=== PATIENT | male | born 1945 | race Caucasian/White ===

== ENCOUNTER 2020-07-27 12:04 | Emergency (ER) | payer MEDICARE, SELFPAY ==
--- NOTE | ~2020-07-27 | CT_ITS ---
EXAMINATION: CT brain wo con EXAM DATE: 07/27/2020 14:05 INDICATION: Increasing confusion, altered mental status. History dementia and Parkinson's. TECHNIQUE: Spiral CT of the head was performed without contrast. Axial, coronal and sagittal images were reviewed. The dose-length product (DLP) for this examination was 756.67 mGy-cm. The exposure w as tailored according to patient size, and iterative reconstruction (ASIR) was used as additional dos e reduction technique. There is no prior study for comparison. FINDINGS: There is no acute intraparenchymal hemorrhage. No evidence of intraparenchymal brain mass lesion. No evidence of acute infarction. Please note that initial head CT has limited sensitivity f or small or acute infarctions. There is moderate periventricular and subcortical hypodensity, nonspec ific but probably related to small vessel ischemic disease. There is ventricular prominence out of proportion to sulci which is suspected most likely central atrophy rather than hydrocephalus. Normal pressure hydrocephalus cannot be excluded (clinical triad ataxia/gait disturbance, dementia, urinary incontinence). There is intracranial carotid arteriosclerosis. There are no extra-axial collectio ns. There is no mass effect or midline shift. The orbits are unremarkable. Soft tissue is unremark able. Mild to moderate right maxillary sinus mucoperiosteal thickening. IMPRESSION: 1. No acute intracranial findings. 2. Chronic age related findings. Reviewed, dictated and finalized at location A.
[2020-07-27 12:11] VITALS: BP 148/83; PULSE 72; RESP 16; TEMP 36.6; O2SAT 99
[2020-07-27 12:29] LABS: Basophils Absolute Auto 0.05 K/mm3 (0.00-0.10); Basophils Percent Auto 0.6 % (0.0-1.0); Eosinophils Absolute Auto 0.24 K/mm3 (0.02-0.50); Eosinophils Percent Auto 2.7 % (1.0-6.0); Hematocrit 45.4 % (37.0-46.0); Immature Granulocyte Absolute 0.02 K/mm3 (0.00-0.00); Immature Granulocyte Percent A 0.2 % (0.0-0.0); Lymphocytes Absolute Auto 2.09 K/mm3 (1.10-4.50); Lymphocytes Percent Auto 23.7 % (18.0-42.0); Mean Corpuscular Hemoglobin 29.6 pg (27.0-31.0); Mean Corpuscular Volume 89.5 fL (78.0-102.0); Mean Platelet Volume 9.6 fl (8.7-11.0); Monocytes Absolute Auto 0.69 K/mm3 (0.10-0.90); Monocytes Percent Auto 7.8 % (2.0-11.0); Neutrophils Absolute Auto 5.7 K/mm3 (1.7-7.2); Platelet Count Result 205 K/mm3 (150-420); Red Blood Count 5.07 M/mm3 (4.70-6.10); Red Cell Distribution Width 13.1 % (11.6-14.4); White Blood Count 8.8 K/mm3 (4.8-10.8)
[2020-07-27 12:42] LABS: Alanine Aminotransferase 38 U/L (16-63); Albumin Level 3.5 g/dL (3.4-5.0); Alkaline Phosphatase 101 U/L (46-116); Anion Gap 6 mmol/L (8-16); Aspartate Amino Transferase 22 U/L (15-37); Bilirubin,Total 0.4 mg/dL (0.00-1.00); Blood Urea Nitrogen 16 mg/dL (7-18); Calcium 8.9 mg/dL (8.5-10.1); Carbon Dioxide 28 mmol/L (21-32); Chloride 101 mmol/L (98-108); Estimated CRCL calculation 56 ml/min; Estimated Glomerular Filt Rate > 60; Glucose 102 mg/dL (70-99); Osmolality Calculated 281 mOsm/kg (285-295); Potassium 3.9 mmol/L (3.5-5.1); Sodium 135 mmol/L (136-145); Total Protein 7.9 g/dL (6.4-8.2)
[2020-07-27 13:46] LABS: Add Urine Microscopic? YES; Appearance Urine Clear (Clear); Bilirubin Urine Negative (Negative); Blood Urine 2+ (Negative); Color Urine Yellow (Yellow); Glucose Urine UA Negative (Negative); Ketones Urine Negative (Negative); Leukocyte Esterase Ur Negative (Negative); Nitrate Urine Negative (Negative); Protein Urine Negative (Negative); Specific Grav Ur 1.025 (1.010-1.020); Urobilinogen Urine 0.2 mg/dL (0.2-1.0)
[2020-07-27 13:50] VITALS: BP 116/60; PULSE 67; RESP 18; O2SAT 96
[2020-07-27 13:52] LABS: Bacteria Urine None seen /hpf; Squamous Epithelial Cell Urine Rare /hpf (Few); WBC Urine 0-3 /hpf (0-3)
[2020-07-27 13:53] LABS: Mucus Urine Few /lpf
[2020-07-27 14:36] VITALS: BP 135/98; PULSE 66; RESP 18
--- NOTE | 2020-07-27 14:36 | ED.WEAKNESS ---
HPI - Weakness General Chief complaint: Altered Mental Status Stated complaint: ambulance Time Seen by Provider: 07/27/20 12:20 Source: patient and family Mode of arrival: ambulatory Limitations: no limitations History of Present Illness HPI Narrative: Patient is brought in by . He has a history of dementia and evidently pooped in the bedroom. Mrs. Rod is concerned because he has not done this before. She was worried his mental status might have changed. Other than this he has evidently been well. Evidently he made quite a mess. He never complained of any discomfort, or said anything to alert her of this behavior. He has had no symptoms at home to precede this. She is worried his dementia has gotten worse. Related Data Home Medications Medication Instructions Recorded Confirmed aspirin [Jonny Childrens Aspirin] 81 mg PO QPM 07/27/20 07/27/20 carbidopa-levodopa 1 tablet PO TID 07/27/20 07/27/20 desmopressin 0.4 mg PO QPM 07/27/20 07/27/20 donepezil 10 mg PO BID 07/27/20 07/27/20 mirtazapine 15 mg PO HS 07/27/20 07/27/20 rosuvastatin [Crestor] 10 mg PO QPM 07/27/20 07/27/20 sertraline 150 mg PO DAILY 07/27/20 07/27/20 tamsulosin 0.4 mg PO BID 07/27/20 07/27/20 Review of Systems Constitutional: Constitutional: Reports no additional constitutional complaints Eyes: Eyes: Reports no additional eye complaints ENT: Reports system reviewed and no additional complaints, except as documented Cardiovascular: Cardiovascular: Reports no additional cardiovascular complaints Respiratory: Respiratory: Reports no additional respiratory complaints Gastrointestinal: Gastrointestinal: Reports no additional gastrointestinal complaints Genitourinary: Genitourinary: Reports no additional male genitourinary complaints Musculoskeletal: Musculoskeletal: Reports no additional musculoskeletal complaints Integumentary/Breasts: Skin/Breast: Reports system reviewed and no additional complaints, except as docu Neurologic: Reports system reviewed and no additional complaints, except as documented Psychiatric: Psychiatric: Reports no additional psychiatric complaints Endocrine: Endocrine: Reports no additional endocrine complaints Hematologic/Lymphatic: Hematologic/Lymphatic: Reports no additional hematologic/lymphatic complaints Allergic/Immunologic: Allergic/Immunologic: Reports no additional allergic/immunologic complaints [facility] Past Medical History Medical History Alzheimer disease Dementia Hernia Hyperlipidemia Parkinson disease Renal calculi Surgical History Surgical History Stented coronary artery Family History Family History Father No problems noted. Social History Social History (Updated 07/27/20 @ 19:54 by Kulwant Alejandre MD) Smoking status: Former smoker Tobacco type: cigarettes Alcohol intake: never Substance use: never Living arrangements: with family Sexual Orientation (if Verbalized by the Patient): Straight or Heterosexual Exam Const: General: no acute distress Orientation/consciousness: patient oriented x3 HENMT: Head: normal to inspection Ears: TM's normal bilaterally General nose exam: Normal external nose present Face and sinus: normal facial exam Mouth: Yes Normal oral and palatal mucosa present Throat: posterior oropharynx normal Eyes: Conjunctivae: conjunctivae normal Neck: Neck: normal visual inspection Chest: Chest palpation & inspection: normal inspection of the chest Resp: Effort & Inspection: normal respiratory effort Auscultation: clear to auscultation bilaterally Cardio: Rate: regular rate Rhythm: regular rhythm GI: GI Palp: Yes Soft to palpation (nontender ) Back/Spine/Pelvis: Back: no CVA tenderness Skin: General skin exam: normal color Neuro: General: patient oriented x3 Extrem: General: norm
== END 2020-07-27 14:51 | disposition home or self-care (01) ==
PROVIDERS: Emergency Provider Emergency Medicine; PCP Internal Medicine
DX: G30.9 Alzheimer's disease, unspecified (principal); E78.5 Hyperlipidemia, unspecified; Z87.891 Personal history of nicotine dependence
CPT/HCPCS: 36415; 70450; 80053; 81001; 85025; 99282; 99284

== ENCOUNTER 2020-08-22 21:15 | Emergency (ER) | payer MEDICARE, SELFPAY ==
--- NOTE | ~2020-08-22 | CT_ITS ---
EXAMINATION: CT brain wo con DATE: 08/22/2020 22:05 INDICATION: Confusion post unwitnessed fall. TECHNIQUE: Computed tomography (CT) of the head was performed without intravenous contrast. Sagittal and coronal reconstructions were performed. The mA was adjusted according to patient size. Iterative reconstruction technique was employed. The dose-length product was 1362.00 mGy-cm. COMPARISON: head CT dated 07/27/2020 FINDINGS: Prominent motion artifact which moderately limits evaluation. No fracture. No acute intracranial hemo rrhage, acute infarction or abnormal extra axial fluid collection. There is moderate scattered white matter hypoattenuation consistent with chronic small vessel ischemic disease. Again seen is symmetric enlargement of the ventricles which is disproportionate to the relatively mild increased prominence of the sulci which could be related to either central predominant cerebral atrophy or normal pressure hydrocephalus. No mass/mass effect. Mucosal thickening in the right maxillary and bilateral ethmoid sinuses. The orbits and mastoid air cells are normal. IMPRESSION: 1. Motion artifact moderately limiting evaluation. 2. No fracture or acute intracranial process. 3.. Moderate scattered white matter hypoattenuation consistent with chronic small vessel ischemic dis ease. 4. Unchanged disproportionate enlargement of the ventricles relative to the sulci which could be due to central predominant atrophy or normal pressure hydrocephalus (NPH: clinical triad ataxia/gait dist urbance, dementia, urinary incontinence). Reviewed, dictated and finalized at location A. IMPRESSION: 1. Motion artifact moderately limiting evaluation. 2. No fracture or acute intracranial process. 3.. Moderate scattered white matter hypoattenuation consistent with chronic sma ll vessel ischemic disease. 4. Unchanged disproportionate enlargement of the ventricles relative to the sul ci which could be due to central predominant atrophy or normal pressure hydroce phalus (NPH: clinical triad ataxia/gait disturbance, dementia, urinary incontin ence).
--- NOTE | ~2020-08-22 | CT_ITS ---
EXAMINATION: CT pelvis wo con DATE: 08/22/2020 22:06 INDICATION: Left hip pain post fall TECHNIQUE: High resolution computed tomography (CT) of the pelvis was performed without intravenous c ontrast. Additional sagittal and coronal reconstructions were performed. Automated exposure control a nd iterative reconstruction technique were employed. The dose-length product was 828.19 mGy-cm. COMPARISON: 05/22/2013 FINDINGS: Transcervical fracture of the proximal left femur with proximal migration resulting in varus angulati on as well as external rotation resulting in posterior angulation. The femoral head remains normally centered within the left acetabulum with mild left hip osteoarthritis. No other fractures identified. Mild to moderate right hip osteoarthritis. Mild lumbar spondylosis. Normal appendix. Moderate amount of stool in the distal colon. Large fat-containing right inguinal hernia which extends to the base o f the scrotum. Postoperative change of prior left inguinal hernia repair. IMPRESSION: 1. Displaced and angulated transcervical fracture of the proximal left femur. Reviewed, dictated and finalized at location A.
--- NOTE | ~2020-08-22 | CT_ITS ---
EXAMINATION: CT cervical spine wo con DATE: 08/22/2020 22:05 INDICATION: Unwitnessed fall with head injury TECHNIQUE: Computed tomography (CT) of the cervical spine was performed without intravenous contrast. Automated exposure control and iterative reconstruction technique were employed. The dose-length pro duct was 128.29 mGy-cm. COMPARISON: None FINDINGS: Alignment is normal. Anterior fusion at C5-C6. Unfused vertebral body heights are normal. No fracture . Moderate osteoarthritis at the atlantoaxial articulation with some heterotopic ossification along t he stabilizing ligaments. Moderate disc height loss at C6-C7. Mild disc height loss at C3-C4 and C4-C 5. Cervical soft tissues are unremarkable. Visual is apices of the lungs are clear. The following dis c levels are specifically discussed: C2-C3: Disc is bulging. Heterotopic ossification along the posterior longitudinal ligament. There is mild bilateral uncovertebral joint osteoarthritis. There is mild right and severe left facet joint os teoarthritis. There is no neural foraminal stenosis. There is mild central canal stenosis. C3-C4: Small posterior disc osteophyte complex. There is moderate right and severe left uncovertebral joint osteoarthritis. There is moderate right and severe left facet joint osteoarthritis. There is m ild right and moderate left neural foraminal stenosis. There is mild central canal stenosis. C4-C5: Disc is bulging. There is moderate bilateral uncovertebral joint osteoarthritis. There is mode rate bilateral facet joint osteoarthritis. There is mild right and minimal left neural foraminal sten osis. There is mild central canal stenosis. C5-C6: Disc space and uncovertebral joints are fused with posterior osteophytes. There is mild bilate ral facet joint osteoarthritis. There is mild right and moderate left neural foraminal stenosis. Ther e is mild central canal stenosis. C6-C7: Disc is mildly bulging. There is severe bilateral uncovertebral joint osteoarthritis. There is mild to moderate bilateral facet joint osteoarthritis. There is moderate right and mild to moderate left neural foraminal stenosis. There is mild central canal stenosis. C7-T1: The disc does not extend beyond the endplate margin. There is no uncovertebral joint osteoarth ritis. There is moderate bilateral facet joint osteoarthritis. There is no neural foraminal stenosis. There is no central canal stenosis. IMPRESSION: 1. Moderate cervical spondylosis with anterior fusion at C5-C6. No acute osseous abnormality. Reviewed, dictated and finalized at location A. IMPRESSION: 1. Moderate cervical spondylosis with anterior fusion at C5-C6. No acute osseou s abnormality.
[2020-08-22] MEDS: fentaNYL CITRATE INJ (*CRX) 100 MCG/2 ML VIAL 50 MCG IV PUSH (21:15)
--- NOTE | 2020-08-22 21:26 | ED.GENADULT ---
HPI - General Adult General Chief complaint: Fall Stated complaint: AMB Source: EMS Mode of arrival: EMS Limitations: dementia History of Present Illness HPI narrative: Jim is a 75M with a PMH of alzheimer dementia, HLD, and Parkinson's that was brought to the ED by EMS after an unwitnessed fall. He was walking in the hallway when he wasn't suppose to be and fell. He was put in a wheelchair then his bed. At that time there was reportedly no pain. However, he later started having pain so EMS was called. He is only oriented to self so further history is obtainable. Related Data Home Medications Medication Instructions Recorded Confirmed carbidopa-levodopa 2 tablet PO QID 07/27/20 08/22/20 sertraline 150 mg PO DAILY 07/27/20 08/22/20 tamsulosin 0.8 mg PO DAILY 07/27/20 08/22/20 tuberculin PPD [Tubersol] 0.1 tb unit INTRADERMAL ONCE 08/22/20 08/22/20 Allergies Allergy/AdvReac Type Severity Reaction Status Date / Time No Known Allergies Allergy Verified 08/22/20 21:48 Review of Systems Review of Systems: ROS unobtainable: Yes unobtainable due to mental status [facility] Past Medical History Medical History Alzheimer disease Dementia Hernia Hyperlipidemia Parkinson disease Renal calculi Surgical History Surgical History Stented coronary artery Family History Family History Father No problems noted. Social History Social History Smoking status: Former smoker Tobacco type: cigarettes Alcohol intake: never Substance use: never Gender identity (if verbalized by the patient): Male Exam Const: Other: Oriented to self only. Screaming in pain when he moved before pain meds. HENMT: Other: Normocephalic, atrauamtic. Has c-collar on placed by EMS Eyes: Conjunctivae: conjunctivae normal Pupils: Equal, round and reactive pupils present Neck: Other: In c-collar Resp: Effort & Inspection: normal respiratory effort Auscultation: clear to auscultation bilaterally Cardio: Rate: regular rate Rhythm: regular rhythm GI: GI Palp: Yes Soft to palpation, No Tenderness to palpation present (GI) and No Guarding due to palpation present (GI) Skin: General skin exam: normal color Rashes: no rashes Neuro: General: moves all extremities Other: Oriented to self. Extrem: Other: Left hip and thigh are swollen, TTP and warm to the touch Psych: Mental Status: mental status grossly normal Course Course Emergency Course: He was given 50mcg for pain control, CTs, labs. Given his altered mental status getting a CT was very difficult. We tried 2.5 of Haldol and 1mg of Ativan with little effect. After several minutes when he had not calmed down he was given another dose of fentanyl which did calm him down enough for the CT scan. I spoke with his and DPOA that wanted us to consult [facility]. I called and spoke with Xuan at [phone]. I spoke with Dr. Walsh at 2300 and Roseanna Washington at [phone] who accepted the patient for transfer. Jim was transferred to [facility] for a higher level of care. Vital Signs Vital signs: Vital Signs Temperature 99.0 F 08/22/20 21:28 Pulse Rate 70 08/22/20 21:28 Respiratory Rate 20 08/22/20 21:28 Blood Pressure 181/91 H 08/22/20 21:28 Pulse Oximetry 92 08/22/20 21:28 Temperature 99.8 F H 08/23/20 00:06 Pulse Rate 81 08/23/20 00:06 Respiratory Rate 18 08/23/20 00:06 Blood Pressure 148/89 H 08/23/20 00:06 Pulse Oximetry 96 08/23/20 00:06 Medical Decision Making Vital Signs Vital Signs: Vital Signs Temperature 99.0 F 08/22/20 21:28 Pulse Rate 70 08/22/20 21:28 Respiratory Rate 20 08/22/20 21:28 Blood Pressure 181/91 H 08/22/20 21:28 Pulse Oximetry 92 08/22/20 21:28 [facility]
[2020-08-22 21:28] VITALS: BP 181/91; PULSE 70; RESP 20; TEMP 37.2; O2SAT 92
[2020-08-22] MEDS: HALOPERIDOL LACTATE 5 MG/ML VIAL IV PUSH (21:45)
[2020-08-22] MEDS: LORazepam INJ (*CRX) 2 MG/ML VIAL 1 MG IV PUSH (21:45)
[2020-08-22] MEDS: fentaNYL CITRATE INJ (*CRX) 100 MCG/2 ML VIAL 50 MCG NASAL (21:45)
[2020-08-22 22:28] LABS: Basophils Absolute Auto 0.04 K/mm3 (0.00-0.10); Basophils Percent Auto 0.4 % (0.0-1.0); Eosinophils Absolute Auto 0.12 K/mm3 (0.02-0.50); Eosinophils Percent Auto 1.2 % (1.0-6.0); Hematocrit 41.8 % (37.0-46.0); Hemoglobin 13.5 g/dL (12.4-15.3); Immature Granulocyte Absolute 0.05 K/mm3 (0.00-0.00); Immature Granulocyte Percent A 0.5 % (0.0-0.0); Lymphocytes Absolute Auto 1.83 K/mm3 (1.10-4.50); Lymphocytes Percent Auto 17.7 % (18.0-42.0); Mean Corpuscular HGB Conc 32.3 g/dL (32.0-36.0); Mean Corpuscular Hemoglobin 29.3 pg (27.0-31.0); Mean Corpuscular Volume 90.9 fL (78.0-102.0); Mean Platelet Volume 10.1 fl (8.7-11.0); Monocytes Absolute Auto 0.67 K/mm3 (0.10-0.90); Monocytes Percent Auto 6.5 % (2.0-11.0); Neutrophils Absolute Auto 7.7 K/mm3 (1.7-7.2); Neutrophils Percent Auto 73.7 % (50.0-70.0); Platelet Count Result 191 K/mm3 (150-420); White Blood Count 10.4 K/mm3 (4.8-10.8)
[2020-08-22 22:38] LABS: Prothrombin Time 10.4 Seconds (9.50-12.10)
--- NOTE | 2020-08-22 22:42 | PC.NURSE ---
Report received, pt. resting, ERP Dr. Shanks spoke c pts. (POA) and she wishes to have spouse transferred to [place] for ortho care and surgery if possible. Dr. Shanks called [place] and spoke c house supv. Govea, will await call back from Ortho.
[2020-08-22 22:44] VITALS: BP 131/68; PULSE 81; RESP 20; O2SAT 96
[2020-08-22 22:48] LABS: Alanine Aminotransferase 8 U/L (16-63); Alkaline Phosphatase 90 U/L (46-116); Anion Gap 9 mmol/L (8-16); Aspartate Amino Transferase 19 U/L (15-37); Bilirubin,Total 0.4 mg/dL (0.00-1.00); Blood Urea Nitrogen 15 mg/dL (7-18); Calcium 8.8 mg/dL (8.5-10.1); Carbon Dioxide 26 mmol/L (21-32); Chloride 99 mmol/L (98-108); Estimated CRCL calculation 58 ml/min; Estimated Glomerular Filt Rate > 60; Glucose 128 mg/dL (70-99); NT Pro B Type Natriuretic Pept 72 pg/mL (0-125); Osmolality Calculated 280 mOsm/kg (285-295); Potassium 3.9 mmol/L (3.5-5.1); Sodium 134 mmol/L (136-145); Total Protein 7.9 g/dL (6.4-8.2); Troponin I 7.6 ng/L (0.00-60.4)
[2020-08-23 00:06] VITALS: BP 148/89; PULSE 81; RESP 18; TEMP 37.7; O2SAT 96
== END 2020-08-23 00:46 | disposition short-term general hospital (02) ==
PROVIDERS: Emergency Provider Family Medicine; PCP Internal Medicine
DX: S72.002A Fracture of unspecified part of neck of left femur, initial encounter for closed fracture (principal); W19.XXXA Unspecified fall, initial encounter; E78.5 Hyperlipidemia, unspecified; G20 Parkinson's disease; Z87.891 Personal history of nicotine dependence
CPT/HCPCS: 36415; 70450; 72125; 72192; 80053; 83880; 84484; 85025; 85610; 96374; 96375; 99285; J1630; J2060; J3010

== ENCOUNTER 2020-08-22 23:32 | Inpatient (IN) | payer MEDICARE, SELFPAY ==
--- NOTE | ~2020-08-22 | XR_ITS ---
EXAMINATION: XR hip LT 2V w AP pelvis DATE: 08/23/2020 07:40 INDICATION: Left hip fracture. TECHNIQUE: An anteroposterior view of the pelvis and 2 views of left hip were obtained. COMPARISON: CT pelvis 08/22/2020 FINDINGS: There is a transcervical fracture of left femoral neck. The distal fracture fragment demons trates 21 degrees varus angulation and 2.2 cm anterior displacement. There is moderate osteoarthritis of the hips. There are surgical clips from left-sided hernia repair. IMPRESSION: 1. Transcervical fracture of left femoral neck. 2. Moderate osteoarthritis of the hips. Reviewed, dictated and finalized at location A.
--- NOTE | ~2020-08-22 | XR_ITS ---
EXAMINATION: XR surgery orthopedic DATE: 08/23/2020 15:17 INDICATION: Left hip ORIF TECHNIQUE: 2 fluoroscopic images of the left hip were obtained during procedure performed by Dr. Ana leung. Radiologist was not present for the imaging or procedure. The amount of fluoroscopy time used du ring this procedure was 1.0 minutes. COMPARISON: 08/23/2020 FINDINGS: Interval reduction and internal fixation with 3 cannulated lag screws of a transcervical fracture of the proximal left femur which is now in essentially anatomic alignment. Mild to moderate left hip ost eoarthritis. Postoperative change of prior left inguinal hernia repair. IMPRESSION: 1. Essentially anatomic alignment post open reduction internal fixation of a transcervical fracture o f the proximal left femur. Reviewed, dictated and finalized at location A. IMPRESSION: 1. Essentially anatomic alignment post open reduction internal fixation of a tr anscervical fracture of the proximal left femur.
[2020-08-23] VITALS (18 sets, daily range): BP systolic 118–156; BP diastolic 67–96; PULSE 63–87; RESP 12–24; TEMP 36.6–37.3; O2SAT 92–100; BMI 28.5; BMI 31.0
--- NOTE | 2020-08-23 01:46 | PC.NURSE ---
This patient, Jim Rod, was admitted to [facility] Surg Room 322-01 @ 01:20 as a direct admission from [facility] via EMS stretcher. Patient/family oriented to hospital policies and general routines including ID bracelet, bed and alarms, visiting hours, pain management, procedures, bathroom and other care routines, personal items, smoking policy, room service/diet, and visiting hours. Information on how to activate the Rapid Response Team has been discussed. Patient/Family are encouraged to report perceived risks to care and to ask questions if they do not understand what they are told or what they should do.
--- NOTE | 2020-08-23 03:06 | PM.IMHP ---
H&P: HPI History of Present Illness Date/Time: 08/23/20 03:06 this is a 75-year-old male patient who resides at [facility] in [facility]. The patient has a past medical history of Alzheimer's dementia and Parkinson's. The patient was brought to the emergency room after an unwitnessed fall. The patient is walking the hallway when he was not supposed to be any fell. He has put to wheelchair and then into his bed. The patient reportedly had no pain. The patient is nonverbal and is not able answer questions for me. The patient was orientated to himself at [facility]. Dr. cintron was the ER doctor at [facility] who called report to me. Cervical spine CT was read as moderate cervical spondylosis with anterior fusion at C5 and C6.Pelvis CT displaced and angulated trans cervical fracture proximal left femur. Artifact moderately limiting evaluation. No fracture or acute intracranial process. Moderate scattered white matter hypoattenuation consistent with chronic small vessel ischemic disease. Unchanged just proportionate enlargement of the ventricles related to the sulci which could be due to central predominant atrophy or normal pressure hydrocephalus. had been notified from [facility]. He agreed to consult on the patient. Patient is being admitted to inpatient services on the date of service of 08/23/2020. Chief Complaint: Left hip pain Review of Systems Review of Systems: ROS unobtainable: Yes unobtainable due to mental status [facility] Past Medical History Medical History (Updated 08/23/20 @ 03:20 by Roseanna Washington NP) Alzheimer disease BPH (benign prostatic hyperplasia) Dementia Hernia Hyperlipidemia Parkinson disease Renal calculi Thoracic aneurysm without mention of rupture Surgical History Surgical History Hx of cervical spinal arthrodesis Stented coronary artery Family History Family History Father No problems noted. 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 Darling Rod's listed as his spouse. Patient resides at a residential. Smoking status: Unknown if ever smoked Tobacco type: cigarettes Alcohol intake: unknown Substance use: unknown Gender identity (if verbalized by the patient): Male Spiritual care concerns: No Meds Home Medications and Allergies Home Medications Medication Instructions Recorded Confirmed Type carbidopa-levodopa 2 tablet PO QID 07/27/20 08/23/20 History sertraline 150 mg PO DAILY 07/27/20 08/23/20 History tamsulosin 0.8 mg PO DAILY 07/27/20 08/23/20 History Allergies Allergy/AdvReac Type Severity Reaction Status Date / Time No Known Allergies Allergy Verified 08/23/20 02:35 Vital Signs Vital Signs - 24 hr 08/23/20 01:20 08/23/20 02:39 Temperature 37.3 C Pulse Rate 87 Respiratory Rate 20 Blood Pressure 133/79 Pulse Oximetry 94 94 Exam Const: General: cooperative, healthy appearing, comfortable, no acute distress and well developed Nutritional Appearance: average body habitus and well nourished Orientation/consciousness: oriented to person Limitations: altered mental status HENMT: Head: normal to inspection, No palpable skull fracture present, normocephalic and atraumatic Ears: hearing grossly normal bilaterally and external ears normal General nose exam: Normal external nose present, Normal nares present and No nasal polyps present Eyes: General: appearance normal, both eyes and all related structures Alignment and Position: alignment normal Periorbital: periorbital findings normal Eyelids: eyelids normal Conjunctivae: conjunctivae normal Sclera: sclerae normal Cornea: corneas normal Pupils: Equal, round and reactive pupils present EOM: EOMs inta
[2020-08-23] MEDS: DEXTROSE 5%/0.9% SOD CHL 1,000 ML 100 ML IV CONT (03:48)
[2020-08-23 03:58] LABS: Add Urine Microscopic? YES; Appearance Urine Cloudy (Clear); Bilirubin Urine Negative (Negative); Blood Urine 2+ (Negative); Color Urine Yellow (Yellow); Glucose Urine UA Negative (Negative); Ketones Urine Negative (Negative); Leukocyte Esterase Ur Negative LEU/UL (NEGATIVE); Mucus Urine Rare /lpf; Nitrate Urine Negative (Negative); Protein Urine 1+ mg/dL (Negative); RBC Urine 51-75 /hpf (0-2); Specific Grav Ur 1.021 (1.001-1.035); Squamous Epithelial Cell Urine Rare /hpf (Few); Urobilinogen Urine Negative mg/dL (<2.0); WBC Urine 0-3 /hpf (0-3)
[2020-08-23 06:05] LABS: Basophils Percent Auto 0.4 % (0.2-1.2); Eosinophils Absolute Auto 0.1 K/mm3 (0-0.3); Eosinophils Percent Auto 1.2 % (0-4.4); Hematocrit 36.7 % (42.0-52.0); Hemoglobin 12.3 g/dL (14.0-18.0); Immature Granulocyte Absolute 0.03 K/mm3 (0.00-0.031); Immature Granulocyte Percent A 0.3 % (0-0.5); Lymphocytes Absolute Auto 1.57 K/mm3 (0.9-3.2); Lymphocytes Percent Auto 14.8 % (18.3-44.2); Mean Corpuscular HGB Conc 33.5 g/dl (32-36); Mean Corpuscular Hemoglobin 28.9 pg (26-34); Mean Corpuscular Volume 86.4 fl (80-100); Mean Platelet Volume 9.9 fl (7.4-10.4); Monocytes Absolute Auto 0.8 K/mm3 (0.1-0.6); Monocytes Percent Auto 7.1 % (2.6-8.5); Neutrophils Absolute Auto 8.1 K/mm3 (1.3-6.7); Neutrophils Percent Auto 76.2 % (45.5-73.1); Platelet Count Result 176 k/mm3 (150-375); Red Blood Count 4.25 M/mm3 (4.6-6.20); Red Cell Distribution Width 12.8 % (11.5-14.5); White Blood Count 10.6 K/mm3 (4.5-10.0)
[2020-08-23 06:48] LABS: Anion Gap 3 mmol/L (8-16); Blood Urea Nitrogen 13 mg/dL (9-20); Calcium 8.2 mg/dL (8.4-10.2); Carbon Dioxide 27 mmol/L (22-30); Chloride 103 mmol/L (98-107); Estimated CRCL calculation 87 ml/min; Estimated Glomerular Filt Rate > 60; Glucose 128 mg/dL (75-110); Magnesium 1.9 mg/dL (1.6-2.3); Potassium 3.7 mmol/L (3.4-5.0); Sodium 133 mmol/L (137-145)
--- NOTE | 2020-08-23 07:09 | PM.CNOR ---
Assessment and Plan Assessment and plan (1) Closed displaced fracture of left femoral neck: Code(s): S72.002A - Fracture of unspecified part of neck of left femur, initial encounter for closed fracture Status: Acute Assessment and Plan: 75-year-old gentleman with Alzheimer's dementia status post fall yesterday with left hip femoral neck fracture on CT scan. Awaiting plain radiographs to assist with fracture orientation. Decision for operative versus non operative care by family. Advantage of operative care reviewed which includes pain control, ability to care for patient with hygiene and mobility. Patient may not be independent ambulator based on ability to rehab and perform therapy. Operative risks reviewed as well. Risk of non operative treatment including pneumonia, skin ulceration, DVT, PE reviewed. We will discuss further after radiographs of the left hip performed. Continue with pain control and mechanical DVT prophylaxis in the interim. History of Present Illness HPI Consult date: 08/23/20 Requesting physician: Tonny Shanks DO Consult reason: fracture Chief complaint: Left hip fracture Narrative: 75-year-old gentleman [facility] resident with Alzheimer's who was found down in the hallway. Complained of left hip pain for and was evaluated at [facility] Emergency Room. Found to have left hip fracture. Transferred here for further evaluation and care. Prior to injury patient was ambulatory with assistance. By report, oriented to self only. Apparently family considering hospice decision. Review of Systems Constitutional: Constitutional: Denies fever(s) Eyes: Eyes: Denies blurry vision ENT: Reports Normal hearing present Cardiovascular: Cardiovascular: Denies chest pain and Denies dyspnea Respiratory: Respiratory: Denies dyspnea and Denies wheezing Gastrointestinal: Gastrointestinal: Denies abdominal pain Genitourinary: Genitourinary: Denies urinary urgency Musculoskeletal: Musculoskeletal: Reports as per HPI and Denies numbness Integumentary/Breasts: Skin/Breast: Denies changing lesions and Denies sores Neurologic: Reports Normal hearing present, Denies behavioral changes, Denies numbness and Denies convulsions Psychiatric: Psychiatric: Reports as per HPI Endocrine: Endocrine: Denies heat intolerance Hematologic/Lymphatic: Hematologic/Lymphatic: Denies easy bleeding Allergic/Immunologic: Allergic/Immunologic: Denies wheezing PMFSH Past Medical History Medical History Alzheimer disease BPH (benign prostatic hyperplasia) Dementia Hernia Hyperlipidemia Parkinson disease Renal calculi Thoracic aneurysm without mention of rupture Surgical History Surgical History Hx of cervical spinal arthrodesis Stented coronary artery Family History Family History Father No problems noted. 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 Darling Rod's listed as his spouse. Patient resides at a detention. Smoking status: Unknown if ever smoked Tobacco type: cigarettes Alcohol intake: unknown Substance use: unknown Gender identity (if verbalized by the patient): Male Spiritual care concerns: No Meds Home Medications and Allergies Home Medications Medication Instructions Recorded Confirmed Type carbidopa-levodopa 2 tablet PO QID 07/27/20 08/23/20 History sertraline 150 mg PO DAILY 07/27/20 08/23/20 History tamsulosin 0.8 mg PO DAILY 07/27/20 08/23/20 History Allergies Allergy/AdvReac Type Severity Reaction Status Date / Time No Known Allergies Allergy Verified 08/23/20 02:35 Vital Signs Vital Signs - 24 hr 08/23/20 01:20 08/23/20 02:39 08/23/20 06
--- NOTE | 2020-08-23 08:41 | WPDANESEPPF ---
Anes - Initial Pre Proc Eval Procedure: Operation Date: 08/23/20 15:30 Proposed Procedures p Left Hip Pinning - John Funk MD Date/Time: 08/23/20 08:41 Surgeon: Ej Mackey MD Pre Op Diagnosis: Left hip fracture Patient Data Age: 75 Gender: M Height: 1.8 m Weight: 101 kg Last Vital Signs Temp 37.2 C 08/23/20 06:09 Pulse 87 08/23/20 06:00 Resp 22 H 08/23/20 06:00 BP 131/77 08/23/20 06:00 Pulse Ox 93 08/23/20 06:00 Allergies Allergy/AdvReac Type Severity Reaction Status Date / Time No Known Allergies Allergy Verified 08/23/20 02:35 Home Medications Medication Instructions Recorded Confirmed Type carbidopa-levodopa 2 tablet PO QID 07/27/20 08/23/20 History sertraline 150 mg PO DAILY 07/27/20 08/23/20 History tamsulosin 0.8 mg PO DAILY 07/27/20 08/23/20 History Laboratory Tests 08/23/20 08/23/20 08/23/20 03:43 05:44 05:44 WBC 10.6 K/mm3 H K/mm3 (4.5-10.0) RBC 4.25 M/mm3 L M/mm3 (4.6-6.20) Hgb 12.3 g/dL L g/dL (14.0-18.0) Hct 36.7 % L % (42.0-52.0) MCV 86.4 fl fl (80-100) MCH 28.9 pg pg (26-34) MCHC 33.5 g/dl g/dl (32-36) RDW 12.8 % % (11.5-14.5) Plt Count 176 k/mm3 k/mm3 (150-375) MPV 9.9 fl fl (7.4-10.4) Immature Gran % (Auto) 0.3 % % (0-0.5) Neut % (Auto) 76.2 % H % (45.5-73.1) Lymph % (Auto) 14.8 % L % (18.3-44.2) [place] % (Auto) 7.1 % % (2.6-8.5) Eos % (Auto) 1.2 % % (0-4.4) Baso % (Auto) 0.4 % % (0.2-1.2) Lymph # (Auto) 1.57 K/mm3 K/mm3 (0.9-3.2) [place] # (Auto) 0.8 K/mm3 H K/mm3 (0.1-0.6) Eos # (Auto) 0.1 K/mm3 K/mm3 (0-0.3) Baso # (Auto) 0.0 K/mm3 K/mm3 (0.0-0.1) Abs Immat Gran (auto) 0.03 K/mm3 K/mm3 (0.00-0.031) Absolute Neuts (auto) 8.1 K/mm3 H K/mm3 (1.3-6.7) Absolute Nucleated RBC 0.0 K/mm3 K/mm3 (0.0-0.012) Nucleated RBC % 0.0 % % (0.0-0.2) Sodium 133 mmol/L L mmol/L (137-145) Potassium 3.7 mmol/L mmol/L (3.4-5.0) Chloride 103 mmol/L mmol/L (98-107) Carbon Dioxide 27 mmol/L mmol/L (22-30) Anion Gap 3 mmol/L L mmol/L (8-16) BUN 13 mg/dL mg/dL (9-20) Creatinine 0.80 mg/dL mg/dL (0.7-1.3) Estim Creat Clear Calc 87 ml/min ml/min Estimated GFR > 60 (59 - ) Glucose 128 mg/dL H mg/dL (75-110) Calcium 8.2 mg/dL L mg/dL (8.4-10.2) Magnesium 1.9 mg/dL mg/dL (1.6-2.3) Urine Color Yellow (Yellow) Urine Appearance Cloudy H (Clear) Urine pH 7.0 (5.0-9.0) Ur Specific [place] 1.021 (1.001-1.035) Urine Protein 1+ mg/dL H mg/dL (Negative) Urine Glucose (UA) Negative mg/dL mg/dL (Negative) Urine Ketones Negative mg/dL mg/dL (Negative) Ur Blood (Man) 2+ H (Negative) Urine Nitrate Negative (Negative) Urine Bilirubin Negative (Negative) Urine Urobilinogen Negative mg/dL mg/dL (<2.0) Ur Leukocyte Esterase Negative BLADE/UL BLADE/UL (NEGATIVE) Urine RBC 51-75 /hpf H /hpf (0-2) Urine WBC 0-3 /hpf /hpf (0-3) Ur Squamous Epith Cells Rare /hpf /hpf (Few) Urine Mucus Rare /lpf /lpf Patient hx anesthesia problems: none Family hx anesthesia problems: none PMFSH Past Medical History Medical History (Updated 08/23/20 @ 08:46 by Tahir Oliveros MD) Alzheimer disease Aortic aneurysm without rupture BPH (benign prostatic hyperplasia) CAD (coronary artery disease) Cardiomyopathy Dementia Hernia Hyperlipidemia Parkinson disease Renal calculi Thoracic aneurysm without mention of rupture Surgical History Surgical History (Reviewed 08/23/20 @ 07:12 by John Herrera
[2020-08-23] MEDS: fentaNYL CITRATE INJ (*CRX) 100 MCG/2 ML VIAL 25 MCG IV PUSH (11:08)
--- NOTE | 2020-08-23 11:45 | PM.IMPN ---
Progress Note: A&P Assessment and Plan (1) Closed displaced fracture of left femoral neck: Code(s): S72.002A - Fracture of unspecified part of neck of left femur, initial encounter for closed fracture Status: Acute Assessment and Plan: Ortho has been consulted. Further recommendations per Ortho. Continue with IV fluids in the patient is NPO at this time. Continue with pain medications as needed. 08/23/20 11:45 patient is 75-year-old male resident of [facility] patient was found in the corridor after he had fell and had difficulty getting up patient was seen at the [place] emergency depart and x-ray of the hip showed left hip fracture, unfortunately patient is poor historian nonverbal unable to provide any review of symptoms or history, patient was seen by orthopedic surgeon and discuss with family recommending surgical correction of the hip to help improve patient future ambulation, family has agreedvand patient taken to OR for the surgery, will follow-up and work with the patient for physical therapy and further recommendation to follow. (2) Parkinson disease: Code(s): G20 - Parkinson's disease Status: Chronic Assessment and Plan: The patient is NPO at this time for possible surgery his carbidopa levodopa but is on hold at this time. In the event that the patient does not go to surgery please restart his home medications. (3) BPH (benign prostatic hyperplasia): Code(s): N40.0 - Benign prostatic hyperplasia without lower urinary tract symptoms Status: Chronic Assessment and Plan: Patient's and on tamsulosin and he is npo at this point. (4) Dementia: Qualifiers: Alzheimer's disease onset: unspecified onset Dementia behavioral disturbance: with behavioral disturbance Dementia type: Alzheimer's Qualified Code(s): G30.9 - Alzheimer's disease, unspecified; F02.81 - Dementia in other diseases classified elsewhere with behavioral disturbance Code(s): F03.90 - Unspecified dementia without behavioral disturbance Status: Chronic Assessment and Plan: Patient is on sertraline. But he is NPO at this time. Subjective Date/time seen: 08/23/20 11:45 patient is 75-year-old male resident of [facility] patient was found in the corridor after he had fell and had difficulty getting up patient was seen at the [place] emergency depart and x-ray of the hip showed left hip fracture, unfortunately patient is poor historian nonverbal unable to provide any review of symptoms or history, patient was seen by orthopedic surgeon and discuss with family recommending surgical correction of the hip to help improve patient future ambulation, family has agreedvand patient taken to OR for the surgery, will follow-up and work with the patient for physical therapy and further recommendation to follow. Review of Systems Review of Systems: ROS unobtainable: Yes unobtainable due to medical condition Exam Narrative: Exam Narrative: Elderly frail Patient is comfortable, NAD HEENT: eyes are clear and none icteric LUNGS:CTA HEART: RR S1S2 ABD: BS+, Soft and nontender Lower extremities: no edema MS: Left lower extremity externally rotated SKIN: nonjaundiced Neuro: grossly intact. Objective Data Vital Signs Vital Signs: Vital Signs - 24 hr 08/23/20 01:20 08/23/20 02:39 08/23/20 06:00 Temperature 99.2 F 99.2 F Pulse Rate 87 87 Respiratory Rate 20 22 H Blood Pressure 133/79 131/77 Pulse Oximetry 94 94 93 08/23/20 06:09 Temperature 99 F Pulse Rate Respiratory Rate Blood Pressure Pulse Oximetry Intake/Output Intake/Output: Intake & Output 08/20/20 08/21/20 08/22/20 08/23/20 23:59 23:59 23:59 23:59 Intake Total 100 Output Total 500 Balance -400 Meds/Results Medications: Active Medications Generic Name Dose Route Start Last Admin Trade Name Freq PRN Reason Stop Dose Admin Fentanyl Citrate 25 mcg 08/23/20 03:23 08/23/20 1
[2020-08-23] MEDS: LACTATED RINGERS 1,000 ML 30 ML IV CONT (13:38)
--- NOTE | 2020-08-23 13:44 | WPDHPUPDATE1 ---
History and Physical Update Update Date/Time: 08/23/20 13:44 Discussed nonoperative and operative treatment options with the family and patient. Risks and benefits of each as well as alternatives were reviewed. All of the family and patient's questions were answered. The risks of surgery reviewed including but not limited to: Neurovascular damage, wound complication, infection, blood clot, pulmonary embolus, stroke, myocardial infarction, and anesthetic risks up to and including . Continued pain and possible dysfunction were explained. Specific risks of the procedure including later recurrence of deformity. No guarantees were offered. If hardware used, discussed risk of failure/ breakage and possible need for removal. If complications occur, the patient understands the need for further treatment, possible further surgery. Familyverbalizes understanding and wishes to proceed. PLAN: Reduction left hip fracture with internal fixation History and Physical has been reviewed, including an updated exam of the patient. There are NO changes in the patient's condition. Risks, benefits, and alternatives have been discussed with the family and questions answered. The advantage of stabilization and surgical fixation for the hip fracture versus risks involved with surgery and the risks involved with non operative hip fracture treatment were discussed in detail with the family and power of trust and estates attorney. Their questions were answered. Family and power of trust and estates attorney gree to proceed with procedure.
[2020-08-23] MEDS: ceFAZolin 2 GM/D5W 50 ML 2 GM/50 ML BAG IVPB (14:10)
[2020-08-23] MEDS: BUPIVACAINE/EPINEPHRINE 0.5% 30 ML VIAL INFILTRATE (14:45)
--- NOTE | 2020-08-23 15:20 | P.OP_ITS ---
Procedure Note - Detailed Date of procedure: 08/23/20 Pre-op diagnosis: Left hip fracture Post-op diagnosis: same Procedure performed: Left hip pinning Description of procedure: Indications: 75-year-old man fall onto left hip. Left hip femoral neck fracture. Patient and power of civil attorney discussed treatment options with surgery and non operative treatment including risks and benefits. They desire operative treatment. Implants used: [employer] 6.5 millimeter cannulated screw x3 What was done: Informed consent signed. Extremity marked in preoperative holding area. Patient received intravenous antibiotics. Brought to operating room and underwent general anesthetic by the Anesthesia Team. Positioned supine on the fracture table. Left leg placed into longitudinal traction. Right leg extended out of field. Image intensification brought in and confirmed reduction of fracture. Left hip prepped and draped in usual sterile surgical fashion using ChloraPrep skin solution. Image intensification used to guide the starting position and a longitudinal incision made with 10 blade knife over the lateral proximal femur. Blunt dissection carried down to the lateral femur. Bleeding controlled with electrocautery. First guide pin placed in the inferior center position of the femoral neck and head. Confirmed with image intensification. Two subsequent pins placed superior and anterior and superior and posterior to the 1st pin to create an inverted triangle type pattern. Pins confirmed with image intensification. Length of screw measured, reaming performed. Appropriate size screw placed with good compression and fixation noted for all 3 pins. Guide pins removed. Final image intensification confirmed reduction of fracture and placement of hardware with threads past the fracture line and no protrusion of the hip joint. Wound thoroughly irrigated with antibiotic solution. Fascia repaired with 2 0 Vicryl interrupted sutures. Subcutaneous tissue repaired with 3 0 Monocryl interrupted suture. Skin approximated with 3 0 Monocryl running suture. Sterile dressing applied. Patient awoken from anesthesia, extubated and returned to recovery room in stable condition. All sponge needle and instrument counts correct at the end of the case. Implants: Biomet 6.5 mm partially-threaded cannulated screw x3 Anesthesia: GLMA Surgeon: John Funk MD Arcade Game Technician: 1st secretary administrative assistant Estimated blood loss (mL): 50 Drains: No Packing: No Pathology: none sent Complications: None Condition: stable Disposition: PACU
[2020-08-23] MEDS: KCL 20 MEQ/D5/0.45% SOD CHL 1,000 ML 80 ML IV CONT (17:58)
[2020-08-23] MEDS: IBUPROFEN IV 800 MG/200 ML 800 MG/200 ML BAG 400 MG IVPB (17:59)
[2020-08-24] VITALS (7 sets, daily range): BP systolic 97–145; BP diastolic 60–86; PULSE 50–80; RESP 18–20; TEMP 36.4–37.5; O2SAT 94–99
[2020-08-24] MEDS: IBUPROFEN IV 800 MG/200 ML 800 MG/200 ML BAG 400 MG IVPB ×2 (00:34→09:05)
[2020-08-24 06:18] LABS: Hematocrit 39.2 % (42.0-52.0); Hemoglobin 12.6 g/dL (14.0-18.0); Mean Corpuscular HGB Conc 32.1 g/dl (32-36); Mean Corpuscular Hemoglobin 28.4 pg (26-34); Mean Corpuscular Volume 88.3 fl (80-100); Mean Platelet Volume 9.8 fl (7.4-10.4); Platelet Count Result 170 k/mm3 (150-375); Red Blood Count 4.44 M/mm3 (4.6-6.20); Red Cell Distribution Width 12.9 % (11.5-14.5); White Blood Count 8.3 K/mm3 (4.5-10.0)
[2020-08-24 06:34] LABS: Anion Gap 3 mmol/L (8-16); Blood Urea Nitrogen 11 mg/dL (9-20); Calcium 8.5 mg/dL (8.4-10.2); Carbon Dioxide 29 mmol/L (22-30); Chloride 105 mmol/L (98-107); Estimated CRCL calculation 98 ml/min; Estimated Glomerular Filt Rate > 60; Glucose 136 mg/dL (75-110); Potassium 4.1 mmol/L (3.4-5.0); Sodium 137 mmol/L (137-145)
--- NOTE | 2020-08-24 08:25 | PM.PNORT ---
Progress Note: A&P Assessment and Plan (1) Closed displaced fracture of left femoral neck: Code(s): S72.002A - Fracture of unspecified part of neck of left femur, initial encounter for closed fracture Status: Acute Assessment and Plan: POD #1: Left hip pinning PT/OT. WBAT. Walker. HIGH FALL RISk. Out of bed to chair. Ice lateral hip. Monitor dressing. Change tomorrow. Pain control. DVT prophylaxis. SCDs. Incentive Spirometry. Subjective Subjective Date/Time Seen: 08/24/20 08:25 POD #1: Left hip pinning No complaints this morning. Alert. Awaiting transfer to bed for clear liquid breakfast. PT/OT and nursing at bedside. Review of Systems Review of Systems: All systems reviewed & are unremarkable except as noted in HPI and below ROS unobtainable: Yes unobtainable due to mental status (Alzheimer disease ) Constitutional: Constitutional: Reports no additional constitutional complaints Exam Const: General: comfortable and no acute distress Resp: Effort & Inspection: normal respiratory effort Cardio: Rate: regular rate Rhythm: regular rhythm GI: Inspection: non-distended GI Palp: Yes Soft to palpation, No Tenderness to palpation present (GI) and No Guarding due to palpation present (GI) Skin: General skin exam: normal color Wounds: wounds noted (wound c/d/i ) Neuro: Cognition (Neuro): abnormal cognition (baseline ) Extrem: Left lower extremity: hip/thigh Details: tenderness (mild ) Location: of the hip Location: laterally, abnormal ROM (limited due to recent fracture ) and other (incision c/d/i ); no ecchymosis, no deformity and no unusual warmth, knee Details: normal ROM; no tenderness and no swelling, lower leg Details: normal to inspection; no tenderness, ankle Details: normal to inspection, no edema and normal ROM; no swelling and foot Details: normal capillary refill, vascular exam Details: dorsalis pedis pulse present and normal capillary refill and motor-sensory exam two point discrimination normal and light-touch normal Objective Data Vital Signs Vital Signs: Vital Signs - 24 hr 08/23/20 13:45 08/23/20 15:17 08/23/20 15:30 Temperature 37.2 C 37.3 C Pulse Rate 71 83 69 Respiratory Rate 18 20 20 Blood Pressure 156/90 H 149/68 H 136/67 Pulse Oximetry 100 100 98 08/23/20 15:45 08/23/20 16:00 08/23/20 16:15 Temperature Pulse Rate 71 77 71 Respiratory Rate 18 24 H 18 Blood Pressure 121/72 140/90 144/85 H Pulse Oximetry 95 92 94 08/23/20 16:30 08/23/20 16:45 08/23/20 17:00 Temperature Pulse Rate 69 70 71 Respiratory Rate 18 12 16 Blood Pressure 128/74 150/87 H 131/96 H Pulse Oximetry 92 93 94 08/23/20 17:30 08/23/20 18:24 08/23/20 20:00 Temperature Pulse Rate 75 65 Respiratory Rate 14 18 Blood Pressure 136/82 118/73 Pulse Oximetry 96 95 96 08/23/20 20:36 08/23/20 22:09 08/24/20 00:00 Temperature 36.6 C 36.6 C Pulse Rate 63 54 L Respiratory Rate 20 18 Blood Pressure 129/77 97/60 L Pulse Oximetry 96 97 97 08/24/20 04:00 08/24/20 06:24 08/24/20 08:00 Temperature 36.4 C L 36.6 C 36.4 C Pulse Rate 50 L 56 L 53 L Respiratory Rate 20 20 20 Blood Pressure 135/86 132/81 127/86 Pulse Oximetry 98 97 96 Intake/Output Intake/Output: Intake & Output 08/21/20 08/22/20 08/23/20 08/24/20 23:59 23:59 23:59 23:59 Intake Total 750 370 Output Total 670 1400 Balance 80 -1030 Meds/Results Medications: Active Medications Generic Name Dose Route Start Last Admin Trade Name Freq PRN Reason Stop Dose Admin Docusate Sodium 100 mg 08/23/20 17:00 08/23/20 18:11 Docusate Sodium 100 Mg Capsule PO Not Given BID CLAUDY Fentanyl Citrate 25 mcg 08/23/20 03:23 08/23/20 11:08 Fentanyl Citrate Inj (*Crx) 100 Mcg/2 Ml Vial IV PUSH 25 mcg Q4H PRN Administration Pain Rated 7-10 Fondaparinux 2.5 mg 08/24/20 09:00 Fondaparinux Sodium 2.5 Mg/0.5 Ml Syringe SUB-Q DAILY CLAUDY Potassium Chloride/Dextrose/Sod Cl
--- NOTE | 2020-08-24 08:54 | WPDANESPN ---
Anes - Prog Note Post-Op Date/Time: 08/24/20 08:54 Cardiovascular status: normal Respiratory status: normal Airway patency: baseline Mental status: baseline Post-Op hydration status: normal Vital Signs: Last Vital Signs Temp 36.4 C 08/24/20 08:00 Pulse 53 L 08/24/20 08:00 Resp 20 08/24/20 08:00 BP 127/86 08/24/20 08:00 Pulse Ox 96 08/24/20 08:00 Pain Score (VAS): 0 I/O: Intake & Output 08/23/20 08/24/20 08/24/20 23:59 07:59 15:59 Intake Total 600 370 Output Total 170 1400 Balance 430 -1030 Laboratory Tests 08/24/20 06:06 08/24/20 06:06 08/24/20 08/24/20 06:06 06:06 WBC 8.3 RBC 4.44 L Hgb 12.6 L Hct 39.2 L MCV 88.3 MCH 28.4 MCHC 32.1 RDW 12.9 Plt Count 170 MPV 9.8 Sodium 137 Potassium 4.1 Chloride 105 Carbon Dioxide 29 Anion Gap 3 L BUN 11 Creatinine 0.70 Estim Creat Clear Calc 98 Estimated GFR > 60 Glucose 136 H Calcium 8.5 Post-procedural complaints: none Patient Feedback: Patient satisfied with anesthetic care.
[2020-08-24] MEDS: FONDAPARINUX SODIUM 2.5 MG/0.5 ML SYRINGE SUB-Q (09:00)
--- NOTE | 2020-08-24 10:31 | PM.IMPN ---
Progress Note: A&P Assessment and Plan (1) Closed displaced fracture of left femoral neck: Code(s): S72.002A - Fracture of unspecified part of neck of left femur, initial encounter for closed fracture Status: Acute Assessment and Plan: 08/24/20 10:31 Ortho has been consulted. Further recommendations per Ortho. Continue with IV fluids in the patient is NPO at this time. Continue with pain medications as needed. 08/23/20 11:45 patient is 75-year-old male resident of [facility] patient was found in the corridor after he had fell and had difficulty getting up patient was seen at the [place] emergency depart and x-ray of the hip showed left hip fracture, unfortunately patient is poor historian nonverbal unable to provide any review of symptoms or history, patient was seen by orthopedic surgeon and discuss with family recommending surgical correction of the hip to help improve patient future ambulation, family has agreedvand patient taken to OR for the surgery, will follow-up and work with the patient for physical therapy and further recommendation to follow. 08/24 today patient is s/o ORIF left hip on 08/23/20, today patient is more alert but not communicative, patient is seen by his orthopedic surgeon recommending physical therapy, out of bed on the chair, dressing, will continue to monitor the patient as his symptoms progress further recommendation to follow. (2) Parkinson disease: Code(s): G20 - Parkinson's disease Status: Chronic Assessment and Plan: The patient is NPO at this time for possible surgery his carbidopa levodopa but is on hold at this time. In the event that the patient does not go to surgery please restart his home medications. (3) BPH (benign prostatic hyperplasia): Code(s): N40.0 - Benign prostatic hyperplasia without lower urinary tract symptoms Status: Chronic Assessment and Plan: Patient's and on tamsulosin and he is npo at this point. (4) Dementia: Qualifiers: Alzheimer's disease onset: unspecified onset Dementia behavioral disturbance: with behavioral disturbance Dementia type: Alzheimer's Qualified Code(s): G30.9 - Alzheimer's disease, unspecified; F02.81 - Dementia in other diseases classified elsewhere with behavioral disturbance Code(s): F03.90 - Unspecified dementia without behavioral disturbance Status: Chronic Assessment and Plan: Patient is on sertraline. But he is NPO at this time. Subjective Date/time seen: 08/24/20 10:31 Ortho has been consulted. Further recommendations per Ortho. Continue with IV fluids in the patient is NPO at this time. Continue with pain medications as needed. 08/23/20 11:45 patient is 75-year-old male resident of [facility] patient was found in the corridor after he had fell and had difficulty getting up patient was seen at the [place] emergency [facility] and x-ray of the hip showed left hip fracture, unfortunately patient is poor historian nonverbal unable to provide any review of symptoms or history, patient was seen by orthopedic surgeon and discuss with family recommending surgical correction of the hip to help improve patient future ambulation, family has agreedvand patient taken to OR for the surgery, will follow-up and work with the patient for physical therapy and further recommendation to follow. 08/24 today patient is s/o ORIF left hip on 08/23/20, today patient is more alert but not communicative, patient is seen by his orthopedic surgeon recommending physical therapy, out of bed on the chair, dressing, will continue to monitor the patient as his symptoms progress further recommendation to follow. Review of Systems Review of Systems: ROS unobtainable: Yes unobtainable due to medical condition Exam Narrative: Exam Narrative: Elderly frail Patient is comfortable, NAD HEENT: eyes are clear and none icteric LUNGS:CTA HEART: RR S1S2 ABD: BS+, Soft and nontender Lower extremities: n
[2020-08-24] MEDS: oxyCODONE HCL (*CRX) 5 MG TAB IR PO (13:32)
[2020-08-25] VITALS: BP 138/79; PULSE 70; RESP 20; TEMP 36.4; O2SAT 94
[2020-08-25 06:00] VITALS: BP 150/80; PULSE 75; RESP 22; TEMP 37.4; O2SAT 95
[2020-08-25 06:28] LABS: Hematocrit 37.1 % (42.0-52.0); Hemoglobin 12.2 g/dL (14.0-18.0); Mean Corpuscular HGB Conc 32.9 g/dl (32-36); Mean Corpuscular Hemoglobin 28.8 pg (26-34); Mean Corpuscular Volume 87.5 fl (80-100); Mean Platelet Volume 9.9 fl (7.4-10.4); Platelet Count Result 183 k/mm3 (150-375); Red Blood Count 4.24 M/mm3 (4.6-6.20); Red Cell Distribution Width 12.9 % (11.5-14.5); White Blood Count 7.1 K/mm3 (4.5-10.0)
[2020-08-25 06:43] LABS: Anion Gap 5 mmol/L (8-16); Blood Urea Nitrogen 11 mg/dL (9-20); Calcium 8.4 mg/dL (8.4-10.2); Carbon Dioxide 29 mmol/L (22-30); Chloride 103 mmol/L (98-107); Estimated CRCL calculation 87 ml/min; Estimated Glomerular Filt Rate > 60; Glucose 96 mg/dL (75-110); Potassium 3.5 mmol/L (3.4-5.0); Sodium 137 mmol/L (137-145)
[2020-08-25] MEDS: FONDAPARINUX SODIUM 2.5 MG/0.5 ML SYRINGE SUB-Q (08:01)
[2020-08-25] MEDS: oxyCODONE HCL (*CRX) 5 MG TAB IR PO (08:08)
--- NOTE | 2020-08-25 10:51 | PM.IMPN ---
Progress Note: A&P Assessment and Plan (1) Closed displaced fracture of left femoral neck: Code(s): S72.002A - Fracture of unspecified part of neck of left femur, initial encounter for closed fracture Status: Acute Assessment and Plan: 08/25/20 10:51 Ortho has been consulted. Further recommendations per Ortho. Continue with IV fluids in the patient is NPO at this time. Continue with pain medications as needed. 08/23/20 11:45 patient is 75-year-old male resident of skilled nursing patient was found in the corridor after he had fell and had difficulty getting up patient was seen at the [facility] and x-ray of the hip showed left hip fracture, unfortunately patient is poor historian nonverbal unable to provide any review of symptoms or history, patient was seen by orthopedic surgeon and discuss with family recommending surgical correction of the hip to help improve patient future ambulation, family has agreedvand patient taken to OR for the surgery, will follow-up and work with the patient for physical therapy and further recommendation to follow. 08/24 today patient is s/p ORIF left hip on 08/23/20, today patient is more alert but not communicative, patient is seen by his orthopedic surgeon recommending physical therapy, out of bed on the chair, dressing, will continue to monitor the patient as his symptoms progress further recommendation to follow. 08/25 patient is s/p ORIF left hip on 08/23/20, today patient is more alert sitting in the chair, I saw him working with physical therapy requiring 2 person assist, patient will require inpatient gentle therapy and patient will benefit going to SNF pending insurance authorization, patient will continue to work with physical therapy patient be seen by his surgeon and further recommendation to follow. (2) Parkinson disease: Code(s): G20 - Parkinson's disease Status: Chronic Assessment and Plan: The patient is NPO at this time for possible surgery his carbidopa levodopa but is on hold at this time. In the event that the patient does not go to surgery please restart his home medications. (3) BPH (benign prostatic hyperplasia): Code(s): N40.0 - Benign prostatic hyperplasia without lower urinary tract symptoms Status: Chronic Assessment and Plan: Patient's and on tamsulosin and he is npo at this point. (4) Dementia: Qualifiers: Alzheimer's disease onset: unspecified onset Dementia behavioral disturbance: with behavioral disturbance Dementia type: Alzheimer's Qualified Code(s): G30.9 - Alzheimer's disease, unspecified; F02.81 - Dementia in other diseases classified elsewhere with behavioral disturbance Code(s): F03.90 - Unspecified dementia without behavioral disturbance Status: Chronic Assessment and Plan: Patient is on sertraline. But he is NPO at this time. Subjective Date/time seen: 08/25/20 10:51 Ortho has been consulted. Further recommendations per Ortho. Continue with IV fluids in the patient is NPO at this time. Continue with pain medications as needed. 08/23/20 11:45 patient is 75-year-old male resident of skilled nursing patient was found in the corridor after he had fell and had difficulty getting up patient was seen at the [facility] and x-ray of the hip showed left hip fracture, unfortunately patient is poor historian nonverbal unable to provide any review of symptoms or history, patient was seen by orthopedic surgeon and discuss with family recommending surgical correction of the hip to help improve patient future ambulation, family has agreedvand patient taken to OR for the surgery, will follow-up and work with the patient for physical therapy and further recommendation to follow. 08/24 today patient is s/p ORIF left hip on 08/23/20, today patient is more alert but not communicative, patient is seen by his orthopedic surgeon recommending physical therapy, out of bed on the chair, dress
[2020-08-25 14:00] VITALS: BP 125/87; PULSE 102; RESP 18; TEMP 36.4; O2SAT 91; BMI 10.0
[2020-08-25 19:15] LABS: SARS-CoV-2 RNA PCR Negative
[2020-08-25 21:36] VITALS: BP 138/85; PULSE 72; RESP 20; TEMP 37.4; O2SAT 95
[2020-08-26 05:52] LABS: Hematocrit 36.3 % (42.0-52.0); Hemoglobin 12.1 g/dL (14.0-18.0); Mean Corpuscular HGB Conc 33.3 g/dl (32-36); Mean Corpuscular Hemoglobin 29.3 pg (26-34); Mean Corpuscular Volume 87.9 fl (80-100); Mean Platelet Volume 9.5 fl (7.4-10.4); Platelet Count Result 190 k/mm3 (150-375); Red Blood Count 4.13 M/mm3 (4.6-6.20); Red Cell Distribution Width 12.8 % (11.5-14.5); White Blood Count 6.7 K/mm3 (4.5-10.0)
[2020-08-26 06:00] VITALS: BP 134/86; PULSE 86; RESP 16; TEMP 36.6; O2SAT 99
[2020-08-26 06:38] LABS: Anion Gap 5 mmol/L (8-16); Blood Urea Nitrogen 12 mg/dL (9-20); Calcium 8.7 mg/dL (8.4-10.2); Carbon Dioxide 25 mmol/L (22-30); Chloride 105 mmol/L (98-107); Estimated CRCL calculation 98 ml/min; Estimated Glomerular Filt Rate > 60; Glucose 101 mg/dL (75-110); Potassium 3.5 mmol/L (3.4-5.0); Sodium 135 mmol/L (137-145)
[2020-08-26] MEDS: FONDAPARINUX SODIUM 2.5 MG/0.5 ML SYRINGE SUB-Q (08:25)
[2020-08-26] MEDS: DOCUSATE SODIUM 100 MG CAPSULE PO ×2 (08:25→16:38)
--- NOTE | 2020-08-26 10:38 | PM.IMPN ---
Progress Note: A&P Assessment and Plan (1) Closed displaced fracture of left femoral neck: Code(s): S72.002A - Fracture of unspecified part of neck of left femur, initial encounter for closed fracture Status: Acute Assessment and Plan: 08/26/20 10:38 Ortho was been consulted. Further recommendations per Ortho. Continue with IV fluids in the patient is NPO at this time. Continue with pain medications as needed. 08/23/20 11:45 patient is 75-year-old male resident of halfway patient was found in the corridor after he had fell and had difficulty getting up patient was seen at the [facility] and x-ray of the hip showed left hip fracture, unfortunately patient is poor historian nonverbal unable to provide any review of symptoms or history, patient was seen by orthopedic surgeon and discuss with family recommending surgical correction of the hip to help improve patient future ambulation, family has agreedvand patient taken to OR for the surgery, will follow-up and work with the patient for physical therapy and further recommendation to follow. 08/24 today patient is s/p ORIF left hip on 08/23/20, today patient is more alert but not communicative, patient is seen by his orthopedic surgeon recommending physical therapy, out of bed on the chair, dressing, will continue to monitor the patient as his symptoms progress further recommendation to follow. 08/25 patient is s/p ORIF left hip on 08/23/20, today patient is more alert sitting in the chair, I saw him working with physical therapy requiring 2 person assist, patient will require inpatient gentle therapy and patient will benefit going to SNF pending insurance authorization, patient will continue to work with physical therapy patient be seen by his surgeon and further recommendation to follow. 08/26 patient is s/p ORIF left hip on 08/23/20, today patient is sitting in the chair appears sad and nonverbal, I saw him working with physical therapy, was able stand up with minimal assist, patient will require inpatient gentle therapy and patient will benefit going to SNF pending insurance authorization, patient will continue to work with physical therapy patient will be seen by his surgeon and further recommendation to follow. (2) Parkinson disease: Code(s): G20 - Parkinson's disease Status: Chronic Assessment and Plan: The patient is NPO at this time for possible surgery his carbidopa levodopa but is on hold at this time. In the event that the patient does not go to surgery please restart his home medications. (3) BPH (benign prostatic hyperplasia): Code(s): N40.0 - Benign prostatic hyperplasia without lower urinary tract symptoms Status: Chronic Assessment and Plan: Patient's and on tamsulosin and he is npo at this point. (4) Dementia: Qualifiers: Alzheimer's disease onset: unspecified onset Dementia behavioral disturbance: with behavioral disturbance Dementia type: Alzheimer's Qualified Code(s): G30.9 - Alzheimer's disease, unspecified; F02.81 - Dementia in other diseases classified elsewhere with behavioral disturbance Code(s): F03.90 - Unspecified dementia without behavioral disturbance Status: Chronic Assessment and Plan: Patient is on sertraline. But he is NPO at this time. Subjective Date/time seen: 08/26/20 10:38 Ortho was been consulted. Further recommendations per Ortho. Continue with IV fluids in the patient is NPO at this time. Continue with pain medications as needed. 08/23/20 11:45 patient is 75-year-old male resident of halfway patient was found in the corridor after he had fell and had difficulty getting up patient was seen at the [facility] and x-ray of the hip showed left hip fracture, unfortunately patient is poor historian nonverbal unable to provide any review of symptoms or history, patient was seen by orthopedic surgeon and discuss with family recommending matthew
[2020-08-26 14:00] VITALS: BP 118/93; PULSE 89; RESP 16; TEMP 36.1; O2SAT 97
[2020-08-26] MEDS: oxyCODONE HCL (*CRX) 5 MG TAB IR PO (14:14)
[2020-08-26 21:33] VITALS: BP 145/93; PULSE 56; RESP 18; TEMP 37.3; O2SAT 98
[2020-08-27 05:41] VITALS: BP 147/79; PULSE 53; RESP 18; TEMP 37.2; O2SAT 94
[2020-08-27 05:55] LABS: Hematocrit 36.5 % (42.0-52.0); Hemoglobin 12.2 g/dL (14.0-18.0); Mean Corpuscular HGB Conc 33.4 g/dl (32-36); Mean Corpuscular Volume 86.7 fl (80-100); Mean Platelet Volume 9.6 fl (7.4-10.4); Platelet Count Result 196 k/mm3 (150-375); Red Blood Count 4.21 M/mm3 (4.6-6.20); Red Cell Distribution Width 12.7 % (11.5-14.5); White Blood Count 7.2 K/mm3 (4.5-10.0)
[2020-08-27 06:08] LABS: Anion Gap 5 mmol/L (8-16); Blood Urea Nitrogen 12 mg/dL (9-20); Calcium 8.8 mg/dL (8.4-10.2); Carbon Dioxide 25 mmol/L (22-30); Chloride 104 mmol/L (98-107); Estimated CRCL calculation 98 ml/min; Estimated Glomerular Filt Rate > 60; Glucose 101 mg/dL (75-110); Potassium 3.6 mmol/L (3.4-5.0); Sodium 134 mmol/L (137-145)
[2020-08-27] MEDS: DOCUSATE SODIUM 100 MG CAPSULE PO (08:36)
[2020-08-27] MEDS: FONDAPARINUX SODIUM 2.5 MG/0.5 ML SYRINGE SUB-Q (08:38)
[2020-08-27] MEDS: oxyCODONE HCL (*CRX) 5 MG TAB IR PO (08:53)
--- NOTE | 2020-08-27 13:59 | PM.DS ---
DS: Admitting Diagnosis Admitting Diagnosis Admitting Diagnosis: Fall DS: Discharge Diagnosis Discharge Diagnosis (1) Closed displaced fracture of left femoral neck: Code(s): S72.002A - Fracture of unspecified part of neck of left femur, initial encounter for closed fracture Status: Acute Assessment and Plan: 08/26/20 10:38 Ortho was been consulted. Further recommendations per Ortho. Continue with IV fluids in the patient is NPO at this time. Continue with pain medications as needed. 08/23/20 11:45 patient is 75-year-old male resident of [facility] patient was found in the corridor after he had fell and had difficulty getting up patient was seen at the [facility] and x-ray of the hip showed left hip fracture, unfortunately patient is poor historian nonverbal unable to provide any review of symptoms or history, patient was seen by orthopedic surgeon and discuss with family recommending surgical correction of the hip to help improve patient future ambulation, family has agreedvand patient taken to OR for the surgery, will follow-up and work with the patient for physical therapy and further recommendation to follow. 08/24 today patient is s/p ORIF left hip on 08/23/20, today patient is more alert but not communicative, patient is seen by his orthopedic surgeon recommending physical therapy, out of bed on the chair, dressing, will continue to monitor the patient as his symptoms progress further recommendation to follow. 08/25 patient is s/p ORIF left hip on 08/23/20, today patient is more alert sitting in the chair, I saw him working with physical therapy requiring 2 person assist, patient will require inpatient gentle therapy and patient will benefit going to SNF pending insurance authorization, patient will continue to work with physical therapy patient be seen by his surgeon and further recommendation to follow. 08/26 patient is s/p ORIF left hip on 08/23/20, today patient is sitting in the chair appears sad and nonverbal, I saw him working with physical therapy, was able stand up with minimal assist, patient will require inpatient gentle therapy and patient will benefit going to SNF pending insurance authorization, patient will continue to work with physical therapy patient will be seen by his surgeon and further recommendation to follow. (2) Parkinson disease: Code(s): G20 - Parkinson's disease Status: Chronic Assessment and Plan: The patient is NPO at this time for possible surgery his carbidopa levodopa but is on hold at this time. In the event that the patient does not go to surgery please restart his home medications. (3) BPH (benign prostatic hyperplasia): Code(s): N40.0 - Benign prostatic hyperplasia without lower urinary tract symptoms Status: Chronic Assessment and Plan: Patient's and on tamsulosin and he is npo at this point. (4) Dementia: Qualifiers: Alzheimer's disease onset: unspecified onset Dementia behavioral disturbance: with behavioral disturbance Dementia type: Alzheimer's Qualified Code(s): G30.9 - Alzheimer's disease, unspecified; F02.81 - Dementia in other diseases classified elsewhere with behavioral disturbance Code(s): F03.90 - Unspecified dementia without behavioral disturbance Status: Chronic Assessment and Plan: Patient is on sertraline. But he is NPO at this time. DS: Summary Hospital Course Reason for hospitalization: this is a 75-year-old male patient who resides at [facility] in [facility]. The patient has a past medical history of Alzheimer's dementia and Parkinson's. The patient was brought to the emergency room after an unwitnessed fall. The patient is walking the hallway when he was not supposed to be any fell. He has put to wheelchair and then into his bed. The patient reportedly had no pain. The patient is nonverbal and is not able answer questions for me. The patient was orientated
[2020-08-27 14:12] VITALS: BP 126/84; PULSE 72; RESP 18; TEMP 36.3; O2SAT 97
--- NOTE | 2020-08-27 16:02 | PM.PNORT ---
Progress Note: A&P Assessment and Plan (1) Closed displaced fracture of left femoral neck: Code(s): S72.002A - Fracture of unspecified part of neck of left femur, initial encounter for closed fracture Status: Acute Assessment and Plan: POD #4: Left hip pinning PT/OT. WBAT. Walker. HIGH FALL RISk. Out of bed to chair. Ice lateral hip. Monitor dressing. Daily gauze dressing. Pain control. DVT prophylaxis x28 days total. SCDs. Incentive Spirometry. Subjective Subjective Date/Time Seen: 08/27/20 16:02 Awaiting discharge. No complaints. Review of Systems Review of Systems: All systems reviewed & are unremarkable except as noted in HPI and below ROS unobtainable: Yes unobtainable due to mental status (Alzheimer disease ) Constitutional: Constitutional: Reports no additional constitutional complaints Exam Const: General: comfortable and no acute distress Resp: Effort & Inspection: normal respiratory effort Cardio: Rate: regular rate Rhythm: regular rhythm GI: Inspection: non-distended GI Palp: Yes Soft to palpation, No Tenderness to palpation present (GI) and No Guarding due to palpation present (GI) Skin: General skin exam: normal color Wounds: wounds noted (wound c/d/i ) Neuro: Cognition (Neuro): abnormal cognition (baseline ) Extrem: Left lower extremity: hip/thigh, knee, lower leg, ankle and foot Objective Data Vital Signs Vital Signs: Vital Signs - 24 hr 08/26/20 21:33 08/27/20 05:41 08/27/20 14:12 Temperature 37.3 C 37.2 C 36.3 C L Pulse Rate 56 L 53 L 72 Respiratory Rate 18 18 18 Blood Pressure 145/93 H 147/79 H 126/84 Pulse Oximetry 98 94 97 Intake/Output Intake/Output: Intake & Output 08/24/20 08/25/20 08/26/20 08/27/20 23:59 23:59 23:59 23:59 Intake Total 1640 740 730 240 Output Total 1400 Balance 240 740 730 240 Meds/Results Medications: Active Medications Generic Name Dose Route Start Last Admin Trade Name Freq PRN Reason Stop Dose Admin Docusate Sodium 100 mg 08/23/20 17:00 08/27/20 08:36 Docusate Sodium 100 Mg Capsule PO 100 mg BID CLAUDY Administration Fentanyl Citrate 25 mcg 08/23/20 03:23 08/23/20 11:08 Fentanyl Citrate Inj (*Crx) 100 Mcg/2 Ml Vial IV PUSH 25 mcg Q4H PRN Administration Pain Rated 7-10 Fondaparinux 2.5 mg 08/24/20 09:00 08/27/20 08:38 Fondaparinux Sodium 2.5 Mg/0.5 Ml Syringe SUB-Q 2.5 mg DAILY CLAUDY Administration Magnesium Hydroxide 30 ml 08/23/20 16:39 Magnesium Hydroxide Susp 30 Ml Udc PO BID PRN Constipation Oxycodone HCl 5 mg 08/23/20 16:39 08/27/20 08:53 Oxycodone Hcl (*Crx) 5 Mg Tab Ir PO 5 mg Q4H PRN Administration Pain Rated 4-6 Radiology Results: ITS Impressions Hip/Pelvis X-Ray 08/23/20 07:42 IMPRESSION: 1. Transcervical fracture of left femoral neck. 2. Moderate osteoarthritis of the hips. Intraoperative X-Ray 08/23/20 15:29 IMPRESSION: 1. Essentially anatomic alignment post open reduction internal fixation of a transcervical fracture of the proximal left femur. Labs Labs: Laboratory Results - last 24 hr 08/27/20 08/27/20 05:49 05:49 WBC 7.2 RBC 4.21 L Hgb 12.2 L Hct 36.5 L MCV 86.7 MCH 29.0 MCHC 33.4 RDW 12.7 Plt Count 196 MPV 9.6 Sodium 134 L Potassium 3.6 Chloride 104 Carbon Dioxide 25 Anion Gap 5 L BUN 12 Creatinine 0.70 Estim Creat Clear Calc 98 Estimated GFR > 60 Glucose 101 Calcium 8.8 Quality VTE Prophylaxis VTE prophylaxis: mechanical ordered
--- NOTE | 2020-08-27 17:39 | PC.NURSE ---
1435 report called to rodolfo at [facility] emergency department in [place].
--- NOTE | 2020-08-27 17:39 | PC.NURSE ---
notified of pt leaving for [facility]
== END 2020-08-27 17:15 | DRG 481 ==
PROVIDERS: Nurse Practitioner; Orthopaedic Surgery; Admitting Provider Internal Medicine; PCP Internal Medicine; Visit Provider Family Medicine
PROC: 0QS734Z Reposition Left Upper Femur with Internal Fixation Device, Percutaneous Approach (ICD-10-PCS; principal; 2020-08-23 15:30)
DX: F02.81 Dementia in other diseases classified elsewhere, unspecified severity, with behavioral disturbance (principal); S72.002A Fracture of unspecified part of neck of left femur, initial encounter for closed fracture; I42.9 Cardiomyopathy, unspecified; Z20.822 Contact with and (suspected) exposure to COVID-19; G30.9 Alzheimer's disease, unspecified; G20 Parkinson's disease; I25.10 Atherosclerotic heart disease of native coronary artery without angina pectoris; N40.0 Benign prostatic hyperplasia without lower urinary tract symptoms; E78.5 Hyperlipidemia, unspecified; I71.2 Thoracic aortic aneurysm, without rupture; W19.XXXA Unspecified fall, initial encounter; Z79.899 Other long term (current) drug therapy; Z87.442 Personal history of urinary calculi; Z95.5 Presence of coronary angioplasty implant and graft; Z98.1 Arthrodesis status
CPT/HCPCS: 36415; 73502; 80048; 81001; 83735; 85025; 85027; 97110; 97112; 97161; 97166; 97530; 97535; A9270; C9803; J0131; J0690; J1100; J1652; J1741; J2405; J2704; J3010; J3480; J7042; J7120; U0003; U0005

== ENCOUNTER 2020-09-10 09:16 | Outpatient (CLI) | payer MEDICARE, SELFPAY ==
--- NOTE | ~2020-09-10 | XR_ITS ---
XR knee LT 3V DATE: 09/10/2020 10:14 INDICATION: Fall. Knee pain TECHNIQUE: 3 views COMPARISON: None FINDINGS: Mild suprapatellar knee joint effusion. No fracture, dislocation, periosteal reaction or bone destruction is evident. There is mild to moderate loss of height of the medial compartment joint space. There is chondrocalci nosis at the knee joint, only lateral and to a greater extent medial compartments. IMPRESSION: Mild suprapatellar knee joint effusion , Calcinosis Mild loss of height of medial compartment joint space Reviewed, dictated and finalized at location A.
--- NOTE | ~2020-09-10 | XR_ITS ---
XR hip LT 2V w AP pelvis DATE: 09/10/2020 10:14 INDICATION: Fall. Pain. TECHNIQUE: AP pelvis. AP and lateral views of left hip COMPARISON: 08/23/2020 left hip and AP pelvis FINDINGS: There are 3 pins through the intertrochanteric area and femoral neck, terminating in left f emoral head, providing internal fixation for previously reported transcervical fracture of the left f emoral neck No pelvic fracture or bone destruction. The pubic symphysis and sacroiliac joints are intact. Postoperative change from left inguinal hernia repair. IMPRESSION: Status post left transcervical femoral fracture ORIF Reviewed, dictated and finalized at location A.
--- NOTE | ~2020-09-10 | XR_ITS ---
XR knee RT 3V DATE: 09/10/2020 10:14 INDICATION: Fall. Knee pain. TECHNIQUE: 3 views COMPARISON: None FINDINGS: No fracture, dislocation or joint effusion. . No periosteal reaction or bone destruction. There is mild loss of height of medial joint space. There is chondrocalcinosis at the medial and late ral compartments. IMPRESSION: Chondrocalcinosis Mild loss of height of medial joint space No fracture, dislocation or joint effusion Reviewed, dictated and finalized at location A.
== END 2020-09-10 09:17 | disposition home or self-care (01) ==
LOC: CHSIMG 09:19
PROVIDERS: PCP Internal Medicine; Visit Provider Orthopaedic Surgery
DX: Z47.89 Encounter for other orthopedic aftercare (principal); W19.XXXA Unspecified fall, initial encounter
CPT/HCPCS: 73502; 73562

== ENCOUNTER 2021-04-04 08:50 | Outpatient (NON) | payer MEDICARE, SELFPAY ==
[2021-04-04 09:09] LABS: Basophils Absolute Auto 0.07 K/mm3 (0.00-0.10); Eosinophils Absolute Auto 0.25 K/mm3 (0.02-0.50); Eosinophils Percent Auto 3.6 % (1.0-6.0); Hemoglobin 13.3 g/dL (12.4-15.3); Immature Granulocyte Absolute 0.02 K/mm3 (0.00-0.00); Immature Granulocyte Percent A 0.3 % (0.0-0.0); Lymphocytes Percent Auto 28.7 % (18.0-42.0); Mean Corpuscular HGB Conc 32.4 g/dL (32.0-36.0); Mean Corpuscular Hemoglobin 28.6 pg (27.0-31.0); Mean Corpuscular Volume 88.2 fL (78.0-102.0); Mean Platelet Volume 9.9 fl (8.7-11.0); Monocytes Absolute Auto 0.61 K/mm3 (0.10-0.90); Monocytes Percent Auto 8.8 % (2.0-11.0); Neutrophils Percent Auto 57.6 % (50.0-70.0); Platelet Count Result 230 K/mm3 (150-420); Red Blood Count 4.65 M/mm3 (4.70-6.10); Red Cell Distribution Width 13.7 % (11.6-14.4)
[2021-04-04 09:59] LABS: Alanine Aminotransferase 15 U/L (16-63); Albumin Level 3.1 g/dL (3.4-5.0); Alkaline Phosphatase 79 U/L (46-116); Anion Gap 11 mmol/L (8-16); Aspartate Amino Transferase < 10 U/L (15-37); Bilirubin,Total 0.2 mg/dL (0.00-1.00); Blood Urea Nitrogen 16 mg/dL (7-18); Calcium 8.9 mg/dL (8.5-10.1); Carbon Dioxide 26 mmol/L (21-32); Chloride 103 mmol/L (98-108); Estimated Glomerular Filt Rate > 60; Glucose 91 mg/dL (70-99); NT Pro B Type Natriuretic Pept 89 pg/mL (0-125); Osmolality Calculated 291 mOsm/kg (285-295); Potassium 4.6 mmol/L (3.5-5.1); Sodium 140 mmol/L (136-145); Total Protein 6.8 g/dL (6.4-8.2)
== END 2021-04-04 08:51 | disposition home or self-care (01) ==
LOC: CHSLAB 08:52
PROVIDERS: Visit Provider Internal Medicine
DX: I25.10 Atherosclerotic heart disease of native coronary artery without angina pectoris (principal); I71.2 Thoracic aortic aneurysm, without rupture; I50.9 Heart failure, unspecified
CPT/HCPCS: 36415; 80053; 83880; 85025

== ENCOUNTER 2021-09-03 06:32 | Outpatient (NON) | payer MEDICARE, SELFPAY ==
[2021-09-03 07:04] LABS: Basophils Absolute Auto 0.06 K/mm3 (0.00-0.10); Eosinophils Absolute Auto 0.28 K/mm3 (0.02-0.50); Eosinophils Percent Auto 4.5 % (1.0-6.0); Hematocrit 39.2 % (37.0-46.0); Hemoglobin 12.5 g/dL (12.4-15.3); Immature Granulocyte Absolute 0.02 K/mm3 (0.00-0.00); Immature Granulocyte Percent A 0.3 % (0.0-0.0); Lymphocytes Absolute Auto 1.98 K/mm3 (1.10-4.50); Lymphocytes Percent Auto 31.6 % (18.0-42.0); Mean Corpuscular HGB Conc 31.9 g/dL (32.0-36.0); Mean Corpuscular Hemoglobin 28.5 pg (27.0-31.0); Mean Corpuscular Volume 89.5 fL (78.0-102.0); Mean Platelet Volume 10.1 fl (8.7-11.0); Monocytes Absolute Auto 0.52 K/mm3 (0.10-0.90); Monocytes Percent Auto 8.3 % (2.0-11.0); Neutrophils Absolute Auto 3.4 K/mm3 (1.7-7.2); Neutrophils Percent Auto 54.3 % (50.0-70.0); Platelet Count Result 207 K/mm3 (150-420); Red Blood Count 4.38 M/mm3 (4.70-6.10); Red Cell Distribution Width 13.6 % (11.6-14.4); White Blood Count 6.3 K/mm3 (4.8-10.8)
[2021-09-03 07:26] LABS: Alanine Aminotransferase 15 U/L (16-63); Albumin Level 2.8 g/dL (3.4-5.0); Alkaline Phosphatase 74 U/L (46-116); Anion Gap 7 mmol/L (8-16); Aspartate Amino Transferase 10 U/L (15-37); Bilirubin,Total 0.3 mg/dL (0.00-1.00); Blood Urea Nitrogen 14 mg/dL (7-18); Calcium 8.4 mg/dL (8.5-10.1); Carbon Dioxide 26 mmol/L (21-32); Chloride 106 mmol/L (98-108); Cholesterol 197 mg/dL (0-200); Estimated Glomerular Filt Rate > 60; Free T4 Free Thyroxine 0.82 ng/dL (0.76-1.46); Glucose 93 mg/dL (70-99); HDL Direct 33 mg/dL (40-60); LDL Cholesterol Calculated 131 mg/dL (<130); Osmolality Calculated 288 mOsm/kg (285-295); Potassium 3.8 mmol/L (3.5-5.1); Sodium 139 mmol/L (136-145); Thyroid Stimulating Hormone 6.14 uIU/mL (0.36-3.74); Total Protein 6.7 g/dL (6.4-8.2); Triglycerides 167 mg/dL (0-150)
== END 2021-09-03 06:33 | disposition home or self-care (01) ==
LOC: CHSLAB 06:34
PROVIDERS: Visit Provider Internal Medicine
DX: E78.5 Hyperlipidemia, unspecified (principal); R31.9 Hematuria, unspecified; R53.83 Other fatigue
CPT/HCPCS: 36415; 80053; 80061; 84439; 84443; 85025

== ENCOUNTER 2021-10-03 07:02 | Outpatient (NON) | payer MEDICARE, SELFPAY ==
[2021-10-03 07:56] LABS: Basophils Absolute Auto 0.06 K/mm3 (0.00-0.10); Basophils Percent Auto 0.8 % (0.0-1.0); Eosinophils Absolute Auto 0.26 K/mm3 (0.02-0.50); Eosinophils Percent Auto 3.5 % (1.0-6.0); Hematocrit 43.2 % (37.0-46.0); Hemoglobin 13.6 g/dL (12.4-15.3); Immature Granulocyte Absolute 0.02 K/mm3 (0.00-0.00); Immature Granulocyte Percent A 0.3 % (0.0-0.0); Lymphocytes Absolute Auto 2.17 K/mm3 (1.10-4.50); Lymphocytes Percent Auto 29.2 % (18.0-42.0); Mean Corpuscular HGB Conc 31.5 g/dL (32.0-36.0); Mean Corpuscular Hemoglobin 28.5 pg (27.0-31.0); Mean Corpuscular Volume 90.6 fL (78.0-102.0); Monocytes Absolute Auto 0.65 K/mm3 (0.10-0.90); Monocytes Percent Auto 8.7 % (2.0-11.0); Neutrophils Absolute Auto 4.3 K/mm3 (1.7-7.2); Neutrophils Percent Auto 57.5 % (50.0-70.0); Platelet Count Result 246 K/mm3 (150-420); Red Blood Count 4.77 M/mm3 (4.70-6.10); Red Cell Distribution Width 13.6 % (11.6-14.4); White Blood Count 7.4 K/mm3 (4.8-10.8)
[2021-10-03 08:31] LABS: Alanine Aminotransferase 14 U/L (16-63); Albumin Level 3.4 g/dL (3.4-5.0); Alkaline Phosphatase 89 U/L (46-116); Anion Gap 11 mmol/L (8-16); Aspartate Amino Transferase 13 U/L (15-37); Bilirubin,Total 0.3 mg/dL (0.00-1.00); Blood Urea Nitrogen 16 mg/dL (7-18); Carbon Dioxide 28 mmol/L (21-32); Chloride 104 mmol/L (98-108); Cholesterol 245 mg/dL (0-200); Estimated Glomerular Filt Rate > 60; Free T4 Free Thyroxine 0.92 ng/dL (0.76-1.46); Glucose 92 mg/dL (70-99); HDL Direct 37 mg/dL (40-60); LDL Cholesterol Calculated 169 mg/dL (<130); Osmolality Calculated 297 mOsm/kg (285-295); Potassium 4.5 mmol/L (3.5-5.1); Sodium 143 mmol/L (136-145); Total Protein 7.4 g/dL (6.4-8.2); Triglycerides 193 mg/dL (0-150)
[2021-10-03 08:44] LABS: Add Urine Microscopic? YES; Appearance Urine Cloudy (Clear); Bilirubin Urine Negative (Negative); Blood Urine 3+ (Negative); Color Urine Yellow (Yellow); Glucose Urine UA Negative (Negative); Ketones Urine Negative (Negative); Leukocyte Esterase Ur 3+ LEU/UL (Negative); Nitrate Urine Positive (Negative); Protein Urine Trace (Negative); Urobilinogen Urine 0.2 mg/dL (0.2-1.0)
[2021-10-03 08:53] LABS: RBC Urine 21-50 /hpf (0-2)
[2021-10-03 08:54] LABS: Bacteria Urine 3+ /hpf; WBC Urine >75 /hpf (0-3)
== END 2021-10-03 07:03 | disposition home or self-care (01) ==
LOC: CHSLAB 07:07
PROVIDERS: Visit Provider Internal Medicine
DX: R53.82 Chronic fatigue, unspecified (principal); I25.10 Atherosclerotic heart disease of native coronary artery without angina pectoris; I42.0 Dilated cardiomyopathy; E78.5 Hyperlipidemia, unspecified; R82.90 Unspecified abnormal findings in urine
CPT/HCPCS: 36415; 80053; 80061; 81001; 84439; 84443; 85025; 87077; 87086; 87088; 87186

== ENCOUNTER 2021-10-15 06:37 | Outpatient (NON) | payer MEDICARE, SELFPAY ==
[2021-10-15 06:58] LABS: Appearance Urine Clear (Clear); Bilirubin Urine Negative (Negative); Color Urine Dark Yellow (Yellow); Glucose Urine UA Negative (Negative); Ketones Urine Negative (Negative); Leukocyte Esterase Ur Negative (Negative); Nitrate Urine Negative (Negative); Protein Urine Negative (Negative); Specific Grav Ur >= 1.030 (1.010-1.020); Urobilinogen Urine 0.2 mg/dL (0.2-1.0)
[2021-10-15 07:07] LABS: Add Urine Microscopic? YES; Blood Urine Trace-Intact (Negative)
[2021-10-15 07:08] LABS: Bacteria Urine Trace /hpf; Mucus Urine Few /lpf; Squamous Epithelial Cell Urine Rare /hpf (Few); WBC Urine 0-3 /hpf (0-3)
== END 2021-10-15 06:38 | disposition home or self-care (01) ==
PROVIDERS: Visit Provider Internal Medicine
DX: N39.0 Urinary tract infection, site not specified (principal)
CPT/HCPCS: 81001; 87086

== ENCOUNTER 2021-11-28 06:47 | Outpatient (NON) | payer MEDICARE, SELFPAY ==
[2021-11-28 08:29] LABS: Free T4 Free Thyroxine 0.94 ng/dL (0.76-1.46); Thyroid Stimulating Hormone 6.32 uIU/mL (0.36-3.74)
== END 2021-11-28 06:48 | disposition home or self-care (01) ==
LOC: CHSLAB 06:52
PROVIDERS: Visit Provider Internal Medicine
DX: E03.9 Hypothyroidism, unspecified (principal)
CPT/HCPCS: 36415; 84439; 84443; 84481

== ENCOUNTER 2022-01-23 06:31 | Outpatient (NON) | payer MEDICARE, SELFPAY ==
[2022-01-23 07:17] LABS: Free T3 2.03 pg/mL (2.18-3.98); Free T4 Free Thyroxine 0.92 ng/dL (0.76-1.46); Thyroid Stimulating Hormone 7.47 uIU/mL (0.36-3.74)
== END 2022-01-23 06:32 | disposition home or self-care (01) ==
LOC: CHSLAB 06:33
PROVIDERS: Visit Provider Internal Medicine
DX: E03.9 Hypothyroidism, unspecified (principal)
CPT/HCPCS: 36415; 84439; 84443; 84481

== ENCOUNTER 2022-03-25 06:29 | Outpatient (NON) | payer MEDICARE, SELFPAY ==
[2022-03-25 07:29] LABS: Anion Gap 8 mmol/L (8-16); Blood Urea Nitrogen 14 mg/dL (7-18); Carbon Dioxide 29 mmol/L (21-32); Chloride 107 mmol/L (98-108); Estimated Glomerular Filt Rate > 60; Glucose 91 mg/dL (70-99); NT Pro B Type Natriuretic Pept 103 pg/mL (0-125); Osmolality Calculated 298 mOsm/kg (285-295); Potassium 5.1 mmol/L (3.5-5.1); Sodium 144 mmol/L (136-145); Thyroid Stimulating Hormone 2.76 uIU/mL (0.36-3.74)
== END 2022-03-25 06:30 | disposition home or self-care (01) ==
LOC: CHSLAB 06:31
PROVIDERS: Visit Provider Internal Medicine
DX: G20 Parkinson's disease (principal); I25.10 Atherosclerotic heart disease of native coronary artery without angina pectoris; N40.0 Benign prostatic hyperplasia without lower urinary tract symptoms; R91.8 Other nonspecific abnormal finding of lung field; E03.9 Hypothyroidism, unspecified; R06.09 Other forms of dyspnea
CPT/HCPCS: 36415; 80048; 83880; 84443

== ENCOUNTER 2022-03-26 13:00 | Outpatient (CLI) | payer MEDICARE, SELFPAY ==
--- NOTE | ~2022-03-26 | US_ITS ---
EXAMINATION:US venous doppler LE BI INDICATION:Leg edema TECHNIQUE: Multiple grayscale, color flow and Doppler images of the right and left lower extremity de ep venous systems were obtained and reviewed. COMPARISON:No prior studies for comparison. FINDINGS: The common femoral, superficial femoral and popliteal veins demonstrate normal respiratory variation, augmentation and compressibility. Color flow is also seen within the posterior tibial, pe roneal, greater saphenous and profunda veins. IMPRESSION: 1: No lower extremity deep venous thrombosis. Reviewed, dictated and finalized at location A. MASSEUR
== END 2022-03-26 13:01 | disposition home or self-care (01) ==
LOC: CHSIMG 13:02
PROVIDERS: PCP Internal Medicine; Visit Provider Internal Medicine
DX: R60.0 Localized edema (principal)
CPT/HCPCS: 93970

== ENCOUNTER 2022-04-01 06:58 | Outpatient (NON) | payer MEDICARE, SELFPAY ==
[2022-04-01 08:21] LABS: Thyroid Stimulating Hormone 4.56 uIU/mL (0.36-3.74)
== END 2022-04-01 06:59 | disposition home or self-care (01) ==
LOC: CHSLAB 07:00
PROVIDERS: Visit Provider Internal Medicine
DX: E03.9 Hypothyroidism, unspecified (principal)
CPT/HCPCS: 36415; 84439; 84443

== ENCOUNTER 2022-04-29 07:02 | Outpatient (NON) | payer MEDICARE, SELFPAY ==
[2022-05-01 07:55] LABS: Valproic Acid <4.0 mg/L (50.0-100.0)
== END 2022-04-29 07:03 | disposition home or self-care (01) ==
LOC: CHSLAB 07:04
PROVIDERS: Visit Provider Internal Medicine
DX: Z79.899 Other long term (current) drug therapy (principal)
CPT/HCPCS: 36415; 80164

== ENCOUNTER 2022-08-06 01:02 | Day surgery (SDC) | payer MEDICARE, SELFPAY ==
[2022-07-30 13:48] VITALS: BMI 33.0
--- NOTE | 2022-07-30 14:59 | PC.NURSE ---
Report to the Outpatient Waiting Room, entrance under the green pavilion located off [facility], at time _0800_ on date _08/06/22_. Planned Procedure Time: _1000_. Time changes happen often and if your time is changed the preop area will call you the afternoon before. - You and your visitor will be asked to self-screen and do not enter if you have any COVID symptoms. - Only one visitor is requested with a max of two and NO children visitors are allowed at this time. - The patient visitor may be requested to leave or wait in car when not with patient due to distancing restrictions. - A mask is optional within the hospital at this time. Patients may have clear liquids (water, carbonated beverages, clear teas, apple juice) until 3 hours prior to surgery (0700 AM) with a maximum of 20 ounces. - No food from midnight until time of surgery Take the following medications with a SIP of water the morning of surgery: _CARBIDOPA-LEVODOPA, LEVOTHYROXINE, SERTRALINE & TYLENOL IF NEEDED_ DO NOT STOP ANY OF YOUR OTHER PRESCRIPTION MEDICATIONS PRIOR TO SURGERY ?EXCEPT THE FOLLOWING Medications to discontinue per physician ____N/A , Date to take last dose Please no make-up, nail citizen of [place], hairspray, perfume, deodorant, or body powder the day of surgery. No jewelry (including any body piercings) or valuables the day of surgery, leave them at home. Please take a shower or bath the night before, or the morning of, surgery with an antibacterial soap. Wear comfortable, loose fitting clothing. - Jewelry must be removed prior to entering the operating room. Rings and piercings that are not removed may be cut off. - The hospital will not accept responsibility for valuables. - Please leave all valuables, including medications, at home the day of surgery. If you are going home after surgery, a licensed electric lift truck driver must drive you home. - NO public transportation without another adult if you receive anesthesia. - We recommend that an adult stay with you for 24 hours following discharge. - We also recommend that you do not drive, make important decision, drink alcoholic beverages, or take any drugs that were not prescribed by your health care provider for at least 24 hours after your discharge time. Follow any additional instructions given to you from your surgeon. If you or anyone in your household have experienced Covid symptoms in the past week, please notify your surgeon or the nurse liaison at the phone number below for possible testing. Telephone instructions given to & FAXED TO _YADIEL ARIAS_and asked if any additional questions and then verbalized understanding. Patient advised to call surgeon office or pre surgery nurse liaison [phone] if any additional questions.
[2022-08-06] VITALS (8 sets, daily range): BP systolic 119–156; BP diastolic 82–123; PULSE 71–90; RESP 13–20; TEMP 36.2; O2SAT 92–100
--- NOTE | ~2022-08-06 | XR_ITS ---
EXAMINATION: XR teeth 1V DATE: 08/06/2022 11:54 INDICATION: Dental caries. TECHNIQUE: 11 views of the teeth were obtained. COMPARISON: None. FINDINGS: There are carious lesions of multiple teeth. IMPRESSION: 1. Carious lesions of multiple teeth. Reviewed, dictated and finalized at location A.
--- NOTE | 2022-08-06 08:11 | WPDANESEPPF ---
Anes - Initial Pre Proc Eval Procedure: Operation Date: 08/06/22 10:00 Proposed Procedures p Oral Exam Under Anesthesia, Extract Teeth # 3, 4, 5, 7, 8, 9, Possible Additional Teeth Extractions as Needed - Dayton Ochoa DMD Date/Time: 08/06/22 08:11 Surgeon: Dayton Ochoa DMD Pre Op Diagnosis: dental caries Patient Data Age: 77 Gender: M Height: 1.78 m Weight: 104.54 kg Allergies Allergy/AdvReac Type Severity Reaction Status Date / Time No Known Allergies Allergy Verified 08/06/22 09:17 Home Medications Medication Instructions Recorded Confirmed Type carbidopa 25 mg-levodopa 100 mg 2 tablet PO QID PARKINSONS 07/27/20 07/30/22 History disintegrating tablet sertraline 100 mg tablet 150 mg PO DAILY 07/27/20 07/30/22 History tamsulosin 0.4 mg capsule 0.8 mg PO DAILY BPH 07/27/20 07/30/22 History magnesium hydroxide 400 mg/5 mL 30 ml PO BID PRN Constipation #300 08/27/20 07/30/22 Rx oral suspension (Milk of Magnesia) mL acetaminophen 500 mg tablet 500 mg PO Q8H PRN Pain 07/30/22 07/30/22 History aluminum-mag hydroxide-simethicone 15 ml PO Q6H PRN INDGISTION 07/30/22 07/30/22 History 200 mg-200 mg-20 mg/5 mL oral susp levothyroxine 88 mcg tablet 88 mcg DAILY 07/30/22 07/30/22 History sertraline 50 mg tablet 50 mg DAILY 07/30/22 07/30/22 History Patient hx anesthesia problems: none Family hx anesthesia problems: none Results Review: All pre-operative results and documents have been reviewed as part of the pre-operative evaluation. [facility] Past Medical History Medical History Alzheimer disease Aortic aneurysm without rupture BPH (benign prostatic hyperplasia) CAD (coronary artery disease) Cardiomyopathy Dementia Fall from standing Hernia Hyperlipidemia Parkinson disease Renal calculi Thoracic aneurysm without mention of rupture Surgical History Surgical History Hx of cervical spinal arthrodesis Stented coronary artery Family History Family History Father No problems noted. 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 Darling Rod's listed as his spouse. Patient resides at a [facility]. Smoking status: Never smoker Tobacco type: cigarettes Second hand tobacco smoke exposure: No Alcohol intake: unknown Substance use: unknown Living arrangements: [facility] Additional living arrangements comments: [facility] VAL[facility] [phone] Gender identity (if verbalized by the patient): Male Sexual Orientation (if Verbalized by the Patient): Straight or Heterosexual Spiritual care concerns: No Anes - Eval Final PreProcedure Day of Procedure 08/06/22 08:11 Patient weight: obese Heart: regular rate and rhythm Lungs: clear to auscultation Airway: Mallampati scale class II Neurological: alert and oriented Last oral intake: >/= 8 hours ASA classification: IV Emergent: no Anesthetic plan: proceed Anesthesia type and monitoring: general ETT and standard monitoring Results Review: All pre-operative results and documents have been reviewed as part of the pre-operative evaluation. Informed Consent: The patient's anesthetic plan and its attendant risks and benefits were discussed with the patient/family/POA. Questions were solicited and answers provided to the satisfaction of the patient/family/POA.
[2022-08-06] MEDS: LACTATED RINGERS 1,000 ML 30 ML IV CONT ×2 (09:00→12:00)
--- NOTE | 2022-08-06 09:21 | WPDHPUPDATE1 ---
History and Physical Update Update Date/Time: 08/06/22 09:21 History and Physical has been reviewed, including an updated exam of the patient. There are NO changes in the patient's condition. Risks, benefits, and alternatives have been discussed and questions answered. Patient agrees to proceed with procedure.
--- NOTE | 2022-08-06 09:21 | PM.IMHP ---
H&P: HPI History of Present Illness Date/Time: 08/06/22 09:21 Chief Complaint: bad teeth PMFSH Past Medical History Medical History Alzheimer disease Aortic aneurysm without rupture BPH (benign prostatic hyperplasia) CAD (coronary artery disease) Cardiomyopathy Dementia Fall from standing Hernia Hyperlipidemia Parkinson disease Renal calculi Thoracic aneurysm without mention of rupture Surgical History Surgical History Hx of cervical spinal arthrodesis Stented coronary artery Family History Family History Father No problems noted. 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 Darling Rod's listed as his spouse. Patient resides at a longterm. Smoking status: Never smoker Tobacco type: cigarettes Second hand tobacco smoke exposure: No Alcohol intake: unknown Substance use: unknown Living arrangements: longterm Additional living arrangements comments: [facility] [phone] Gender identity (if verbalized by the patient): Male Sexual Orientation (if Verbalized by the Patient): Straight or Heterosexual Spiritual care concerns: No Meds Home Medications and Allergies Home Medications Medication Instructions Recorded Confirmed Type carbidopa 25 mg-levodopa 100 mg 2 tablet PO QID PARKINSONS 07/27/20 07/30/22 History disintegrating tablet sertraline 100 mg tablet 150 mg PO DAILY 07/27/20 07/30/22 History tamsulosin 0.4 mg capsule 0.8 mg PO DAILY BPH 07/27/20 07/30/22 History magnesium hydroxide 400 mg/5 mL 30 ml PO BID PRN Constipation #300 08/27/20 07/30/22 Rx oral suspension (Milk of Magnesia) mL acetaminophen 500 mg tablet 500 mg PO Q8H PRN Pain 07/30/22 07/30/22 History aluminum-mag hydroxide-simethicone 15 ml PO Q6H PRN INDGISTION 07/30/22 07/30/22 History 200 mg-200 mg-20 mg/5 mL oral susp levothyroxine 88 mcg tablet 88 mcg DAILY 07/30/22 07/30/22 History sertraline 50 mg tablet 50 mg DAILY 07/30/22 07/30/22 History Allergies Allergy/AdvReac Type Severity Reaction Status Date / Time No Known Allergies Allergy Verified 08/06/22 09:17 Assessment and Plan Assessment and plan (1) Non-restorable tooth: Code(s): K08.89 - Other specified disorders of teeth and supporting structures Status: Acute Assessment and Plan: exam under anesthesia and extractions as necessary
[2022-08-06] MEDS: ceFAZolin 2 GM/D5W 50 ML 2 GM/50 ML BAG IVPB (10:30)
[2022-08-06] MEDS: LIDOCAINE 2%-EPI (FOR DENTAL BLOCK) 1.7 ML CARTRIDGE INFILTRATE (11:14)
--- NOTE | 2022-08-06 11:18 | P.OP_ITS ---
Procedure Note - Detailed Date of Procedure 08/06/22 Pre-op Diagnosis dental caries Post-op Diagnosis Same Procedure Performed sr 2, 3, 10, 11, 12, 14, 23, 24, 25 ,26 Surgeon Dayton Ochoa, YANIRA Anesthesia General Description of Procedure Patient counter to the operating room under the care of the Anesthesia Service who induced general anesthesia. Patient was draped in usual manner for intraoral surgical procedure. Intraoral radiographs were taken. Oral cavity suctioned free of debris and throat pack placed. Local anesthetic administered. Teeth numbers 2 and 3 were removed after incision and elevation of the buccal flap. Tooth 3. Was section for removal. Wound was thoroughly irrigated packed with Gelfoam and then closed with 4-0 chromic gut suture in continuous fashion. Attention was turned to the left maxilla were an incision was made in a full- thickness flap fluid the buccal in the area of tooth 10. Through 14. Tooth 14. Was sectioned in the remaining teeth numbers 02/05/2012 in 14 within removed using a forceps technique without complication. Second curetted free of debris area) sterile saline. Gelfoam was placed in the socket of tooth 14. The wound was closed using 4-0 chromic gut suture in interrupted fashion. Attention was turned to the anterior mandible an incision was made in the area of tooth numbers 23 through 26 and a full thickness fat flap was elevated to the buckle. Teeth numbers 23 through 26 were then removed using forceps technique without complication. Second secured free of debris and irrigated copious amount sterile saline gingival tissues reapproximated using 4-0 chromic gut suture in interrupted fashion. Oral cavity suctioned free of debris throat pack was removed. Gauze packs placed. Care of the patient returned the issues Service who extubated the patient transferred to recovery in stable condition. Anesthesia general anesthesia and 5cc of 2% lidocaine and 1000 epinephrine. Complications none. Estimated blood loss 10cc
[2022-08-06] MEDS: fentaNYL CITRATE INJ (*CRX) 100 MCG/2 ML VIAL 25 MCG IV PUSH ×3 (11:49→11:59)
== END 2022-08-06 13:12 | disposition home or self-care (01) ==
PROVIDERS: PCP Internal Medicine; Visit Provider Dentist
PROC: (CPT 41899; principal; 2022-08-06 10:00)
DX: K02.9 Dental caries, unspecified (principal); G30.9 Alzheimer's disease, unspecified; F02.80 Dementia in other diseases classified elsewhere, unspecified severity, without behavioral disturbance, psychotic disturbance, mood disturbance, and anxiety; G20 Parkinson's disease; I25.10 Atherosclerotic heart disease of native coronary artery without angina pectoris; N40.0 Benign prostatic hyperplasia without lower urinary tract symptoms; I71.20 Thoracic aortic aneurysm, without rupture, unspecified; I42.9 Cardiomyopathy, unspecified; Z95.5 Presence of coronary angioplasty implant and graft; E66.9 Obesity, unspecified; Z68.33 Body mass index [BMI] 33.0-33.9, adult
CPT/HCPCS: D7240 ×10; 70300; A9270; J0330; J0690; J1100; J2405; J2704; J3010; J7120

== ENCOUNTER 2022-09-25 06:27 | Outpatient (NON) | payer MEDICARE, SELFPAY ==
[2022-09-25 06:50] LABS: Basophils Absolute Auto 0.07 K/mm3 (0.00-0.10); Basophils Percent Auto 0.8 % (0.0-1.0); Eosinophils Absolute Auto 0.26 K/mm3 (0.02-0.50); Eosinophils Percent Auto 3.1 % (1.0-6.0); Hematocrit 43.6 % (37.0-46.0); Hemoglobin 13.7 g/dL (12.4-15.3); Immature Granulocyte Absolute 0.02 K/mm3 (0.00-0.00); Immature Granulocyte Percent A 0.2 % (0.0-0.0); Mean Corpuscular HGB Conc 31.4 g/dL (32.0-36.0); Mean Corpuscular Hemoglobin 28.2 pg (27.0-31.0); Mean Corpuscular Volume 89.7 fL (78.0-102.0); Mean Platelet Volume 9.9 fl (8.7-11.0); Monocytes Absolute Auto 0.68 K/mm3 (0.10-0.90); Monocytes Percent Auto 8.2 % (2.0-11.0); Neutrophils Absolute Auto 4.9 K/mm3 (1.7-7.2); Neutrophils Percent Auto 58.7 % (50.0-70.0); Platelet Count Result 278 K/mm3 (150-420); Red Blood Count 4.86 M/mm3 (4.70-6.10); Red Cell Distribution Width 13.2 % (11.6-14.4); White Blood Count 8.3 K/mm3 (4.8-10.8)
[2022-09-25 07:19] LABS: Alanine Aminotransferase 21 U/L (16-63); Albumin Level 3.2 g/dL (3.4-5.0); Alkaline Phosphatase 81 U/L (46-116); Anion Gap 6 mmol/L (8-16); Aspartate Amino Transferase 15 U/L (15-37); Bilirubin,Total 0.3 mg/dL (0.00-1.00); Blood Urea Nitrogen 12 mg/dL (7-18); Calcium 8.9 mg/dL (8.5-10.1); Carbon Dioxide 28 mmol/L (21-32); Chloride 104 mmol/L (98-108); Cholesterol 229 mg/dL (0-200); Estimated Glomerular Filt Rate > 60; Free T3 2.01 pg/mL (2.18-3.98); Free T4 Free Thyroxine 0.99 ng/dL (0.76-1.46); Glucose 93 mg/dL (70-99); HDL Direct 39 mg/dL (40-60); LDL Cholesterol Calculated 155 mg/dL (<130); Osmolality Calculated 285 mOsm/kg (285-295); Potassium 4.4 mmol/L (3.5-5.1); Sodium 138 mmol/L (136-145); Thyroid Stimulating Hormone 3.69 uIU/mL (0.36-3.74); Triglycerides 174 mg/dL (0-150)
[2022-09-25 11:04] LABS: Appearance Urine Slightly Cloudy (Clear); Bilirubin Urine Negative (Negative); Blood Urine 1+ (Negative); Color Urine Light Yellow (Yellow); Glucose Urine UA Negative (Negative); Ketones Urine Negative (Negative); Leukocyte Esterase Ur 3+ LEU/UL (Negative); Nitrate Urine Positive (Negative); Protein Urine Negative (Negative); Urobilinogen Urine 0.2 mg/dL (0.2-1.0); pH Urine 6.5 (5.0-8.0)
[2022-09-25 11:10] LABS: Add Urine Microscopic? YES; Bacteria Urine 4+ /hpf; Squamous Epithelial Cell Urine Few /hpf (Few); WBC Urine 31-50 /hpf (0-3)
== END 2022-09-25 06:28 | disposition home or self-care (01) ==
LOC: CHSLAB 06:31
PROVIDERS: PCP Internal Medicine; Visit Provider Internal Medicine
DX: E78.2 Mixed hyperlipidemia (principal); R31.29 Other microscopic hematuria; E03.9 Hypothyroidism, unspecified
CPT/HCPCS: 36415; 80053; 80061; 81001; 84439; 84443; 84481; 85025; 87077; 87086; 87088; 87186

== ENCOUNTER 2022-10-09 06:36 | Outpatient (NON) | payer MEDICARE, SELFPAY ==
[2022-10-09 07:02] LABS: Add Urine Microscopic? YES; Appearance Urine Clear (Clear); Bilirubin Urine Negative (Negative); Blood Urine Trace-Intact (Negative); Color Urine Yellow (Yellow); Glucose Urine UA Negative (Negative); Ketones Urine Negative (Negative); Leukocyte Esterase Ur Negative LEU/UL (Negative); Nitrate Urine Negative (Negative); Protein Urine Negative (Negative); RBC Urine 0-2 /hpf (0-2); Specific Grav Ur 1.025 (1.010-1.020); Squamous Epithelial Cell Urine Rare /hpf (Few); Urobilinogen Urine 0.2 mg/dL (0.2-1.0); WBC Urine 0-3 /hpf (0-3)
[2022-10-09 07:05] LABS: Bacteria Urine Trace /hpf; Mucus Urine Few /lpf
== END 2022-10-09 06:37 | disposition home or self-care (01) ==
LOC: CHSLAB 06:38
PROVIDERS: Visit Provider Internal Medicine
DX: N39.0 Urinary tract infection, site not specified (principal)
CPT/HCPCS: 81001

== ENCOUNTER 2023-06-30 06:52 | Outpatient (NON) | payer MEDICARE, SELFPAY ==
[2023-06-30 07:06] LABS: Basophils Absolute Auto 0.04 K/mm3 (0.00-0.10); Basophils Percent Auto 0.4 % (0.0-1.0); Eosinophils Percent Auto 4.3 % (1.0-6.0); Hematocrit 39.8 % (37.0-46.0); Hemoglobin 12.4 g/dL (12.4-15.3); Immature Granulocyte Absolute 0.02 K/mm3 (0.00-0.00); Immature Granulocyte Percent A 0.2 % (0.0-0.0); Lymphocytes Absolute Auto 2.03 K/mm3 (1.10-4.50); Lymphocytes Percent Auto 21.8 % (18.0-42.0); Mean Corpuscular HGB Conc 31.2 g/dL (32.0-36.0); Mean Corpuscular Volume 89.8 fL (78.0-102.0); Mean Platelet Volume 10.1 fl (8.7-11.0); Monocytes Percent Auto 8.6 % (2.0-11.0); Neutrophils Percent Auto 64.7 % (50.0-70.0); Platelet Count Result 233 K/mm3 (150-420); Red Blood Count 4.43 M/mm3 (4.70-6.10); Red Cell Distribution Width 13.6 % (11.6-14.4); White Blood Count 9.3 K/mm3 (4.8-10.8)
[2023-06-30 07:49] LABS: Alanine Aminotransferase 10 U/L (16-63); Albumin Level 2.9 g/dL (3.4-5.0); Alkaline Phosphatase 64 U/L (46-116); Anion Gap 9 mmol/L (8-16); Aspartate Amino Transferase 12 U/L (15-37); Bilirubin,Total 0.3 mg/dL (0.00-1.00); Blood Urea Nitrogen 15 mg/dL (7-18); Calcium 8.6 mg/dL (8.5-10.1); Carbon Dioxide 29 mmol/L (21-32); Chloride 101 mmol/L (98-108); Estimated Glomerular Filt Rate > 60; Free T3 1.78 pg/mL (2.18-3.98); Free T4 Free Thyroxine 1.04 ng/dL (0.76-1.46); Glucose 104 mg/dL (70-99); Osmolality Calculated 288 mOsm/kg (285-295); Potassium 4.5 mmol/L (3.5-5.1); Sodium 139 mmol/L (136-145); Thyroid Stimulating Hormone 3.17 uIU/mL (0.36-3.74); Total Protein 6.8 g/dL (6.4-8.2); Vitamin B12 254 pg/mL (193-986)
== END 2023-06-30 06:53 | disposition home or self-care (01) ==
LOC: CHSLAB 06:54
PROVIDERS: Visit Provider Internal Medicine
DX: E03.9 Hypothyroidism, unspecified (principal); E53.8 Deficiency of other specified B group vitamins; R53.83 Other fatigue
CPT/HCPCS: 36415; 80053; 82607; 84439; 84443; 84481; 85025

== ENCOUNTER 2023-07-24 11:26 | Outpatient (CLI) | payer MEDICARE, SELFPAY ==
--- NOTE | ~2023-07-24 | XR_ITS ---
EXAMINATION: XR chest 2V 07/24/2023 14:25 INDICATION: Cough PROCEDURE: AP and lateral chest COMPARISON: Comparison to multiple prior studies sequentially, with oldest reviewed study dated 08/21. FINDINGS: The lungs are clear. The cardiomediastinal silhouette is within normal limits. There are no pleural effusions. There is no pneumothorax suspected. IMPRESSION: 1: NO ACUTE CARDIOPULMONARY DISEASE. Reviewed, dictated and finalized at location B.
[2023-07-24 11:44] LABS: Basophils Absolute Auto 0.07 K/mm3 (0.00-0.10); Basophils Percent Auto 0.8 % (0.0-1.0); Eosinophils Absolute Auto 0.38 K/mm3 (0.02-0.50); Eosinophils Percent Auto 4.3 % (1.0-6.0); Hematocrit 41.3 % (37.0-46.0); Hemoglobin 12.9 g/dL (12.4-15.3); Immature Granulocyte Absolute 0.02 K/mm3 (0.00-0.00); Immature Granulocyte Percent A 0.2 % (0.0-0.0); Lymphocytes Absolute Auto 1.54 K/mm3 (1.10-4.50); Lymphocytes Percent Auto 17.3 % (18.0-42.0); Mean Corpuscular HGB Conc 31.2 g/dL (32-36); Mean Corpuscular Hemoglobin 28.4 pg (27.0-31.0); Mean Corpuscular Volume 90.8 fL (78.0-102.0); Mean Platelet Volume 9.4 fl (8.7-11.0); Monocytes Absolute Auto 0.66 K/mm3 (0.10-0.90); Monocytes Percent Auto 7.4 % (2.0-11.0); Neutrophils Absolute Auto 6.22 K/mm3 (1.70-7.20); Platelet Count Result 215 K/mm3 (150-420); Red Blood Count 4.55 M/mm3 (4.70-6.10); Red Cell Distribution Width 14.4 % (11.6-14.4); White Blood Count 8.9 K/mm3 (4.8-10.8)
[2023-07-24 12:21] LABS: SARS-CoV-2 RNA PCR Negative (Negative)
[2023-07-24 12:22] LABS: Influenza A QL RT-PCR Negative (Negative); Influenza B QL RT-PCR Negative (Negative); RSV RNA, RT-PCR Negative (Negative); Strep Group A RT-PCR DETECTED (Negative)
== END 2023-07-24 11:27 | disposition home or self-care (01) ==
PROVIDERS: PCP Internal Medicine; Visit Provider Internal Medicine
DX: R05.9 Cough, unspecified (principal); R53.82 Chronic fatigue, unspecified
CPT/HCPCS: 36415; 71046; 85025; 87637; 87651

== ENCOUNTER 2023-08-04 12:56 | Emergency (ER) | payer MEDICARE, SELFPAY ==
[2023-08-04] VITALS (11 sets, daily range): BP systolic 105–125; BP diastolic 77–91; PULSE 83–93; RESP 17–25; TEMP 36.8; O2SAT 94–96
--- NOTE | ~2023-08-04 | CT_ITS ---
CT head without contrast Indication: Altered mental status COMPARISON: 08/14/2020 Technique: Serial scans were obtained through the brain without the administration of contrast. Dose reduction technique was used on this scan by utilizing automated exposure control and iterative recon struction technique. The dose-length product (DLP) was 394.35 mGy-cm. Findings: There is no evidence of intracranial hemorrhage, mass lesion, or acute infarct. The ventri cles and subarachnoid spaces are dilated, consistent with moderate to severe atrophy. Low attenuatio n regions are seen within the periventricular white matter bilaterally, likely representing changes f rom chronic microvascular ischemic disease. There is no evidence of edema, mass effect or midline sh ift. The visualized paranasal sinuses and mastoid air cells are clear. Impression: No intracranial hemorrhage, mass, or acute infarct. Atrophy and chronic white matter changes, as above. Reviewed, dictated and finalized at location . Impression: No intracranial hemorrhage, mass, or acute infarct. Atrophy and chronic white matter changes, as above.
--- NOTE | ~2023-08-04 | XR_ITS ---
EXAMINATION: XR chest 1V portable DATE: 08/04/2023 13:58 INDICATION: Altered mental status TECHNIQUE: frontal view of the chest was obtained. COMPARISON: Chest radiograph dated 07/24/2023 FINDINGS: Mild elevation the right hemidiaphragm. Mild streaky opacities at the bilateral lung bases and favor atelectasis over pneumonia. No pulmonary edema, pleural effusion or pneumothorax. The cardiomediastin al silhouette is within normal limits for AP technique. IMPRESSION: 1. Mild streaky bibasilar opacities and favor atelectasis over pneumonia. Reviewed, dictated and finalized at location B.
--- NOTE | 2023-08-04 12:59 | PC.NURSE ---
RN and tech at bedside, verbal order to straight cath patient for possible retention and UA sample.
--- NOTE | 2023-08-04 13:05 | ED.AMS ---
HPI - Altered Mental Status General Chief Complaint: Altered Mental Status Stated Complaint: altered LOC Time Seen by Provider: 08/04/23 12:57 Source: EMS and RN notes reviewed Mode of arrival: EMS Limitations: altered mental status History of Present Illness HPI narrative: Patient is a 78-year-old male with altered mental status for the past day. Patient typically is AAO x2 and he is now paucity of speech with aphasia secondary to altered mental status. He also has Parkinson's disease. His baseline is garbled speech and minimal ability to walk. He does not have any basic deficits as a baseline or noted by EMS. Recently on antibiotics. Patient is coronary patient with prior 2 stents. MD complaint: altered mental status, confusion and decreased responsiveness Onset (ago): day(s) (1) Timing confirmed by: caregiver Severity: moderate Consistency of symptoms: constant Associated symptoms: denies other symptoms Treatments prior to arrival: glucose ( Glucose in the 130s by EMS) Related Data Home Medications Medication Instructions Recorded Confirmed carbidopa 25 mg-levodopa 100 mg 2 tablet PO QID PARKINSONS 07/27/20 08/04/23 disintegrating tablet sertraline 100 mg tablet 150 mg PO DAILY 07/27/20 08/04/23 tamsulosin 0.4 mg capsule 0.8 mg PO DAILY BPH 07/27/20 08/04/23 acetaminophen 500 mg tablet 500 mg PO Q8H PRN Pain 07/30/22 08/04/23 aluminum-mag hydroxide-simethicone 15 ml PO Q6H PRN INDGISTION 07/30/22 08/04/23 200 mg-200 mg-20 mg/5 mL oral susp levothyroxine 88 mcg tablet 88 mcg DAILY 07/30/22 08/04/23 sertraline 50 mg tablet 50 mg DAILY 07/30/22 08/04/23 Allergies Allergy/AdvReac Type Severity Reaction Status Date / Time No Known Allergies Allergy Verified 08/06/22 09:17 Review of Systems Review of Systems: All systems reviewed & are unremarkable except as noted in HPI and below Constitutional: Constitutional: Reports no additional constitutional complaints Eyes: Eyes: Reports no additional eye complaints ENT: Reports system reviewed and no additional complaints, except as documented Cardiovascular: Cardiovascular: Reports no additional cardiovascular complaints Respiratory: Respiratory: Reports no additional respiratory complaints Gastrointestinal: Gastrointestinal: Reports no additional gastrointestinal complaints Genitourinary: Genitourinary: Reports no additional male genitourinary complaints Musculoskeletal: Musculoskeletal: Reports no additional musculoskeletal complaints Integumentary/Breasts: Skin/Breast: Reports system reviewed and no additional complaints, except as docu Neurologic: Reports system reviewed and no additional complaints, except as documented Psychiatric: Psychiatric: Reports no additional psychiatric complaints Endocrine: Endocrine: Reports no additional endocrine complaints Hematologic/Lymphatic: Hematologic/Lymphatic: Reports no additional hematologic/lymphatic complaints Allergic/Immunologic: Allergic/Immunologic: Reports no additional allergic/immunologic complaints PMFSH Past Medical History Medical History Alzheimer disease Aortic aneurysm without rupture BPH (benign prostatic hyperplasia) CAD (coronary artery disease) Cardiomyopathy Dementia Fall from standing Hernia Hyperlipidemia Parkinson disease Renal calculi Thoracic aneurysm without mention of rupture Surgical History Surgical History Hx of cervical spinal arthrodesis Stented coronary artery Family History Family History Father No problems noted. 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 Darling Rod's listed as his spouse. Patient resides at a residential. Smoking status: Never smoker Tobacco
--- NOTE | 2023-08-04 13:28 | PC.NURSE ---
Patient cleaned up and gown on, cardiac cath tech applied. RN and tech assisted with Lab draws due to patient being resistant to procedures. Cardiopulmonary called down for EKG.
[2023-08-04 13:30] LABS: Appearance Urine Clear (Clear); Bilirubin Urine 1+ (Negative); Blood Urine 1+ (Negative); Glucose Urine UA Negative (Negative); Ketones Urine Trace (Negative); Leukocyte Esterase Ur Negative LEU/UL (Negative); Nitrate Urine Negative (Negative); Protein Urine 1+ (Negative); Specific Grav Ur >= 1.030 (1.010-1.020); pH Urine 5.5 (5.0-8.0)
--- NOTE | 2023-08-04 13:30 | PC.NURSE ---
Patient taken down to CT
[2023-08-04 13:31] LABS: Hematocrit 49.8 % (37.0-46.0); Hemoglobin 15.3 g/dL (12.4-15.3); Immature Platelet Fraction Pct 2.6 % (1.0-7.0); Mean Corpuscular HGB Conc 30.7 g/dL (32-36); Mean Corpuscular Hemoglobin 28.5 pg (27.0-31.0); Mean Corpuscular Volume 92.9 fL (78.0-102.0); Mean Platelet Volume 10.1 fl (8.7-11.0); Platelet Count Result 256 K/mm3 (150-420); Red Blood Count 5.36 M/mm3 (4.70-6.10); Red Cell Distribution Width 14.6 % (11.6-14.4)
--- NOTE | 2023-08-04 13:35 | PC.NURSE ---
Patient not in room, cardiopulmonary left and states to repage when patient is back from ct.
[2023-08-04 13:41] LABS: Add Urine Microscopic? YES; Bacteria Urine 1+ /hpf; Color Urine Dark Amber (Yellow); Mucus Urine Few /lpf; WBC Urine None seen /hpf (0-3)
[2023-08-04 13:46] LABS: Band Neutrophils Percent 0 % (0-6); Lymphocytes Percent Manual 10 % (18-44); Monocytes Absolute Manual 1.47 K/mm3 (0.1-0.90); Monocytes Percent Manual 7 % (3-9); Neutrophils Absolute Manual 17.43 K/mm3 (1.3-6.7); Neutrophils Percent Manual 83 % (46-73); Total Cells Counted 100
[2023-08-04 13:47] LABS: Platelet Estimate Adequate (Adequate)
[2023-08-04 13:48] LABS: Alanine Aminotransferase 24 U/L (16-63); Albumin Level 3.2 g/dL (3.4-5.0); Alkaline Phosphatase 84 U/L (46-116); Anion Gap 9 mmol/L (4-12); Aspartate Amino Transferase 55 U/L (15-37); Bilirubin,Total 0.8 mg/dL (0.00-1.00); Blood Urea Nitrogen 22 mg/dL (7-18); Calcium 9.8 mg/dL (8.5-10.1); Carbon Dioxide 28 mmol/L (21-32); Chloride 103 mmol/L (98-108); Estimated Glomerular Filt Rate 54; Glucose 137 mg/dL (70-99); Osmolality Calculated 295 mOsm/kg (285-295); Potassium 4.8 mmol/L (3.5-5.1); Sodium 140 mmol/L (136-145); Total Protein 8.2 g/dL (6.4-8.2)
[2023-08-04 13:50] LABS: Lactic Acid Reflex 2.8 mmol/L (0.4-2.0)
--- NOTE | 2023-08-04 13:50 | PC.NURSE ---
Patient back in room, Cardiopulmonary paged again.
--- NOTE | 2023-08-04 13:55 | ECG_ITS ---
Measurements Intervals [place] Rate: 85 P: 64 OR: 160 QRS: -80 QRSD: 125 T: 75 QT: 367 Avg RR 705 QTc: 409 QTcB 437 QTcF 412 Interpretive Statements SINUS RHYTHM POSSIBLE ANTERIOR MYOCARDIAL INFARCTION OF INDETERMINATE AGE [30 ms Q WAVE IN V3/V4, OR R < 0.2 mV IN V4] INFERIOR MYOCARDIAL INFARCTION, OLD SEE SCANNED COPY FOR SIGNATURE MTDD
--- NOTE | 2023-08-04 14:00 | PC.NURSE ---
[facility] already in ED no need to page. they are taking transfer.
[2023-08-04] MEDS: ASPIRIN 300 MG SUPPOSITORY RECTAL (14:15)
[2023-08-04 16:11] LABS: Reflex Lactic Acid Yes or No No Lactic Reflex
--- NOTE | 2023-08-06 12:32 | PC.NURSE ---
Blood culture x2 reviewed. No growth to date. No change in plan of care
--- NOTE | 2023-08-11 01:56 | PC.NURSE ---
Pts blood culture report stated no growth p 5 days, final report.
== END 2023-08-04 14:23 | disposition short-term general hospital (02) ==
PROVIDERS: Emergency Provider Emergency Medicine; PCP Internal Medicine
DX: I21.3 ST elevation (STEMI) myocardial infarction of unspecified site (principal); J18.9 Pneumonia, unspecified organism; R41.82 Altered mental status, unspecified; D72.829 Elevated white blood cell count, unspecified; I25.10 Atherosclerotic heart disease of native coronary artery without angina pectoris; G20.A1 Parkinson's disease without dyskinesia, without mention of fluctuations; F02.80 Dementia in other diseases classified elsewhere, unspecified severity, without behavioral disturbance, psychotic disturbance, mood disturbance, and anxiety; N40.0 Benign prostatic hyperplasia without lower urinary tract symptoms; I42.9 Cardiomyopathy, unspecified; E78.5 Hyperlipidemia, unspecified; I71.20 Thoracic aortic aneurysm, without rupture, unspecified; Z95.5 Presence of coronary angioplasty implant and graft; Z98.1 Arthrodesis status
CPT/HCPCS: 36415; 70450; 71045; 80053; 81001; 83605; 84484; 85025; 85055; 87040; 93005; 99285; A9270

== ENCOUNTER 2023-08-04 14:50 | Inpatient (IN) | payer MEDICARE, SELFPAY ==
[2023-08-04] VITALS (7 sets, daily range): BP systolic 108–132; BP diastolic 77–94; PULSE 79–84; RESP 15–20; TEMP 36.2–36.9; O2SAT 95–100; BMI 27.8
--- NOTE | ~2023-08-04 | CT_ITS ---
EXAMINATION: CT BRAIN W/O DATE: 08/04/2023 21:52 INDICATION: Altered mental status TECHNIQUE: Computed tomography (CT) of the head was performed without intravenous contrast. The dose- length product was 681.00 mGy-cm. Automated exposure control and iterative reconstruction technique w ere employed. COMPARISON: CT dated 08/04/2023 FINDINGS: Generalized atrophy. There are scattered moderate periventricular and subcortical white mat ter changes, most likely related to small vessel ischemic disease (microangiopathy). There is a chron ic right lacunar infarction of the caudate nucleus. There is intracranial atherosclerosis. No ventriculomegaly or midline shift. Midline sagittal images demonstrate a normal corpus callosum, c raniovertebral junction and sella turcica. Basilar cisterns are patent. There is mild mucosal thickening of the ethmoid sinuses. Mastoids are pneumatized. No depressed skull fractures. IMPRESSION: 1. No acute intracranial abnormality. 2: Chronic right lacunar infarction. 3: Chronic age-related findings. Reviewed, dictated and finalized at location A.
--- NOTE | 2023-08-04 16:03 | ED.GENADULT ---
HPI - General Adult General Chief complaint: Chest Pain Stated complaint: AMS Time Seen by Provider: 08/04/23 15:08 Source: family and EMS Mode of arrival: EMS Limitations: clinical condition and dementia History of Present Illness HPI narrative: 78-year-old with a history of Parkinson's advanced dementia was sent from [facility] for possible [place], as per the was at bedside states that for the past few days he has been not acting right less responsive was taken to [facility] had lab work, CT. Patient was later transferred to our ER for possible [place] . Not much history can be obtained from the patient. also mentioned that he was recently diagnosed with Strep thraot and finished the course of antibiotic few days ago ,no H/O of fever , cough or SOB. Related Data Home Medications Medication Instructions Recorded Confirmed carbidopa 25 mg-levodopa 100 mg 2 tablet PO QID PARKINSONS 07/27/20 08/04/23 disintegrating tablet sertraline 100 mg tablet 150 mg PO DAILY 07/27/20 08/04/23 tamsulosin 0.4 mg capsule 0.8 mg PO DAILY BPH 07/27/20 08/04/23 acetaminophen 500 mg tablet 500 mg PO Q8H PRN Pain 07/30/22 08/04/23 aluminum-mag hydroxide-simethicone 15 ml PO Q6H PRN INDGISTION 07/30/22 08/04/23 200 mg-200 mg-20 mg/5 mL oral susp levothyroxine 88 mcg tablet 88 mcg DAILY 07/30/22 08/04/23 sertraline 50 mg tablet 50 mg DAILY 07/30/22 08/04/23 Allergies Allergy/AdvReac Type Severity Reaction Status Date / Time No Known Allergies Allergy Verified 08/06/22 09:17 Review of Systems Review of Systems: ROS unobtainable: Yes unobtainable due to mental status PMFSH Past Medical History Medical History Alzheimer disease Aortic aneurysm without rupture BPH (benign prostatic hyperplasia) CAD (coronary artery disease) Cardiomyopathy Dementia Fall from standing Hernia Hyperlipidemia Parkinson disease Renal calculi Thoracic aneurysm without mention of rupture Surgical History Surgical History Hx of cervical spinal arthrodesis Stented coronary artery Family History Family History Father No problems noted. 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 Darling Rod's listed as his spouse. Patient resides at a half-way. Smoking status: Never smoker Tobacco type: cigarettes Second hand tobacco smoke exposure: No Alcohol intake: unknown Substance use: unknown Living arrangements: half-way Additional living arrangements comments: [facility] [phone] Gender identity (if verbalized by the patient): Male Sexual Orientation (if Verbalized by the Patient): Straight or Heterosexual Spiritual care concerns: No Exam Narrative: GENERAL: Well-appearing, well-nourished, and in no acute distress. HEAD: Normocephalic, atraumatic. EYES: PERRLA and EOMI. ENT: Nares clear, no rhinorrhea or epistaxis. Mucous membranes moist. NECK: Supple. CHEST: Clear to auscultation. No respiratory distress. HEART: Regular rate and rhythm. No murmur heard. Normal peripheral pulses. ABDOMEN: Soft, nontender, nondistended, normal active bowel sounds. EXTREMITIES: Normal range of motion. No edema. SKIN: Warm, dry, no rash. NEURO: No focal deficits. Alert PSYCH: Normal mood and affect. Course Course Emergency Course: I did review the chart from [facility] [place] [id number] [place], patient had recent strep throat, chest x-ray shows possible pneumonia which start him on Rocephin Zithromax will admit to the hospital when I did discuss with the hospitalist accepted the patient and agree with the plan Vital Signs Vital signs: Vital Signs Temperature 36.8 C 08/04/23 14:56 Pulse Rate 84
[2023-08-04] MEDS: SODIUM CHLORIDE 0.9% IV 1,000 ML 125 ML IV CONT (18:13)
--- NOTE | 2023-08-04 18:17 | PC.NURSE ---
This patient, Jim Rod, was admitted to Medical Room 348-01. Patient/family oriented to hospital policies and general routines including ID bracelet, bed and alarms, visiting hours, pain management, procedures, bathroom and other care routines, personal items, smoking policy, room service/diet, and visiting hours. Information on how to activate the Rapid Response Team has been discussed. Patient/Family are encouraged to report perceived risks to care and to ask questions if they do not understand what they are told or what they should do.
--- NOTE | 2023-08-04 20:26 | PM.IMHP ---
H&P: HPI History of Present Illness Date/Time: 08/04/23 20:26 Chief Complaint: AMS Narrative: THIS IS A 78-YEAR-OLD MALE WITH PAST MEDICAL HISTORY SIGNIFICANT FOR ADVANCED PARKINSON'S DEMENTIA, PATIENT WAS BROUGHT TO THE EMERGENCY ROOM DUE TO ALTERED MENTAL STATUS, GENERALIZED WEAKNESS. PRELIMINARY WORKUP WAS SIGNIFICANT FOR ELEVATED TROPONIN A CHEST X-RAY SHOWED LUNG INFILTRATES.Patient unable to give any meaningful history. Admitted for further evaluation management and treatment. EXAMINATION: XR chest 1V portable DATE: 08/04/2023 13:58 INDICATION: Altered mental status TECHNIQUE: frontal view of the chest was obtained. COMPARISON: Chest radiograph dated 07/24/2023 FINDINGS: Mild elevation the right hemidiaphragm. Mild streaky opacities at the bilateral lung bases and favor atelectasis over pneumonia. No pulmonary edema, pleural effusion or pneumothorax. The cardiomediastinal silhouette is within normal limits for AP technique. IMPRESSION: 1. Mild streaky bibasilar opacities and favor atelectasis over pneumonia. CT head without contrast Indication: Altered mental status COMPARISON: 08/14/2020 Technique: Serial scans were obtained through the brain without the administration of contrast. Dose reduction technique was used on this scan by utilizing automated exposure control and iterative reconstruction technique. The dose-length product (DLP) was 394.35 mGy-cm. Findings: There is no evidence of intracranial hemorrhage, mass lesion, or acute infarct.? The ventricles and subarachnoid spaces are dilated, consistent with moderate to severe atrophy.? Low attenuation regions are seen within the periventricular white matter bilaterally, likely representing changes from chronic microvascular ischemic disease. There is no evidence of edema,? mass effect or midline shift.? The visualized paranasal sinuses and mastoid air cells are clear. Impression: No intracranial hemorrhage, mass, or acute infarct. Atrophy and chronic white matter changes, as above. Review of Systems Review of Systems: ROS unobtainable: Yes unobtainable due to medical condition ( ADVANCED DEMENTIA) [facility] Past Medical History Medical History Alzheimer disease Aortic aneurysm without rupture BPH (benign prostatic hyperplasia) CAD (coronary artery disease) Cardiomyopathy Dementia Fall from standing Hernia Hyperlipidemia Parkinson disease Renal calculi Thoracic aneurysm without mention of rupture Surgical History Surgical History Hx of cervical spinal arthrodesis Stented coronary artery Family History Family History Father No problems noted. 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 Darling Rod's listed as his spouse. [facility]. Smoking packs per day: 1 Smoking cigarettes per day: 20.0 Years smoked: 40 Smoking pack-years: 40.00 Smoking status: Former smoker Tobacco type: cigarettes Second hand tobacco smoke exposure: Yes Alcohol intake: never Substance use: never Substance use type: does not use Living arrangements: penitentiary Additional living arrangements comments: [facility] [phone] Gender identity (if verbalized by the patient): Male Sexual Orientation (if Verbalized by the Patient): Straight or Heterosexual Spiritual care concerns: No Meds Home Medications and Allergies Home Medications Medication Instructions Recorded Confirmed Type carbidopa 25 mg-levodopa 100 mg 2 tablet PO QID PARKINSONS 07/27/20 08/04/23 History disintegrating tablet sertraline 100 mg tablet 150 mg PO DAILY 07/27/20 08/04/23 History tamsulosin 0.4 mg capsule 0.8 mg PO HS BPH 07/27
--- NOTE | 2023-08-04 21:00 | ECG_ITS ---
Measurements Intervals [place] Rate: 75 P: 30 NM: 172 QRS: -69 QRSD: 122 T: 63 QT: 382 QTc: 412 Interpretive Statements SINUS RHYTHM POOR R-WAVE PROGRESSION INFERIOR MYOCARDIAL INFARCTION, OLD ABNORMAL ECG SEE SCANNED COPY FOR SIGNATURE MTDD
[2023-08-04] MEDS: TAMSULOSIN HCL 0.4 MG CAPSULE 0.8 MG PO (21:20)
[2023-08-04] MEDS: CARBIDOPA/LEVODOPA 25/100 MG TABLET 2 TABLET PO (21:21)
--- NOTE | 2023-08-04 23:50 | ADMGEN ---
This patient, Jim Rod, was admitted to IMU Room 231-01. Patient/family oriented to hospital policies and general routines including ID bracelet, bed and alarms, visiting hours, pain management, procedures, bathroom and other care routines, personal items, smoking policy, room service/diet, and visiting hours. Information on how to activate the Rapid Response Team has been discussed. Patient/Family are encouraged to report perceived risks to care and to ask questions if they do not understand what they are told or what they should do.
[2023-08-05] VITALS (19 sets, daily range): BP systolic 100–154; BP diastolic 44–95; PULSE 73–93; RESP 18–22; TEMP 36.2–37.3; O2SAT 85–99
--- NOTE | 2023-08-05 | ECHO_ITS ---
Patient Info Name: Jim Rod Age: 78 years : 1945 Gender: Male Ht: 72 in Wt: 230 lbs BSA: 2.33 m2 HR: 84 bpm BP: 137 / 92 mmHg Heart Rhythm: Indeterminant Technical Quality: Poor Exam Date: 08/05/2023 10:48 AM Exam Location: Echo Lab Patient Status: Inpatient Admit Date: 08/04/2023 Staff Ordering Physician: Jovany Jaramillo MD (sebastian/derick) [employer] Helper: Frank Howard RDCS Attending Provider: Mo Gresham DO Referring Physician: Clint CUNNINGHAM; Exam Type: CA echo dop color flow w con Study Info Indications - elevated troponin Complete two-dimensional, color flow and Doppler transthoracic echocardiogram is performed with contrast to opacify the left ventricle and to improve the deliniation of the left ventricle endocardial borders. Reason for Poor Study: poor echocardiographic windows Summary 1. Technically difficult study. 2. Left ventricular chamber dimension is normal. 3. Left ventricular systolic function is hyperdynamic, estimated at >70%. 4. Right ventricular systolic function is normal. 5. There is mild tricuspid valve regurgitation. Left Ventricle Left ventricular chamber dimension is normal. Left ventricular systolic function is hyperdynamic, estimated at >70%. There is no increased left ventricular wall thickness. Right Ventricle Right ventricular chamber dimension is normal. Right ventricular systolic function is normal. Left Atria Left atrial chamber dimension is normal. Right Atria Right atrial chamber dimension is normal. Atrial Septum Intact interatrial septum visualized by color flow imaging. Aortic Valve The aortic valve is not well visualized. There is no aortic valve stenosis. There is no aortic valve regurgitation. Pulmonic Valve The pulmonic valve is not well visualized. Mitral Valve There is trace mitral valve regurgitation. Tricuspid Valve There is mild tricuspid valve regurgitation. Pericardium/Pleural There is no pericardial effusion. Inferior Vena Cava Inferior vena cava is not well visualized. Aorta The aortic root size at the sinus of Valsalva is normal. Left Ventricular Outflow Tract Name Value Normal LVOT 2D LVOT Diameter 2.18 cm LVOT Doppler LVOT Peak Gradient 1 mmHg LVOT Mean Gradient 1 mmHg LVOT VTI 5.82 cm LVOT VTI/AV VTI Ratio 0.56 LVOT Stroke Volume 21.75 ml LVOT CO 8.57 l/min LVOT CI 3.68 L/min/m2 Pulmonic Valve Name Value Normal RVOT Doppler RVOT Peak Gradient 2 mmHg PV Doppler PV Peak Gradient 3 mmHg Mitral Valve Name Value
[2023-08-05 01:36] LABS: Basophils Percent Auto 0.2 % (0.2-1.2); Eosinophils Percent Auto 0.1 % (0-4.4); Hematocrit 42.2 % (42.0-52.0); Hemoglobin 13.9 g/dL (14.0-18.0); Immature Granulocyte Absolute 0.06 K/mm3 (0.00-0.031); Immature Granulocyte Percent A 0.3 % (0-0.5); Lymphocytes Absolute Auto 1.27 K/mm3 (0.9-3.2); Lymphocytes Percent Auto 7.2 % (18.3-44.2); Mean Corpuscular HGB Conc 32.9 g/dl (32-36); Mean Corpuscular Hemoglobin 29.2 pg (26-34); Mean Corpuscular Volume 88.7 fl (80-100); Mean Platelet Volume 9.9 fl (7.4-10.4); Monocytes Absolute Auto 1.3 K/mm3 (0.1-0.6); Monocytes Percent Auto 7.4 % (2.6-8.5); Neutrophils Percent Auto 84.8 % (45.5-73.1); Platelet Count Result 236 k/mm3 (150-375); Red Blood Count 4.76 M/mm3 (4.6-6.20); White Blood Count 17.7 K/mm3 (4.5-10.0)
[2023-08-05 02:18] LABS: INR 1.1
[2023-08-05 02:19] LABS: Partial Thromboplastin Time 38.5 Seconds (22.3-36.8)
[2023-08-05] MEDS: HEPARIN SOD/D5W 100 UNITS/ML 25,000 UNITS/250 ML BAG 10 UNITS IV CONT (02:39)
--- NOTE | 2023-08-05 02:50 | PC.NURSE ---
Call placed to Dr. Bowden regarding initiation of heparin drip. stated that she needed to review pt's head CT. MD ordered PTT and heparin drip. PTT results discussed with . states no need for heparin bolus. Patient started on a heparin drip at 0239.
[2023-08-05] MEDS: SODIUM CHLORIDE 0.9% IV 1,000 ML 125 ML IV CONT ×2 (04:07→14:28)
[2023-08-05] MEDS: LEVOTHYROXINE SODIUM 88 MCG TABLET PO (06:14)
[2023-08-05] MEDS: CARBIDOPA/LEVODOPA 25/100 MG TABLET 2 TABLET PO ×4 (08:23→20:28)
[2023-08-05] MEDS: SERTRALINE HCL 50 MG TABLET 150 MG PO (08:23)
[2023-08-05 09:09] LABS: Basophils Percent Auto 0.2 % (0.2-1.2); Eosinophils Percent Auto 0.1 % (0-4.4); Hemoglobin 13.7 g/dL (14.0-18.0); Immature Granulocyte Absolute 0.08 K/mm3 (0.00-0.031); Immature Granulocyte Percent A 0.5 % (0-0.5); Lymphocytes Absolute Auto 1.26 K/mm3 (0.9-3.2); Lymphocytes Percent Auto 7.3 % (18.3-44.2); Mean Corpuscular HGB Conc 31.1 g/dl (32-36); Mean Corpuscular Hemoglobin 28.4 pg (26-34); Mean Corpuscular Volume 91.1 fl (80-100); Mean Platelet Volume 10.4 fl (7.4-10.4); Monocytes Absolute Auto 1.2 K/mm3 (0.1-0.6); Monocytes Percent Auto 6.9 % (2.6-8.5); Neutrophils Absolute Auto 14.6 K/mm3 (1.3-6.7); Platelet Count Result 261 k/mm3 (150-375); Red Blood Count 4.83 M/mm3 (4.6-6.20); White Blood Count 17.2 K/mm3 (4.5-10.0)
[2023-08-05] MEDS: AZITHROMYCIN 500 MG/NS 250 ML 500 MG/250 ML BAG 250 MG IVPB (09:13)
[2023-08-05 09:22] LABS: Partial Thromboplastin Time 48.5 Seconds (22.3-36.8)
[2023-08-05 09:40] LABS: Cholesterol 157 mg/dL (0-200); HDL Direct 37 mg/dL; Triglycerides 91 mg/dL (<150)
[2023-08-05 09:41] LABS: Anion Gap 9 mmol/L (4-12); Blood Urea Nitrogen 24 mg/dL (9-20); Calcium 9.7 mg/dL (8.4-10.2); Carbon Dioxide 23 mmol/L (22-30); Chloride 109 mmol/L (98-107); Estimated CRCL calculation 75 ml/min; Estimated Glomerular Filt Rate > 60; Glucose 144 mg/dL (65-110); Potassium 3.8 mmol/L (3.4-5.0); Sodium 141 mmol/L (137-145)
[2023-08-05 09:54] LABS: LDL Cholesterol Direct 84 mg/dL
[2023-08-05] MEDS: HEPARIN SODIUM 5,000 UNITS/ML VIAL 4000 UNITS IV PUSH (10:03)
[2023-08-05 10:47] LABS: Hemoglobin A1C 5.5 % (<5.7)
--- NOTE | 2023-08-05 10:52 | PM.CNCAR ---
Assessment and Plan Assessment and plan (1) NSTEMI (non-ST elevated myocardial infarction): Code(s): I21.4 - Non-ST elevation (NSTEMI) myocardial infarction Status: Acute Assessment and Plan: Unable to obtain any history from the patient, which makes this case difficult. Troponin of 6640 at [place]. EKG showed sinus rhythm, old inferior infarction, poor R-wave progression. No prior EKG available for comparison. Troponins here are 8.680, 7.580. Repeat EKG here is stable without changes. He has been started on Heparin drip. Recently treated for a Strep infection and now being treated for pneumonia. Could possibly be myocarditis, however, cannot rule out an acute coronary syndrome at this time. At this point, will continue Heparin drip for now. Echocardiogram ordered and pending. Will start ASA and high intensity statin. Patient is a DNR, and RN tells me that comfort measures were in place before he got transferred to the IMU. Will need to clarify goals of care with the family as patient cannot make any decisions for himself. If he were to need cardiac catheterization, he would need to be FULL CODE for the procedure. However, given his current quality of life, DNR status, it may be more appropriate for conservative medical therapy rather than put him through procedures/surgeries. (2) Pneumonia: Qualifiers: Laterality: unspecified laterality Lung location: unspecified part of lung Pneumonia type: due to unspecified organism Qualified Code(s): J18.9 - Pneumonia, unspecified organism Code(s): J18.9 - Pneumonia, unspecified organism Status: Acute Assessment and Plan: On antibiotics per Hospitalist. (3) Parkinson disease: Code(s): G20 - Parkinson's disease Status: Chronic Assessment and Plan: He is non-verbal at baseline. History of Present Illness History of Present Illness Consult date/time: 08/05/23 10:52 Requesting physician: Abbey Bowden MD Consult reason: Other (NSTEMI) Reason For Visit: Altered Mental Status, Pneumonia Narrative: We are consulted for NSTEMI. This is a 78 year old male with history of Alzheimer's dementia, Parkinson's disease. He is non-verbal at baseline, therefore, unable to obtain any history from the patient. No family at bedside at the time of my evaluation. History obtained from the chart and patient's medical team. Patient presented to [facility] on 08/03 for altered mental status for the past day. He was recently diagnosed with Strep throat (tested positive for Strep). [place] ER workup showed WBC of 21. Troponin of 6640. EKG showed sinus rhythm, old inferior infarction, poor R-wave progression. No prior EKG available for comparison. Initially, STEMI was activated from [facility], but no evidence of STEMI upon my interpretation, therefore I canceled the STEMI alert. Troponins here are 8.680, 7.580. Repeat EKG here is stable without changes. He has been started on Heparin drip. Review of Systems Review of Systems: ROS unobtainable: Yes unobtainable due to mental status PMFSH Past Medical History Medical History Alzheimer disease Aortic aneurysm without rupture BPH (benign prostatic hyperplasia) CAD (coronary artery disease) Cardiomyopathy Dementia Fall from standing Hernia Hyperlipidemia Parkinson disease Renal calculi Thoracic aneurysm without mention of rupture Surgical History Surgical History Hx of cervical spinal arthrodesis Stented coronary artery Family History Family History Father No problems noted. 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 Darling Rod's listed as his spouse. Patient resides at a [facility]dc. Smoking p
[2023-08-05] MEDS: PERFLUTREN LIPID MICROSPHERES 1.5 ML VIAL DILUTED TO 10 ML TOTAL VOLUME IV PUSH (11:10)
[2023-08-05] MEDS: ATORVASTATIN 40 MG TABLET 80 MG PO (11:32)
[2023-08-05] MEDS: ASPIRIN 81 MG CHEWABLE TABLET PO (11:32)
--- NOTE | 2023-08-05 12:16 | IVDEFINITY ---
Prior to administration of IV Definity the patient was educated on the risks and benefits of the imaging enhancing agent including potential adverse side effects. The patient verbalized understanding. Allergies were verified. No exclusion criteria were identified and at least one of the following inclusion criteria were met: 1) physician request, 2) patient technically difficult to image (per the [place] [employer] guidelines of two or more segments not discernable within the apical view), or 3) questionable left ventricular function. ?
[2023-08-05] MEDS: CEFEPIME 2 GM/NS 50 ML 2 GM/50 ML BAG IVPB ×2 (14:28→21:37)
--- NOTE | 2023-08-05 15:27 | PM.IMPN ---
Progress Note: A&P Assessment and Plan (1) NSTEMI (non-ST elevated myocardial infarction): Code(s): I21.4 - Non-ST elevation (NSTEMI) myocardial infarction Status: Acute (2) Pneumonia: Qualifiers: Laterality: unspecified laterality Lung location: unspecified part of lung Pneumonia type: due to unspecified organism Qualified Code(s): J18.9 - Pneumonia, unspecified organism Code(s): J18.9 - Pneumonia, unspecified organism Status: Acute Plan # NSTEMI - significant elevated troponins 8.6, 7.5. Patient had some diaphoresis to suggesting patient may have had a true NSTEMI - cardiology consulted: recommendation for conservative management at this time with heparin drip medical management, possibility for heart catheterization - echocardiogram: hyperdynamic greater than 70% EF, no WMA - with stable echo, perhaps patient's elevated troponins are secondary to his infection - heparin drip started - Patient on aspirin and statin # community-acquired pneumonia - patient recently had a strep infection which likely did not resolve - antibiotics: Patient started on azithromycin Rocephin, will escalate to cefepime considering patient's sepsis - patient continues be diaphoretic despite antibiotics - blood cultures pending - ordered strep a test, Legionella ag, procalc, pneumococcal ag #Chronic conditions - Parkinson's dementia: Continue carbidopa-levodopa - Hypothyroidism: Synthroid - Constipation: Milk of magnesium - Depression: Sertraline - BPH: Flomax Diet: Regular diet DVT prophylaxis: heparin gtt Code status: DNR Disposition: continue monitor in IMU, discharge > 3 days Subjective Date/time seen: 08/05/23 15:27 Interval history: Patient seen and examined. he is nonverbal. was admitted overnight with NSTEMI and recent strep infection. is significant leukocytosis and elevated troponins. Of note patient is DNR and has severe Parkinson's dementia. Review of Systems Review of Systems: unable to obtain due to mental status Exam Narrative: - GENERAL: frail male diaphoretic - EYES: EOMI. Anicteric. - HENT: Moist mucous membranes. - LUNGS: Clear to auscultation bilaterally, no wheezing, rhonchi, or rales. - CARDIOVASCULAR: Regular rate and rhythm. No murmur. No JVD. - ABDOMEN: Soft, non-tender and non-distended. No palpable masses. - EXTREMITIES: No edema. Peripheral pulses 2+ - NEUROLOGIC: unable to assess - PSYCHIATRIC: awake and alert, unable to assess orientation, nonverbal - SKIN: No rashes or lesions. Warm. Objective Data Vital Signs Vital Signs: Vital Signs - 24 hr 08/04/23 15:47 08/04/23 16:53 08/04/23 17:02 Temperature 36.9 C 36.6 C 36.7 C Pulse Rate 82 79 80 Respiratory Rate 20 20 20 Blood Pressure 121/82 132/90 113/94 H Pulse Oximetry 98 97 Oxygen Delivery Oxygen Flow Rate 08/04/23 18:04 08/04/23 19:56 08/04/23 20:00 Temperature 36.2 C L 36.3 C L Pulse Rate 80 79 Respiratory Rate 18 20 Blood Pressure 108/77 117/78 Pulse Oximetry 95 95 Oxygen Delivery Room Air Oxygen Flow Rate 08/05/23 00:39 08/05/23 00:00 08/05/23 04:00 Temperature 36.4 C L Pulse Rate 73 81 Respiratory Rate 20 Blood Pressure 109/75 Pulse Oximetry 99 99 Oxygen Delivery Nasal Cannula Oxygen Flow Rate 2 08/05/23 04:00 08/05/23 05:04 08/05/23 06:00 Temperature 36.4 C L Pulse Rate 79 83 Respiratory Rate 18 Blood Pressure 134/85 Pulse Oximetry 85 L 99 Oxygen Delivery Nasal Cannula Oxygen Flow Rate 2 08/05/23 07:56 08/05/23 08:00 08/05/23 10:00 Temperature 36.4 C L Pulse Rate 84 87 82 Respiratory Rate 22 H Blood Pressure 137/92 H Pulse Oximetry 97 Oxygen Delivery Oxygen Flow Rate 08/05/23 08:00 08/05/23 12:03 08/05/23 12:00 Temperature 36.2 C L Pulse Rate 91 Respiratory Rate 22 H Blood Pressure 154/63 H Pulse Oximetry 97 97 97 Oxygen Delivery Nasal Cannula Nasal Cannula Oxygen
[2023-08-05 17:06] LABS: Partial Thromboplastin Time 83.9 Seconds (22.3-36.8)
[2023-08-05 18:20] LABS: Procalcitonin 10.6 ng/mL
[2023-08-05 19:07] LABS: Strep Group A RT-PCR NOT DETECTED (Negative)
[2023-08-05] MEDS: TAMSULOSIN HCL 0.4 MG CAPSULE 0.8 MG PO (20:28)
[2023-08-05] MEDS: HEPARIN SOD/D5W 100 UNITS/ML 25,000 UNITS/250 ML BAG 14 UNITS IV CONT (22:10)
[2023-08-06] VITALS (18 sets, daily range): BP systolic 97–147; BP diastolic 59–94; PULSE 52–115; RESP 16–24; TEMP 36.2–37.8; O2SAT 91–99
[2023-08-06 00:18] LABS: Partial Thromboplastin Time 80.5 Seconds (22.3-36.8)
[2023-08-06] MEDS: SODIUM CHLORIDE 0.9% IV 1,000 ML 125 ML IV CONT ×2 (00:20→06:26)
[2023-08-06 05:06] LABS: Basophils Percent Auto 0.3 % (0.2-1.2); Eosinophils Absolute Auto 0.1 K/mm3 (0-0.3); Eosinophils Percent Auto 0.9 % (0-4.4); Hematocrit 37.9 % (42.0-52.0); Hemoglobin 11.6 g/dL (14.0-18.0); Immature Granulocyte Absolute 0.05 K/mm3 (0.00-0.031); Immature Granulocyte Percent A 0.4 % (0-0.5); Lymphocytes Absolute Auto 1.63 K/mm3 (0.9-3.2); Lymphocytes Percent Auto 12.9 % (18.3-44.2); Mean Corpuscular HGB Conc 30.6 g/dl (32-36); Mean Corpuscular Hemoglobin 28.6 pg (26-34); Mean Corpuscular Volume 93.6 fl (80-100); Mean Platelet Volume 10.4 fl (7.4-10.4); Monocytes Absolute Auto 0.9 K/mm3 (0.1-0.6); Monocytes Percent Auto 6.8 % (2.6-8.5); Neutrophils Absolute Auto 9.9 K/mm3 (1.3-6.7); Neutrophils Percent Auto 78.7 % (45.5-73.1); Platelet Count Result 224 k/mm3 (150-375); Red Blood Count 4.05 M/mm3 (4.6-6.20); Red Cell Distribution Width 15.1 % (11.5-14.5); White Blood Count 12.6 K/mm3 (4.5-10.0)
[2023-08-06 05:15] LABS: Partial Thromboplastin Time 67.8 Seconds (22.3-36.8)
[2023-08-06 05:24] LABS: Alanine Aminotransferase 11 U/L (6-50); Albumin Level 3.4 g/dL (3.5-5.1); Alkaline Phosphatase 93 U/L (38-126); Anion Gap 4 mmol/L (4-12); Aspartate Amino Transferase 26 U/L (17-59); Bilirubin,Total 0.9 mg/dL (0.2-1.3); Blood Urea Nitrogen 20 mg/dL (9-20); Calcium 8.8 mg/dL (8.4-10.2); Carbon Dioxide 25 mmol/L (22-30); Chloride 110 mmol/L (98-107); Estimated CRCL calculation 98 ml/min; Estimated Glomerular Filt Rate > 60; Glucose 123 mg/dL (65-110); Magnesium 2.1 mg/dL (1.6-2.3); Potassium 3.3 mmol/L (3.4-5.0); Sodium 139 mmol/L (137-145)
[2023-08-06] MEDS: LEVOTHYROXINE SODIUM 88 MCG TABLET PO (06:24)
[2023-08-06] MEDS: CEFEPIME 2 GM/NS 50 ML 2 GM/50 ML BAG IVPB ×3 (06:24→22:47)
[2023-08-06] MEDS: AZITHROMYCIN 500 MG/NS 250 ML 500 MG/250 ML BAG 250 MG IVPB (08:27)
[2023-08-06] MEDS: ASPIRIN 81 MG CHEWABLE TABLET PO (08:27)
[2023-08-06] MEDS: SERTRALINE HCL 50 MG TABLET 150 MG PO (08:27)
[2023-08-06] MEDS: CARBIDOPA/LEVODOPA 25/100 MG TABLET 2 TABLET PO ×4 (08:27→20:10)
[2023-08-06] MEDS: ATORVASTATIN 40 MG TABLET 80 MG PO (08:27)
[2023-08-06] MEDS: POTASSIUM CHLORIDE 20 MEQ PACKET (FOR LIQUID) 40 MEQ PO (09:48)
--- NOTE | 2023-08-06 11:00 | PM.PNCARD ---
Progress Note: A&P Assessment and Plan (1) NSTEMI (non-ST elevated myocardial infarction): Code(s): I21.4 - Non-ST elevation (NSTEMI) myocardial infarction Status: Acute Assessment and Plan: Unable to obtain any history from the patient, which makes this case difficult. Troponin of 6640 at [place]. EKG showed sinus rhythm, old inferior infarction, poor R-wave progression. No prior EKG available for comparison. Troponins here are 8.680, 7.580. Repeat EKG here is stable without changes. Recently treated for a Strep infection and now being treated for pneumonia. Could possibly be myocarditis, however, cannot rule out an acute coronary syndrome at this time. Echocardiogram shows LVEF >70% with no appreciable wall motion abnormalities, no significant valvular disease. Wi Given his current state / quality of life, DNR status, I think it would be more appropriate for conservative medical therapy rather than put him through invasive procedures/surgeries. Therefore, will continue medical management. I will stop the Heparin drip today. Continue ASA and statin. (2) Pneumonia: Qualifiers: Laterality: unspecified laterality Lung location: unspecified part of lung Pneumonia type: due to unspecified organism Qualified Code(s): J18.9 - Pneumonia, unspecified organism Code(s): J18.9 - Pneumonia, unspecified organism Status: Acute Assessment and Plan: His procalcitonin is quite high. On antibiotics per Hospitalist. (3) Parkinson disease: Code(s): G20 - Parkinson's disease Status: Chronic Assessment and Plan: He is non-verbal at baseline. Subjective Date/time seen: 08/06/23 11:00 Interval history: Reason for visit: NSTEMI HPI: We are consulted for NSTEMI. This is a 78 year old male with history of Alzheimer's dementia, Parkinson's disease. He is non-verbal at baseline, therefore, unable to obtain any history from the patient. No family at bedside at the time of my evaluation. History obtained from the chart and patient's medical team. Patient presented to [place] [facility] on 08/03 for altered mental status for the past day. He was recently diagnosed with Strep throat (tested positive for Strep). [place] ER workup showed WBC of 21. Troponin of 6640. EKG showed sinus rhythm, old inferior infarction, poor R-wave progression. No prior EKG available for comparison. Initially, STEMI was activated from [facility], but no evidence of STEMI upon my interpretation, therefore I canceled the STEMI alert. Troponins here are 8.680, 7.580. Repeat EKG here is stable without changes. He has been started on Heparin drip. Date of service 08/05: No acute events overnight. Review of Systems Review of Systems: ROS unobtainable: Yes unobtainable due to medical condition and unobtainable due to mental status Exam Const: General: no acute distress HENMT: Mouth: Yes dry mucous membranes Resp: Effort & Inspection: normal respiratory effort Cardio: Rate: regular rate Rhythm: regular rhythm Skin: General skin exam: normal color Objective Data Vital Signs Vital Signs: Vital Signs - 24 hr 08/05/23 12:03 08/05/23 12:00 08/05/23 13:00 Temperature 36.2 C L 37.3 C Pulse Rate 91 Respiratory Rate 22 H Blood Pressure 154/63 H Pulse Oximetry 97 97 Oxygen Delivery Nasal Cannula Oxygen Flow Rate 2 08/05/23 12:00 08/05/23 14:00 08/05/23 15:45 Temperature 36.9 C Pulse Rate 89 88 90 Respiratory Rate 20 Blood Pressure 125/95 H Pulse Oximetry 97 Oxygen Delivery Oxygen Flow Rate 08/05/23 16:00 08/05/23 18:00 08/05/23 19:44 Temperature 36.4 C Pulse Rate 91 93 82 Respiratory Rate 20 Blood Pressure 142/44 H Pulse Oximetry 96 Oxygen Delivery Oxygen Flow Rate 08/05/23 20:00 08/05/23 20:00 08/05/23 22:00 Temperature Pulse Rate 81 81 85 Respiratory Rate 20 Blood Pressure Pulse Oximetry 96 Oxygen Delivery Nasal Cannula Oxyg
[2023-08-06] MEDS: ACETAMINOPHEN 500 MG TABLET PO (12:12)
--- NOTE | 2023-08-06 12:51 | PM.IMPN ---
Progress Note: A&P Assessment and Plan (1) NSTEMI (non-ST elevated myocardial infarction): Code(s): I21.4 - Non-ST elevation (NSTEMI) myocardial infarction Status: Acute (2) Pneumonia: Qualifiers: Laterality: unspecified laterality Lung location: unspecified part of lung Pneumonia type: due to unspecified organism Qualified Code(s): J18.9 - Pneumonia, unspecified organism Code(s): J18.9 - Pneumonia, unspecified organism Status: Acute Plan # NSTEMI - significantly elevated troponins 8.6, 7.5. Patient had some diaphoresis to suggesting patient may have had a true NSTEMI - cardiology consulted: recommendation for medical management - heparin drip discontinued - echocardiogram: hyperdynamic greater than 70% EF, no WMA - with stable echo, perhaps patient's elevated troponins are secondary to his infection - Patient on aspirin and statin - hypokalemia potassium 3.3 giving 40 mEq potassium chloride # community-acquired pneumonia - patient recently had a strep infection which likely did not resolve - antibiotics: cefepime 08/04- - blood cultures pending - strep a test negative, Legionella ag, procalc 10, pneumococcal ag - IVF 125cc to 75cc/hr #Chronic conditions - Parkinson's dementia: Continue carbidopa-levodopa - Hypothyroidism: Synthroid - Constipation: Milk of magnesium - Depression: Sertraline - BPH: Flomax Diet: Regular diet DVT prophylaxis: off heparin gtt, will start lovenox tomorrow Code status: DNR Disposition: continue monitor in IMU, discharge > 3 days Subjective Date/time seen: 08/06/23 12:51 Interval history: Patient seen examined. he appears to be doing well with improvement of leukocytosis, continue antibiotics for pneumonia. Cardiology would like medical management for NSTEMI. We discontinued heparin drip. will continue IV antibiotics and supportive care. Review of Systems Review of Systems: unable to obtain due to mental status Exam Narrative: - GENERAL: frail male in no acute distress - EYES: EOMI. Anicteric. - HENT: dry mucous membranes. - LUNGS: decreased respiratory effort otherwise clear to auscultation bilaterally no wheezing or rhonchi - CARDIOVASCULAR: Regular rate and rhythm. No murmur. No JVD. - ABDOMEN: Soft, non-tender and non-distended. No palpable masses. - EXTREMITIES: No edema. Peripheral pulses 2+ - NEUROLOGIC: follows commands, responds with yes and no - PSYCHIATRIC: awake and alert, unable to assess orientation - SKIN: No rashes or lesions. Warm. Objective Data Vital Signs Vital Signs: Vital Signs - 24 hr 08/05/23 13:00 08/05/23 14:00 08/05/23 15:45 Temperature 37.3 C 36.9 C Pulse Rate 88 90 Respiratory Rate 20 Blood Pressure 125/95 H Pulse Oximetry 97 Oxygen Delivery Oxygen Flow Rate 08/05/23 16:00 08/05/23 18:00 08/05/23 19:44 Temperature 36.4 C Pulse Rate 91 93 82 Respiratory Rate 20 Blood Pressure 142/44 H Pulse Oximetry 96 Oxygen Delivery Oxygen Flow Rate 08/05/23 20:00 08/05/23 20:00 08/05/23 22:00 Temperature Pulse Rate 81 81 85 Respiratory Rate 20 Blood Pressure Pulse Oximetry 96 Oxygen Delivery Nasal Cannula Oxygen Flow Rate 2 08/05/23 23:49 08/06/23 00:00 08/06/23 00:00 Temperature 36.4 C Pulse Rate 88 82 82 Respiratory Rate 20 20 Blood Pressure 100/70 Pulse Oximetry 98 98 Oxygen Delivery Nasal Cannula Oxygen Flow Rate 2 08/06/23 02:00 08/06/23 04:00 08/06/23 04:00 Temperature Pulse Rate 86 68 68 Respiratory Rate 20 Blood Pressure Pulse Oximetry 98 Oxygen Delivery Nasal Cannula Oxygen Flow Rate 2 08/06/23 04:00 08/06/23 06:00 08/06/23 08:30 Temperature 36.2 C L Pulse Rate 70 74 Respiratory Rate 20 Blood Pressure 129/94 H Pulse Oximetry 99 96 Oxygen Delivery Nasal Cannula Oxygen Flow Rate 2 08/06/23 08:39 08/06/23 10:33 08/06/23 08:00 Temperature 37.8 C H Pulse R
[2023-08-06] MEDS: SODIUM CHLORIDE 0.9% IV 1,000 ML 75 ML IV CONT (18:27)
[2023-08-06] MEDS: TAMSULOSIN HCL 0.4 MG CAPSULE 0.8 MG PO (20:10)
[2023-08-07] VITALS (16 sets, daily range): BP systolic 103–159; BP diastolic 53–86; PULSE 68–91; RESP 12–22; TEMP 35.9–36.9; O2SAT 92–99
[2023-08-07 04:19] LABS: Basophils Absolute Auto 0.1 K/mm3 (0.0-0.1); Basophils Percent Auto 0.4 % (0.2-1.2); Eosinophils Absolute Auto 0.2 K/mm3 (0-0.3); Eosinophils Percent Auto 2.1 % (0-4.4); Hematocrit 37.9 % (42.0-52.0); Hemoglobin 11.5 g/dL (14.0-18.0); Immature Granulocyte Absolute 0.04 K/mm3 (0.00-0.031); Immature Granulocyte Percent A 0.4 % (0-0.5); Lymphocytes Absolute Auto 1.41 K/mm3 (0.9-3.2); Lymphocytes Percent Auto 12.6 % (18.3-44.2); Mean Corpuscular HGB Conc 30.3 g/dl (32-36); Mean Corpuscular Hemoglobin 28.8 pg (26-34); Mean Corpuscular Volume 94.8 fl (80-100); Mean Platelet Volume 10.3 fl (7.4-10.4); Monocytes Absolute Auto 0.7 K/mm3 (0.1-0.6); Monocytes Percent Auto 6.6 % (2.6-8.5); Neutrophils Absolute Auto 8.7 K/mm3 (1.3-6.7); Neutrophils Percent Auto 77.9 % (45.5-73.1); Platelet Count Result 254 k/mm3 (150-375); White Blood Count 11.2 K/mm3 (4.5-10.0)
[2023-08-07 04:25] LABS: Partial Thromboplastin Time 39.2 Seconds (22.3-36.8)
[2023-08-07 04:30] LABS: Anion Gap 2 mmol/L (4-12); Blood Urea Nitrogen 14 mg/dL (9-20); Calcium 8.7 mg/dL (8.4-10.2); Carbon Dioxide 27 mmol/L (22-30); Chloride 107 mmol/L (98-107); Estimated CRCL calculation 98 ml/min; Estimated Glomerular Filt Rate > 60; Glucose 108 mg/dL (65-110); Magnesium 1.9 mg/dL (1.6-2.3); Potassium 3.2 mmol/L (3.4-5.0); Sodium 136 mmol/L (137-145)
[2023-08-07] MEDS: LEVOTHYROXINE SODIUM 88 MCG TABLET PO (05:29)
[2023-08-07] MEDS: CEFEPIME 2 GM/NS 50 ML 2 GM/50 ML BAG IVPB ×3 (05:29→21:26)
[2023-08-07] MEDS: SODIUM CHLORIDE 0.9% IV 1,000 ML 75 ML IV CONT (09:00)
[2023-08-07] MEDS: ASPIRIN 81 MG CHEWABLE TABLET PO (09:01)
[2023-08-07] MEDS: SERTRALINE HCL 50 MG TABLET 150 MG PO (09:01)
[2023-08-07] MEDS: ATORVASTATIN 40 MG TABLET 80 MG PO (09:02)
[2023-08-07] MEDS: CARBIDOPA/LEVODOPA 25/100 MG TABLET 2 TABLET PO ×4 (09:02→21:26)
[2023-08-07] MEDS: ENOXAPARIN 40 MG/0.4 ML SYRINGE SUB-Q (09:03)
[2023-08-07] MEDS: POTASSIUM CHLORIDE INJ 40 MEQ in SODIUM CHLORIDE 0.9% IV 500 ML 130 MEQ IVPB (09:04)
[2023-08-07] MEDS: AZITHROMYCIN 500 MG/NS 250 ML 500 MG/250 ML BAG 250 MG IVPB (09:38)
--- NOTE | 2023-08-07 11:36 | PM.IMPN ---
Progress Note: A&P Assessment and Plan (1) NSTEMI (non-ST elevated myocardial infarction): Code(s): I21.4 - Non-ST elevation (NSTEMI) myocardial infarction Status: Acute (2) Pneumonia: Qualifiers: Laterality: unspecified laterality Lung location: unspecified part of lung Pneumonia type: due to unspecified organism Qualified Code(s): J18.9 - Pneumonia, unspecified organism Code(s): J18.9 - Pneumonia, unspecified organism Status: Acute Plan # NSTEMI - significantly elevated troponins 8.6, 7.5. Patient had some diaphoresis to suggesting patient may have had a true NSTEMI - cardiology consulted: recommendation for medical management - echocardiogram: hyperdynamic greater than 70% EF, no WMA - with stable echo, perhaps patient's elevated troponins are secondary to his infection - Patient on aspirin and statin, adding metoprolol succinate 12.5mg and plavix for med management - hypokalemia potassium 3.2 giving KCL 40mEq PO and 40mEq IV # community-acquired pneumonia - recent strep infection - antibiotics: cefepime 08/04- - blood cultures NGTD - strep a test negative, Legionella ag, procalc 10, pneumococcal ag #Chronic conditions - Parkinson's dementia: Continue carbidopa-levodopa - Hypothyroidism: Synthroid - Constipation: Milk of magnesium - Depression: Sertraline - BPH: Flomax Diet: Regular diet DVT prophylaxis: lovenox Code status: DNR Disposition: downgrade to medical floor, discharge to [facility] tomorrow Subjective Date/time seen: 08/07/23 11:36 Interval history: Patient seen and examined. He is doing well. No problems overnight. Leukocytosis improving on cefepime. Anticipate discharge soon. Downgrade to med surge today. Potassium is 3.2 giving 40 mEq p.o. and IV. We are continuing conservative management for his NSTEMI. Review of Systems Review of Systems: unable to obtain due to mental status Exam Narrative: - GENERAL: frail male in no acute distress - EYES: EOMI. Anicteric. - HENT: moist mucous membranes. - LUNGS: decreased respiratory effort otherwise clear to auscultation bilaterally no wheezing or rhonchi - CARDIOVASCULAR: Regular rate and rhythm. No murmur. No JVD. - ABDOMEN: Soft, non-tender and non-distended. No palpable masses. - EXTREMITIES: No edema. Peripheral pulses 2+ - NEUROLOGIC: follows commands, responds with yes and no - PSYCHIATRIC: awake and alert, unable to assess orientation - SKIN: No rashes or lesions. Warm. Objective Data Vital Signs Vital Signs: Vital Signs - 24 hr 08/06/23 12:12 08/06/23 12:00 08/06/23 12:00 Temperature 37.8 C H Pulse Rate 82 Respiratory Rate Blood Pressure Pulse Oximetry Oxygen Delivery Room Air 08/06/23 12:00 08/06/23 15:22 08/06/23 14:00 Temperature 36.6 C 36.8 C Pulse Rate 52 L 85 84 Respiratory Rate 20 22 H Blood Pressure 97/66 L 147/89 H Pulse Oximetry 91 Oxygen Delivery 08/06/23 13:12 08/06/23 16:00 08/06/23 18:00 Temperature 37.3 C Pulse Rate 88 115 H Respiratory Rate Blood Pressure Pulse Oximetry Oxygen Delivery 08/06/23 16:00 08/06/23 20:00 08/06/23 20:00 Temperature 36.7 C Pulse Rate 86 82 Respiratory Rate 16 Blood Pressure 143/77 H Pulse Oximetry 97 Oxygen Delivery Room Air 08/06/23 20:00 08/06/23 22:00 08/07/23 00:00 Temperature 36.5 C Pulse Rate 84 80 74 Respiratory Rate 16 12 Blood Pressure 126/70 Pulse Oximetry 97 96 Oxygen Delivery Room Air 08/07/23 00:00 08/07/23 00:00 08/07/23 02:00 Temperature Pulse Rate 74 74 86 Respiratory Rate 18 Blood Pressure Pulse Oximetry 96 Oxygen Delivery Room Air 08/07/23 04:00 08/07/23 04:00 08/07/23 04:00 Temperature 36.6 C Pulse Rate 84 82 84 Respiratory Rate 20 20 Blood Pressure 137/83 Pulse Oximetry 99 99 Oxygen Delivery Room Air 08/07/23 05:31 08/07/23 07:51 08/07/23 08:32 Temperature
[2023-08-07] MEDS: POTASSIUM CHLORIDE 20 MEQ PACKET (FOR LIQUID) 40 MEQ PO (12:45)
[2023-08-07] MEDS: METOPROLOL SUCCINATE EXT REL 12.5 MG TABCR PO (12:46)
[2023-08-07] MEDS: CLOPIDOGREL BISULFATE 75 MG TABLET PO (12:46)
--- NOTE | 2023-08-07 13:31 | PC.NURSE ---
Report called to RN [phone]. Family at the bedside shelbie goff report on the pts new room.
--- NOTE | 2023-08-07 14:56 | PC.NURSE ---
Pt transferred to room [facility]-. All belongings transferred with the pt. Report given report to Monique ZIMMERMAN on IV ABX infusing at the time of transfer. No manifestations of distress noted, no nonverbal manifestations of distress noted at the time of transfer. Spouse escorted staff to the room during transfer of the pt which serve as notifications of transfer to room [facility]
[2023-08-07] MEDS: TAMSULOSIN HCL 0.4 MG CAPSULE 0.8 MG PO (21:26)
[2023-08-08 04:00] VITALS: BP 126/86; PULSE 61; RESP 22; TEMP 36.8; O2SAT 97
[2023-08-08] MEDS: CEFEPIME 2 GM/NS 50 ML 2 GM/50 ML BAG IVPB ×2 (05:44→12:43)
[2023-08-08 06:29] LABS: Hemoglobin 10.6 g/dL (14.0-18.0); Mean Corpuscular HGB Conc 31.2 g/dl (32-36); Mean Corpuscular Hemoglobin 28.4 pg (26-34); Mean Corpuscular Volume 91.2 fl (80-100); Mean Platelet Volume 10.4 fl (7.4-10.4); Platelet Count Result 235 k/mm3 (150-375); Red Blood Count 3.73 M/mm3 (4.6-6.20)
[2023-08-08] MEDS: LEVOTHYROXINE SODIUM 88 MCG TABLET PO (06:37)
[2023-08-08 06:43] LABS: Partial Thromboplastin Time 39.2 Seconds (22.3-36.8)
[2023-08-08 06:45] LABS: Anion Gap 6 mmol/L (4-12); Blood Urea Nitrogen 13 mg/dL (9-20); Calcium 8.8 mg/dL (8.4-10.2); Carbon Dioxide 21 mmol/L (22-30); Chloride 112 mmol/L (98-107); Estimated CRCL calculation 85 ml/min; Estimated Glomerular Filt Rate > 60; Glucose 120 mg/dL (65-110); Potassium 3.5 mmol/L (3.4-5.0); Sodium 139 mmol/L (137-145)
[2023-08-08 07:51] VITALS: O2SAT 94
[2023-08-08] MEDS: SERTRALINE HCL 50 MG TABLET 150 MG PO (09:25)
[2023-08-08] MEDS: ASPIRIN 81 MG CHEWABLE TABLET PO (09:25)
[2023-08-08] MEDS: CLOPIDOGREL BISULFATE 75 MG TABLET PO (09:25)
[2023-08-08] MEDS: CARBIDOPA/LEVODOPA 25/100 MG TABLET 2 TABLET PO ×2 (09:25→12:43)
[2023-08-08 09:26] VITALS: PULSE 63
[2023-08-08] MEDS: ACETAMINOPHEN 500 MG TABLET PO (09:26)
[2023-08-08] MEDS: AZITHROMYCIN 500 MG/NS 250 ML 500 MG/250 ML BAG 250 MG IVPB (09:26)
[2023-08-08] MEDS: METOPROLOL SUCCINATE EXT REL 12.5 MG TABCR PO (09:26)
[2023-08-08] MEDS: ATORVASTATIN 40 MG TABLET 80 MG PO (09:26)
[2023-08-08] MEDS: ENOXAPARIN 40 MG/0.4 ML SYRINGE SUB-Q (09:27)
--- NOTE | 2023-08-08 11:30 | PM.DS ---
DS: Admitting Diagnosis Discharge Date August 08, 2023 Admitting Diagnosis Elevated troponin DS: Discharge Diagnosis Discharge Diagnosis (1) NSTEMI (non-ST elevated myocardial infarction): Code(s): I21.4 - Non-ST elevation (NSTEMI) myocardial infarction Status: Acute (2) Pneumonia: Qualifiers: Laterality: unspecified laterality Lung location: unspecified part of lung Pneumonia type: due to unspecified organism Qualified Code(s): J18.9 - Pneumonia, unspecified organism Code(s): J18.9 - Pneumonia, unspecified organism Status: Acute (3) CAD (coronary artery disease): Code(s): I25.10 - Atherosclerotic heart disease of [place] coronary artery without angina pectoris Status: Acute (4) Dementia: Qualifiers: Alzheimer's disease onset: unspecified onset Dementia behavioral disturbance: with behavioral disturbance Dementia type: Alzheimer's Qualified Code(s): G30.9 - Alzheimer's disease, unspecified; F02.81 - Dementia in other diseases classified elsewhere with behavioral disturbance Code(s): F03.90 - Unspecified dementia, unspecified severity, without behavioral disturbance, psychotic disturbance, mood disturbance, and anxiety Status: Chronic (5) Parkinson disease: Code(s): G20 - Parkinson's disease Status: Chronic (6) BPH (benign prostatic hyperplasia): Code(s): N40.0 - Benign prostatic hyperplasia without lower urinary tract symptoms Status: Chronic DS: Summary Hospital Course Hospital Course: Mr. Rod is a 78-year-old male with past medical history Parkinson's disease with advanced dementia, nonverbal at baseline, permanent resident of [facility], BPH, depression, constipation, hypothyroidism was sent from long-term care [facility] for concern for NC. troponin peaked at 8.6 and EKG stable. Cardiology consulted and while the patient may have had NSTEMI, considerations of his quality of life in DNR status were taken and ultimately was decided to pursue conservative medical management. The patient had no complications ongoing. Heparin drip was stopped. Aspirin statin Plavix and metoprolol started. Of note the patient was recently treated for a Streptococcus infection and for a community acquired pneumonia present on admission was treated with cefepime and azithromycin procalcitonin on admission 10. On 08/08/2023 Mr. Rod is at his baseline, leukocytosis resolved. Hypokalemia resolved status post p.o. replacement. Therefore, he is discharged in stable condition back to his usual living at [facility]. Prescription made for another 5 days of Augmentin and azithromycin. He is to follow with PCP within 1 week. Patient was DNR during his admission. Time Spent with Patient Time attestation: Total time spent providing and/or coordinating discharge services: Exam Const: General: comfortable and no acute distress Eyes: Pupils: Equal, round and reactive pupils present Neck: Neck: supple Resp: Effort & Inspection: normal respiratory effort Auscultation: clear to auscultation bilaterally Cardio: Rate: regular rate Rhythm: regular rhythm DS: Data Data Completed and Pending Labs on day of discharge: Labs from last 24 hours 08/08/23 06:03 WBC 9.0 RBC 3.73 L Hgb 10.6 L Hct 34.0 L MCV 91.2 MCH 28.4 MCHC 31.2 L RDW 15.0 H Plt Count 235 MPV 10.4 APTT 39.2 H Sodium 139 Potassium 3.5 Chloride 112 H Carbon Dioxide 21 L Anion Gap 6 BUN 13 Creatinine 0.70 Estim Creat Clear Calc 85 Estimated GFR > 60 Glucose 120 H Calcium 8.8 Magnesium 2.0 Discharge Plan Discharge Attending physician on discharge: Jaqueline Oswald Consulting providers: Jovany Jaramillo Discharging Clinician: Jaqueline Oswald Patient Disposition: NH Detention/Asst Living Activity: may shower Diet: as tolerated Patient Instructions: Antibiotic Form Stand Alone Forms: [employer]
[2023-08-10 18:09] LABS: Pneumococcal Antigen Urine NOT DETECTED
[2023-08-12 00:53] LABS: Legionella pneumophila Ag Ur NOT DETECTED
== END 2023-08-08 14:35 | DRG 280 ==
LOC: ANHED 16:10 → ANH3MED 17:47 → ANHIMU 08-05 00:01 → ANH3MEDSUR 08-08 11:30 → ANHIMU 08-11 11:03
PROVIDERS: Internal Medicine; Admitting Provider Student in an Organized Health Care Education/Training Program; Emergency Provider Family Medicine; PCP Internal Medicine; Visit Provider General Practice
DX: I21.4 Non-ST elevation (NSTEMI) myocardial infarction (principal); J18.9 Pneumonia, unspecified organism; I25.10 Atherosclerotic heart disease of native coronary artery without angina pectoris; G20.A1 Parkinson's disease without dyskinesia, without mention of fluctuations; G30.9 Alzheimer's disease, unspecified; F02.80 Dementia in other diseases classified elsewhere, unspecified severity, without behavioral disturbance, psychotic disturbance, mood disturbance, and anxiety; N40.0 Benign prostatic hyperplasia without lower urinary tract symptoms; E03.9 Hypothyroidism, unspecified; E87.6 Hypokalemia; K59.00 Constipation, unspecified; Z66 Do not resuscitate
CPT/HCPCS: 36415; 70450; 80048; 80053; 80061; 83036; 83735; 84145; 84443; 84484; 85025; 85027; 85610; 85730; 87449; 87651; 87899; 93005; 96361; 96375; 99285; A9270; C8929; G0378; J0456; J0692; J0696; J1644; J1650; J3480; J7030; J7040; Q9957

== ENCOUNTER 2023-09-10 14:17 | Outpatient (CLI) | payer MEDICARE, SELFPAY ==
--- NOTE | ~2023-09-10 | XR_ITS ---
XR wrist LT min 3V DATE: 09/10/2023 14:54 INDICATION: Left wrist and hand injury TECHNIQUE: 4 views COMPARISON: None FINDINGS: Mild triangular cartilage chondrocalcinosis. Mild osteoarthritis of the first carpometacarpal joint and to a greater extent at the first through t hird metacarpophalangeal joints. No fracture or dislocation, periosteal reaction or bone destruction of the left wrist is detected. IMPRESSION: Polyarticular osteoarthritis No fracture or dislocation Reviewed, dictated and finalized at location B.
--- NOTE | ~2023-09-10 | XR_ITS ---
XR hand LT min 3V DATE: 09/10/2023 14:53 INDICATION: Left wrist and hand injury TECHNIQUE: 3 views COMPARISON: None FINDINGS: There is mild osteoarthritis at the first carpometacarpal joint and to a greater extent at the first through third metacarpophalangeal joints. There is mild osteoarthritis at the interphalange al joints. No erosive changes noted. Mild calcification is at the triangular cartilage. Osteopenia. No fracture, dislocation, periosteal reaction or bone destruction is detected. IMPRESSION: Osteopenia Polyarticular osteoarthritis [place] cartilage calcification No fracture or dislocation Reviewed, dictated and finalized at location B.
== END 2023-09-10 14:18 | disposition home or self-care (01) ==
LOC: CHSLAB 14:20
PROVIDERS: PCP Internal Medicine; Visit Provider Nurse Practitioner Family
DX: M19.042 Primary osteoarthritis, left hand (principal); M19.032 Primary osteoarthritis, left wrist; M61.442 Other calcification of muscle, left hand; M85.88 Other specified disorders of bone density and structure, other site
CPT/HCPCS: 73110; 73130

== ENCOUNTER 2023-10-06 16:34 | Outpatient (CLI) | payer MEDICARE, SELFPAY ==
--- NOTE | ~2023-10-06 | XR_ITS ---
EXAMINATION: XR chest 2V Exam Date/Time: 10/06/2023 16:45 CDT HISTORY: cough Comparison: 08/04/2023. RESULT: Lines, tubes, and devices: None. Lungs and pleura: Low volumes with crowding, streaky bibasilar atelectasis otherwise clear. The post erior costophrenic angles are excluded from the [id number]. Cardiomediastinal silhouette: Stable. Other: No acute osseous finding. Distended stomach. IMPRESSION: No acute cardiopulmonary process. Gastric distention. Reviewed, dictated and finalized at location K.
== END 2023-10-06 16:35 | disposition home or self-care (01) ==
LOC: CHSIMG 16:36
PROVIDERS: PCP Internal Medicine; Visit Provider Nurse Practitioner Family
DX: R05.1 Acute cough (principal); R14.0 Abdominal distension (gaseous)
CPT/HCPCS: 71046

== ENCOUNTER 2024-06-01 15:40 | Emergency (ER) | payer MEDICARE, SELFPAY ==
[2024-06-01] VITALS (42 sets, daily range): BP systolic 97–148; BP diastolic 54–129; PULSE 81–101; RESP 17–33; TEMP 36.4–36.9; O2SAT 85–100
--- NOTE | ~2024-06-01 | XR_ITS ---
CHEST RADIOGRAPH CLINICAL HISTORY: altered mental status,WEAKNESS,HYPOXIA . COMPARISON: 10/06/2023 TECHNIQUE: Single portable view of the chest. FINDINGS Moderate hiatal hernia is present. The remainder of the cardiomediastinal silhouette is otherwise unremarkable. Increased interstitial markings are identified bilaterally, findings suggesting mild pulmonary vascul ar congestion. Patchy airspace disease within the right mid to lower lung field for which an early infiltrate is gianfranco pected. The remainder of the lungs are clear. IMPRESSION: Mild pulmonary vascular congestion with an early infiltrate suspected in the right mid to lower lung field. Reviewed, dictated and finalized at location A. CHECKER IMPRESSION: Mild pulmonary vascular congestion with an early infiltrate suspected in the ri ght mid to lower lung field.
--- NOTE | ~2024-06-01 | CT_ITS ---
EXAMINATION: CT brain wo con DATE: 06/01/2024 16:22 INDICATION: Altered mental status. Weakness and hypoxia. TECHNIQUE: Computed tomography (CT) of the head was performed without intravenous contrast. Sagittal and coronal reconstructions were performed. The mA was adjusted according to patient size. Iterative reconstruction technique was employed. The dose-length product was 681.00 mGy-cm. COMPARISON: head CT dated 08/04/2023 FINDINGS: No acute intracranial hemorrhage, acute infarction or abnormal extra axial fluid collection. Small ol d lacunar infarct at the head of the right caudate nucleus. There is moderate scattered white matter hypoattenuation consistent with chronic small vessel ischemic disease. Symmetric prominence of the bailey lci and ventricles consistent with moderate to severe diffuse cerebral volume loss with temporal lobe predominance. No mass/mass effect. Mucosal thickening in the bilateral ethmoid sinuses. The orbits a nd mastoid air cells are normal. IMPRESSION: 1. 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 No acute intracranial process. 2. Likely age-related changes including moderate to severe temporal lobe predominant diffuse cerebral volume loss with moderate scattered white matter hypoattenuation consistent with chronic small vesse l ischemic disease. Reviewed, dictated and finalized at location A. [facility] IMPRESSION: 1. 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 No acute intracranial process. 2. Likely age-related changes including moderate to severe temporal lobe predom inant diffuse cerebral volume loss with moderate scattered white matter hypoatt enuation consistent with chronic small vessel ischemic disease.
--- NOTE | 2024-06-01 15:52 | ED.AMS ---
HPI - Altered Mental Status General Chief Complaint: Altered Mental Status Stated Complaint: weakness Time Seen by Provider: 06/01/24 15:44 Source: EMS Mode of arrival: EMS Limitations: altered mental status History of Present Illness HPI narrative: 79-year-old male with a history of dementia, parkinsonism, nonverbal at baseline, CAD status post stent, BPH, hypothyroidism, dyslipidemia for was brought in from the alf by EMS for -- altered mental status. The patient is usually nonverbal but does help with feeding and ADLs. Today the patient has been unresponsive to verbal commands. -- nausea/vomiting / diarrhea with decreased oral intake for the past 3 days -- flu-like symptoms No other history is available. Patient is afebrile and hemodynamically stable. patient is DNR MD complaint: altered mental status Onset (ago): day(s) ( One day) Timing confirmed by: spouse Related Data Home Medications ?Medication ?Instructions ?Recorded ?Confirmed ?Last Taken ?Type carbidopa 25 mg-levodopa 100 mg 2 tablet PO QID PARKINSONS 07/27/20 08/04/23 08/22/20 History disintegrating tablet sertraline 100 mg tablet 150 mg PO DAILY 07/27/20 08/04/23 08/22/20 History tamsulosin 0.4 mg capsule 0.8 mg PO HS BPH 07/27/20 08/04/23 08/22/20 History acetaminophen 500 mg tablet 500 mg PO QID PRN Pain 07/30/22 08/04/23 Unknown History aluminum-mag hydroxide-simethicone 15 ml PO Q6H PRN INDGISTION 07/30/22 08/04/23 Unknown History 200 mg-200 mg-20 mg/5 mL oral susp levothyroxine 88 mcg tablet 88 mcg PO DAILY 07/30/22 08/04/23 Unknown History magnesium hydroxide 400 mg/5 mL 30 ml PO Q12H PRN Constipation 08/04/23 08/04/23 Unknown History oral suspension (Milk of Magnesia) cetirizine 10 mg capsule (All Day 10 mg PO DAILY 06/01/24 Unknown History Allergy (cetirizine)) clobetasol 0.05 % topical cream 1 applic topical DAILY 06/01/24 Unknown History fluticasone propionate 50 2 spray intranasal HS 06/01/24 Unknown History mcg/actuation nasal spray,suspension (24 Hour Allergy Relief) ondansetron 4 mg disintegrating 4 mg PO Q6H PRN nausea and vomiting 06/01/24 Unknown History tablet tacrolimus 0.1 % topical ointment 1 applic topical Q12H 06/01/24 Unknown History Allergies Allergy/AdvReac Type Severity Reaction Status Date / Time No Known Allergies Allergy Verified 06/01/24 15:57 Review of Systems Review of Systems: ROS unobtainable: Yes unobtainable due to mental status [facility] Past Medical History Medical History Fall from standing CAD (coronary artery disease) Aortic aneurysm without rupture Cardiomyopathy Thoracic aneurysm without mention of rupture BPH (benign prostatic hyperplasia) Renal calculi Alzheimer disease Hyperlipidemia Parkinson disease Hernia Dementia Surgical History Surgical History Hx of cervical spinal arthrodesis Stented coronary artery Family History Family History Father No problems noted. 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 Darling Rod's listed as his spouse. Patient resides at a alf. Smoking packs per day: 1 Smoking cigarettes per day: 20.0 Years smoked: 40 Smoking pack-years: 40.00 Smoking status: Former smoker Tobacco type: cigarettes Second hand tobacco smoke exposure: Yes Alcohol intake: never Substance use: never Substance use type: does not use Living arrangements: alf Additional living arrangements comments: [facility] [phone] Gender identity (if verbalized by the patient): Male Sexual Orientation (if Verbalized by the Patient): Straight or Heterosexual Spiritual care concerns: No Exam Narrative: Oxygen saturation of 95% on room air Afebrile Const: General: no acute distress Limitations: altered mental status HENMT: Head: normal to inspection Ears: external ears normal Face/Nose/Sinus: Normal external nose present Face and sinus: normal facial exam Eyes: Conjunctivae: conjunctivae normal Pupils: Equal, round and reactive pupils present EOM: EOMs intact bilaterally Direct Ophthalmoscopy: no photophobia Neck: Neck: normal visual inspection, no lymphadenopathy and no meningeal signs Chest: Chest palpation & inspection: normal inspection of the chest Resp: Effort & Inspection: normal respiratory effort Auscultation: clear to auscultation bilaterally Cardio: Rate: regular rate Rhythm: regular rhythm GI: GI Palp: Yes Soft to palpation Auscultation: normal bowel sounds Other: no tenderness/ rigidity /rebound. : General: Yes no CVA tenderness Back/Spine/Pelvis: Back: no CVA tenderness Skin: General skin exam: normal color Rashes: no rashes Wounds: no wounds Neuro: General: moves all extremities Other: Patient is nonverbal. Does not respond to verbal commands generalized rigidity. Extrem: General: normal to inspection and no clubbing, cyanosis or edema Course Course Emergency Course: altered mental status-- difficult to assess his mental status as the patient is nonverbal. CT of the head did not show any acute findings. upper respiratory tract infection gastroenteritis dehydration with hypernatremia-- patient has a deficit of around 3.3 L. will give 500 mL of LR and reassess his electrolytes. acute renal failure non-STEMI-- Will start anticoagulation positive D-dimer-- Unable to do a CTA of the chest/ PE protocol in view of the renal failure. right lower lobe pneumonia-- will treat with Zosyn/vancomycin. Sent nasal MRSA. UTI OTOLARYNGOLOGY NURSE/PA Physician Supervision Vital Signs Vital signs: Vital Signs Pulse Rate 88 06/01/24 15:40 Respiratory Rate 20 06/01/24 15:40 Blood Pressure 148/101 H 06/01/24 15:40 Pulse Oximetry 91 06/01/24 15:40 Oxygen Delivery Nasal Cannula 06/01/24 15:40 Oxygen Flow Rate 5 06/01/24 15:40 Temperature 36.4 C 06/01/24 15:55 Pulse Rate 90 06/01/24 16:46 Respiratory Rate 19 06/01/24 16:46 Blood Pressure 100/83 06/01/24 16:46 Pulse Oximetry 98 06/01/24 16:46 Oxygen Delivery Room Air 06/01/24 16:46 Oxygen Flow Rate 6 06/01/24 16:00 MDM - Altered Mental Status MDM Narrative Medical decision making narrative: altered mental status upper respiratory tract infection-- tested negative for RSV/influenza / COVID gastroenteritis dehydration acute renal failure with hypernatremia non-STEMI positive D-dimer right lower lobe pneumonia UTI Differential Diagnosis Differential diagnosis: Likely altered mental status, subarachnoid hemorrhage and sepsis Medical Records Attestation: I reviewed the patient's medical records. Lab Data Attestation: I reviewed the patient's lab results. 06/01/24 16:34 06/01/24 16:34 Labs: Lab Results 06/01/24 06/01/24 Range/Units 16:04 16:34 WBC 9.8 (4.8-10.8) K/mm3 RBC 5.11 (4.70-6.10) M/mm3 Hgb 14.6 (12.4-15.3) g/dL Hct 48.7 H (37.0-46.0) % MCV 95.3 (78.0-102.0) fL MCH 28.6 (27.0-31.0) pg MCHC 30.0 L (32-36) g/dL RDW 16.3 H (11.6-14.4) % Plt Count 166 (150-420) K/mm3 MPV 11.8 H (8.7-11.0) fl Immature Gran % (Auto) 0.5 H (0.0-0.0) % Neut % (Auto) 84.0 H (50.0-70.0) % Lymph % (Auto) 11.3 L (18.0-42.0) % [place] % (Auto) 4.0 (2.0-11.0) % Eos % (Auto) 0.1 L (1.0-6.0) % Baso % (Auto) 0.1 (0.0-1.0) % Lymph # (Auto) 1.11 (1.10-4.50) K/mm3 [place] # (Auto) 0.39 (0.10-0.90) K/mm3 Eos # (Auto) 0.01 L (0.02-0.50) K/mm3 Baso # (Auto) 0.01 (0.00-0.10) K/mm3 Abs Immat Gran (auto) 0.05 H (0.00-0.00) K/mm3 Absolute Neuts (auto) 8.25 H (1.70-7.20) K/mm3 Absolute Nucleated RBC 0.00 (0.00-0.00) K/mm3 Nucleated RBC % 0.0 (0-0.0) % PT Pending INR Pending APTT Pending D-Dimer 1.91 H* (0.19-0.50) mg/L Sodium 150 H (136-145) mmol/L Potassium 3.8 (3.5-5.1) mmol/L Chloride 111 H (98-108) mmol/L Carbon Dioxide 27 (21-32) mmol/L Anion Gap 12 (4-12) mmol/L BUN 60 H (7-18) mg/dL Creatinine 2.02 H (0.70-1.30) mg/dL Estim Creat Clear Calc 29 ml/min Estimated GFR 32 L (59 - ) Glucose 145 H (70-99) mg/dL Calculated Osmolality 329 H (285-295) mOsm/kg Lactic Acid 2.5 H (0.4-2.0) mmol/L Calcium 8.4 L (8.5-10.1) mg/dL Total Bilirubin 0.7 (0.00-1.00) mg/dL AST 71 H (15-37) U/L ALT 11 L (16-63) U/L Alkaline Phosphatase 81 (46-116) U/L Troponin I 64671.0 H* (0.00-60.4) ng/L NT-Pro-B Natriuret Pep 1326 H (0-450) pg/mL Total Protein 7.1 (6.4-8.2) g/dL Albumin 2.5 L (3.4-5.0) g/dL Lipase 54 (16-77) U/L TSH 2.65 (0.36-3.74) uIU/mL Urine Color Yellow (Yellow) Urine Appearance Sl cloudy A (Clear) Urine pH 5.5 (5.0-8.0) Ur Specific Roll 1.020 (1.010-1.020) Urine Protein Trace H (Negative) Urine Glucose (UA) Negative (Negative) Urine Ketones Negative (Negative) Ur Blood (Man) 1+ H (Negative) Urine Nitrate Negative (Negative) Urine Bilirubin Negative (Negative) Urine Urobilinogen 0.2 (0.2-1.0) mg/dL Leukocyte Esterase Rfl 1+ H (Negative) BLADE/UL Urine RBC 3-5 H (0-2) /hpf Urine WBC 21-30 H (0-3) /hpf Ur Squamous Epith Cells Few (Few) /hpf Urine Bacteria 4+ (None) /hpf Influenza A (RT-PCR) Negative (Negative) Influenza B (RT-PCR) Negative (Negative) RSV (RT-PCR) Negative (Negative) SARS-CoV-2 RNA (RT-PCR) Negative (Negative) ABG Data ABG results: 06/01/24 16:34 Puncture Site Cancelled ABG pH Cancelled ABG pCO2 Cancelled ABG pO2 Cancelled ABG PO2/FiO2 Ratio Cancelled ABG HCO3 Cancelled ABG O2 Saturation Cancelled ABG O2 Content Cancelled ABG Base Excess Cancelled A-a Gradient Cancelled Oxyhemoglobin Cancelled Total Hemoglobin Cancelled O2 Delivery Device Cancelled O2 Liters/Min Cancelled FiO2 Cancelled Discharge Plan Discharge Clinical Impression: Pneumonia, Non-ST elevated myocardial infarction (non-STEMI), Hypernatremia, D-dimer, elevated, Acute UTI Altered mental status Qualifiers: Altered mental status type: unspecified Qualified Code(s): R41.82 - Altered mental status, unspecified Acute renal failure Qualifiers: Acute renal failure type: unspecified Qualified Code(s): N17.9 - Acute kidney failure, unspecified Patient Disposition: Still a Patient Condition: Unstable Additional Instructions: transfer patient to [facility] in [place] Patient Language: [place] Prescriptions: No Action tacrolimus 0.1 % ointment 1 applic TOPICAL Q12H All Day Allergy (cetirizine) 10 mg capsule 10 mg PO DAILY clobetasol 0.05 % cream 1 applic TOPICAL DAILY fluticasone propionate [24 Hour Allergy Relief] 50 mcg/actuation spray,suspension 2 spray intranasal HS Rx Instructions: administer into each nostril ondansetron 4 mg tablet,disintegrating 4 mg PO Q6H PRN (Reason: nausea and vomiting) sertraline 100 mg Tablet 150 mg PO DAILY tamsulosin 0.4 mg Capsule 0.8 mg PO HS carbidopa-levodopa 25-100 mg Tablet,Disintegrating 2 tablet PO QID levothyroxine 88 mcg tablet 88 mcg PO DAILY acetaminophen 500 mg Tablet 500 mg PO QID PRN (Reason: Pain) alum-mag hydroxide-simeth 200-200-20 mg/5 mL Suspension 15 ml PO Q6H PRN (Reason: INDGISTION) Rx Instructions: administer between meals and at bedtime magnesium hydroxide [Milk of Magnesia] 400 mg/5 mL suspension 30 ml PO Q12H PRN (Reason: Constipation) aspirin [Children's Aspirin] 81 mg Tablet,Chewable 81 mg PO DAILY@0800 Qty: 30 0RF atorvastatin 40 mg Tablet 80 mg PO DAILY Qty: 30 0RF metoprolol succinate [Toprol XL] 25 mg tablet extended release 24 hr 12.5 mg PO DAILY Qty: 30 0RF Follow-up/Referrals: Inna Hidalgo MD [Primary Care Provider] - Time of Disposition: 18:26
--- OUTSIDE RECORDS SUMMARY | 2024-06-01 15:58 | XMS_ITS | Clinical Summary ---
Author Organization [facility] Address [address] [place] [address] Care Team Providers Care Special Agent Secret Service Name Role Phone Inna Hidalgo MD Primary Care Provider [phone] Maximo Krishna MD Unavailable Unavailabl e Allergies Active Allergy Reactions Criticality Noted Date Comments Beta Adrenergic Blockers Unknown 10/05/2015 Perflutren Lipid Microspheres Other (see comment) 01/22/2018 Causes back pain Medications tamsulosin (FLOMAX) 0.4 MG Cap Flomax (tamsulosin) Capsule, Sust. Release 24 hr 0.4 mg; take 1 tablet by mouth at bedtime; 0; 01-Aug-2015; Active 6 Active desmopressin (DDAVP) 0.2 MG tablet Take 2 tablets by mouth daily. 6 Active mirtazapine 15 MG tablet Take 15 mg by mouth nightly at bedtime. Active sertraline 100 MG tablet Take 150 mg by mouth daily. Active rosuvastatin 10 MG tablet Take 10 mg by mouth daily. Active carbidopa-levodopa 25-100 MG tablet Take 1 tablet by mouth 4 (four) times daily. Active ranitidine 150 MG tablet Take 150 mg by mouth 2 (two) times daily. Active donepezil 10 MG dispersable tablet Take 1 tablet by mouth daily. Active ondansetron 4 MG disintegrating tablet Take 1 tablet (4 mg total) by mouth every 8 (eight) hours as needed for Nausea. 12 tablet 0 Active Active Problems Problem Noted Date Diagnosed Date Thoracic aortic aneurysm without rupture 018 HLD (hyperlipidemia) 02/25/2018 Dilated cardiomyopathy ([facility]) 018 S/P coronary artery stent placement 02/25/2018 Dementia ([facility]) 02/25/2018 Family History Relation Status Comments Father Maternal Grandfather Maternal Grandmother Mother Paternal Grandfather Paternal Grandmother Social History Tobacco Use Types Packs/Day Years Used Date Smoking Tobacco: Former Cigarettes Q uit: 2006 Smokeless Tobacco: Never Sex and Gender Information Value Date Recorded Sex Assigned at Not on file Legal Sex Male 11:03 PM CDT Gender Identity Not on file Sexual Orientation Not on file Last Filed Vital Signs Vital Sign Reading Time Taken Comments Blood Pressure 120/68 11/28/2019 11:15 PM CDT Pulse 53 11/28/2019 11:15 PM CDT Temperature 36.2 C (97.1 F) 11/28/2019 7:53 PM CDT Respiratory Rate 12 11/28/2019 11:15 PM CDT Oxygen Saturation 95% 11/28/2019 11:15 PM CDT Inhaled Oxygen Concentration - - Weight 90.7 kg (200 lb) 11/28/2019 7:53 PM CDT Height 180.3 cm (5' 11 ) 11/28/2019 7:53 PM CDT Body Mass Index 27.89 11/28/2019 7:53 PM CDT Plan of Treatment Health Maintenance Due Date Last Done Comments Hepatitis C 1963 DTaP, Tdap and Td Vaccines ( 1 - Tdap) 1966 Zoster Vaccines (1 of 2) 1997 AAA SCREENING 2012 Annual Medicare Wellness Visit 2012 Pneumococcal Vaccine: 65+ Years (2 of 2 - PPSV23 or PCV20) 10/26/2015 10/25/2014 RSV Immunization or 60+ Years (1 - 1-dose 75+ series) 2022 COVID-19 Vaccine (2023-2 5 season) 2023 Influenza Adult (#1) 2024 02/05/2017, 04/24/2016, 03/29/2014 Meningococcal B Vaccine Aged Out No l onger eligible based on patient's age to complete this topic Meningococcal Vaccine Aged Out No adalberto adirana eligible based on patient's age to complete this topic RSV Immunizations Under 20 Months Aged Out No longer eligible b ased on patient's age to complete this topic Additional Health Concerns Infection Onset Date Last Indicated MRSA 03/17/2017 03/17/2017 Insurance AETNA AETNA Care Teams Special Agent Secret Service Relationship Specialty Start Date End Date Inna Hidalgo MD [address] [place] [address] PCP - General INTERNAL MEDICINE 01/06/18 Maximo Krishna MD [address] [place] [address] [place] [employer] Java Developer CARDIOVASCULAR DISEASE 01/06/18
--- NOTE | 2024-06-01 16:03 | ECG_ITS ---
Test Date: 2024-06-01 16:30:22 Measurements Intervals [place] Rate: 79 P: 0 IA: 0 QRS: -78 QRSD: 106 T: 75 QT: 349 QTc: 401 Interpretive Statements SIGNIFICANT BASELINE ARTIFACT PRECLUDES RHYTHM INTERPRETATION RIGHT BUNDLE BRANCH BLOCK LEFT ANTERIOR FASCICULAR BLOCK BASELINE ARTIFACT- I, II, III, AVR, AVL, AVF, V1-V6 ABNORMAL ECG No previous ECG available for comparison Electronically Signed On 06-01-2024 18:05:51 WIRE BENDER by Manuel Silva D.O.
--- NOTE | 2024-06-01 16:25 | PC.NURSE ---
covid culture sent to lab
[2024-06-01 16:46] LABS: Basophils Absolute Auto 0.01 K/mm3 (0.00-0.10); Basophils Percent Auto 0.1 % (0.0-1.0); Eosinophils Absolute Auto 0.01 K/mm3 (0.02-0.50); Eosinophils Percent Auto 0.1 % (1.0-6.0); Hematocrit 48.7 % (37.0-46.0); Hemoglobin 14.6 g/dL (12.4-15.3); Immature Granulocyte Absolute 0.05 K/mm3 (0.00-0.00); Immature Granulocyte Percent A 0.5 % (0.0-0.0); Lymphocytes Absolute Auto 1.11 K/mm3 (1.10-4.50); Lymphocytes Percent Auto 11.3 % (18.0-42.0); Mean Corpuscular Hemoglobin 28.6 pg (27.0-31.0); Mean Corpuscular Volume 95.3 fL (78.0-102.0); Mean Platelet Volume 11.8 fl (8.7-11.0); Monocytes Absolute Auto 0.39 K/mm3 (0.10-0.90); Neutrophils Absolute Auto 8.25 K/mm3 (1.70-7.20); Platelet Count Result 166 K/mm3 (150-420); Red Blood Count 5.11 M/mm3 (4.70-6.10); Red Cell Distribution Width 16.3 % (11.6-14.4); White Blood Count 9.8 K/mm3 (4.8-10.8)
[2024-06-01 16:59] LABS: Add Urine Microscopic? YES; Appearance Urine Sl Cloudy (Clear); Bilirubin Urine Negative (Negative); Blood Urine 1+ (Negative); Color Urine Yellow (Yellow); Glucose Urine UA Negative (Negative); Ketones Urine Negative (Negative); Leukocyte Esterase Ur 1+ LEU/UL (Negative); Nitrate Urine Negative (Negative); Protein Urine Trace (Negative); Urobilinogen Urine 0.2 mg/dL (0.2-1.0); pH Urine 5.5 (5.0-8.0)
[2024-06-01 17:04] LABS: Lactic Acid Reflex 2.5 mmol/L (0.4-2.0)
[2024-06-01 17:08] LABS: Bacteria Urine 4+ /hpf; Squamous Epithelial Cell Urine Few /hpf (Few); WBC Urine 21-30 /hpf (0-3)
[2024-06-01 17:09] LABS: D Dimer 1.91 mg/L (0.19-0.50)
[2024-06-01 17:12] LABS: Alanine Aminotransferase 11 U/L (16-63); Albumin Level 2.5 g/dL (3.4-5.0); Alkaline Phosphatase 81 U/L (46-116); Anion Gap 12 mmol/L (4-12); Aspartate Amino Transferase 71 U/L (15-37); Bilirubin,Total 0.7 mg/dL (0.00-1.00); Blood Urea Nitrogen 60 mg/dL (7-18); Calcium 8.4 mg/dL (8.5-10.1); Carbon Dioxide 27 mmol/L (21-32); Chloride 111 mmol/L (98-108); Estimated CRCL calculation 29 ml/min; Estimated Glomerular Filt Rate 32; Glucose 145 mg/dL (70-99); Lipase 54 U/L (16-77); NT Pro B Type Natriuretic Pept 1326 pg/mL (0-450); Osmolality Calculated 329 mOsm/kg (285-295); Potassium 3.8 mmol/L (3.5-5.1); Sodium 150 mmol/L (136-145); Total Protein 7.1 g/dL (6.4-8.2)
[2024-06-01 17:14] LABS: Thyroid Stimulating Hormone 2.65 uIU/mL (0.36-3.74)
[2024-06-01 17:22] LABS: SARS-CoV-2 RNA PCR Negative (Negative)
--- NOTE | 2024-06-01 17:30 | PC.NURSE ---
dr erickson in with of pt , discussing plan of care regarding elevated troponin
[2024-06-01] MEDS: LACTATED RINGERS 500 ML 999 ML IV CONT (17:40)
[2024-06-01 17:45] LABS: Influenza A QL RT-PCR Negative (Negative); Influenza B QL RT-PCR Negative (Negative); RSV RNA, RT-PCR Negative (Negative)
[2024-06-01] MEDS: PIPERACILLN/TAZ 3.375GM/NS50ML 3.375 GM/50 ML BAG IVPB (17:55)
[2024-06-01] MEDS: HEPARIN SODIUM 5,000 UNITS/ML VIAL 4000 UNITS IV PUSH (17:59)
[2024-06-01] MEDS: HEPARIN SOD/D5W 100 UNITS/ML 25,000 UNITS/250 ML BAG 10 UNITS IV CONT (18:03)
[2024-06-01 18:12] LABS: INR 1.1; Partial Thromboplastin Time 31.4 Sec (23.9-30.70); Prothrombin Time 11.7 Seconds (9.50-12.1)
[2024-06-01] MEDS: VANCOMYCIN 1,000 MG/NS 250 ML 1,000 MG/250 ML BAG 250 MG IVPB (18:30)
--- NOTE | 2024-06-01 19:13 | PC.NURSE ---
report to arnulfo pablo
[2024-06-01 19:44] LABS: MRSA (PCR) NOT DETECTED (NOT DETECTE)
[2024-06-01 19:44] LABS: Reflex Lactic Acid Yes or No Add Lactic
[2024-06-01] MEDS: VANCOMYCIN 1,250 MG/NS 250 ML 1,250 MG/250 ML BAG 166.67 MG IVPB (19:54)
--- NOTE | 2024-06-01 20:19 | PC.NURSE ---
[facility] was paged at [phone] for this patient, day shift nurse stated that as soon as the other rig got back from transfer, the other would be on the way. 2003- called for an update on rig status to transfer this patient, was told that we needed to wait longer with unknown ETA or call another service. [facility] accepted to transfer patient.
--- NOTE | 2024-06-03 12:15 | PC.NURSE ---
PATIENT WAS TRANSFERRED TO [facility]. PATIENT IS IN ROOM [id number]. FAX NUMBER [phone], FINAL URINE CULTURE AND PRELIMINARY BLOOD CULTURE FAXED TO HOSPITAL.
== END 2024-06-01 20:50 | disposition short-term general hospital (02) ==
PROVIDERS: Emergency Provider Internal Medicine Critical Care Medicine; PCP Internal Medicine
DX: J18.9 Pneumonia, unspecified organism (principal); I21.4 Non-ST elevation (NSTEMI) myocardial infarction; E87.0 Hyperosmolality and hypernatremia; R41.82 Altered mental status, unspecified; N17.9 Acute kidney failure, unspecified; R79.1 Abnormal coagulation profile; N39.0 Urinary tract infection, site not specified; G20.A1 Parkinson's disease without dyskinesia, without mention of fluctuations; F02.80 Dementia in other diseases classified elsewhere, unspecified severity, without behavioral disturbance, psychotic disturbance, mood disturbance, and anxiety; I25.10 Atherosclerotic heart disease of native coronary artery without angina pectoris; E03.9 Hypothyroidism, unspecified; Z79.899 Other long term (current) drug therapy; Z20.822 Contact with and (suspected) exposure to COVID-19; Z87.891 Personal history of nicotine dependence
CPT/HCPCS: 36415; 70450; 71045; 80053; 81001; 83605; 83690; 83880; 84443; 84484; 85025; 85380; 85610; 85730; 87040; 87086; 87186; 87637; 87641; 93005; 96365; 96366; 96367; 96375; 99285; J1644; J2543; J3370; J7120

== ENCOUNTER 2024-08-23 08:33 | Outpatient (CLI) | payer MEDICARE, SELFPAY ==
--- OUTSIDE RECORDS SUMMARY | 2024-08-23 08:56 | XMS_ITS | Clinical Summary ---
Author Organization [facility] Address [address] [place] [address] Care Team Providers Care Restaurant Busser Name Role Phone Inna Hidalgo MD Primary Care Provider [phone] Maximo Krishna MD Unavailable [phone] Allergies Active Allergy Reactions Criticality Noted Date [...] rupture 018 HLD (hyperlipidemia) 02/25/2018 Dilated cardiomyopathy ([facility]) 018 S/P coronary artery stent placement 02/25/2018 Dementia 02/25/2018 Family History Relation Status Comments Father [...] Annual Medicare Wellness Visit 2012 Pneumococcal Vaccine: 50+ Ye ars (2 of 2 - PPSV23) 10/26/2015 10/25/2014 RSV Immunization or 60+ Years (1 - 1-dose 75+ series) 2022 COVID-19 Vaccine (2023-2 5 season) 2023 Meningococcal B Vaccine Aged Out No l onger eligible based on patient's age to complete this topic Meningococcal Vaccine Aged Out No adalberto adriana eligible based on patient's age to complete this topic RSV Immunizations Under 20 Months Aged Out No longer eligible based on patient's age to complete this topic Additional Health Concerns Infection Onset Date 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
[2024-08-23 11:03] LABS: Free T4 Free Thyroxine 0.94 ng/dL (0.76-1.46); Thyroid Stimulating Hormone 7.25 uIU/mL (0.36-3.74)
[2024-08-23 11:05] LABS: Free T3 2.21 pg/mL (2.18-3.98)
== END 2024-08-23 08:34 | disposition home or self-care (01) ==
LOC: CHSLAB 08:34
PROVIDERS: PCP Internal Medicine; Visit Provider Internal Medicine
DX: E03.9 Hypothyroidism, unspecified (principal)
CPT/HCPCS: 36415; 84439; 84443; 84481

== ENCOUNTER 2025-02-17 06:41 | Outpatient (NON) | payer MEDICARE, SELFPAY ==
--- OUTSIDE RECORDS SUMMARY | 2025-02-17 06:44 | XMS_ITS | Clinical Summary ---
Author Organization [facility] Address [address] [place] [address] Care Team Providers Care Independent Consultant Name Role Phone Inna Hidalgo MD Primary Care Provider [phone] Maximo Krishna MD Unavailable [phone] Allergies Active Allergy Reactions Criticality Noted Date [...] rupture 018 HLD (hyperlipidemia) 02/25/2018 Dilated cardiomyopathy 02/25/2018 S/P coronary artery stent placement 02/25/2018 Dementia [...] 7:53 PM CDT Height 180.3 cm (5' 11) 11/28/2019 7:53 PM CDT Body Mass Index 27.89 11/28/2019 7:53 PM CDT Plan of Treatment Health Maintenance Due Date Last Done Comments Hepatitis C 1963 DTaP, Tdap and Td Vaccines ( 1 - Tdap) 1966 Zoster Vaccines (1 of 2) 1997 AAA SCREENING 2012 Annual Medicare Wellness Visit 2012 Pneumococcal Vaccine: 50+ Years (2 of 2 - PCV20 or PCV21) 10/26/2015 10/25/2014 RSV Immunization or 60+ Years (1 - 1-dose 75+ series) 2022 COVID-19 Vaccine ( - 2024-2 6 season) 2024 Influenza Adult (#1) 2025 02/05/2017, 04/24/2016, 03/29/2014 Hepatitis A Vaccines Aged Out No long er eligible based on patient's age to complete this topic Meningococcal B Vaccine Aged Out No l [...] 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
[2025-02-17 08:58] LABS: Free T3 3.04 pg/mL (2.18-3.98)
[2025-02-17 09:58] LABS: Free T4 Free Thyroxine 0.92 ng/dL (0.78-2.19)
[2025-02-17 10:12] LABS: Thyroid Stimulating Hormone 4.890 uIU/mL (0.465-4.680)
== END 2025-02-17 06:42 | disposition home or self-care (01) ==
LOC: CHSLAB 06:42
PROVIDERS: PCP Internal Medicine; Visit Provider Internal Medicine
DX: E03.4 Atrophy of thyroid (acquired) (principal)
CPT/HCPCS: 36415; 84439; 84443; 84481